=== PATIENT | male | born 1955 | race American Indian/Alaskan Native ===

== ENCOUNTER 2020-08-16 05:25 | Observation (INO) | payer MEDICAID ==
[2020-08-16 07:36] LABS: Hematocrit 35.2 % (35.5-45.6); Hemoglobin 11.6 gm/dl (11.8-15.2); Mean Corpuscular HGB Conc 33 % (32-34); Mean Corpuscular Volume 73 fl (84-94); Platelet Count 165 K/mm3 (140-440); Red Blood Count 4.83 M/mm3 (3.65-5.03); Red Cell Distribution Width 17.5 % (13.2-15.2)
[2020-08-16 07:43] LABS: Albumin 4.3 g/dL (3.9-5); Calcium 9.2 mg/dL (8.4-10.2)
[2020-08-16 08:02] LABS: Bilirubin,Urine NEG (Negative); Blood,Urine SM (Negative); Color,Urine Yellow (Yellow); Urobilinogen,Urine < 2.0 mg/dL (<2.0)
[2020-08-16 08:08] LABS: Protein,Urine >500 mg/dL (Negative)
[2020-08-16 09:59] LABS: Eosinophils # (Auto) 0.2 K/mm3 (0.0-0.4); Eosinophils % (Auto) 5.5 % (0.0-4.3); Monocytes # (Auto) 0.4 K/mm3 (0.0-0.8); Monocytes % (Auto) 8.8 % (0.0-7.3)
[2020-08-16 10:17] LABS: Basophils % (Auto) 0.5 % (0.0-1.8); Lymphocytes % (Auto) 28.7 % (13.4-35.0)
[2020-08-16 10:18] LABS: Lymphocytes # (Auto) 1.2 K/mm3 (1.2-5.4)
[2020-08-16] MEDS ORDERED: MORPHINE 4 MG/1 ML INJ IV ONE (10:51)
[2020-08-16] MEDS ORDERED: hydrALAZINE 20 MG/1 ML INJ IV ONE (10:51)
--- NOTE | 2020-08-16 10:54 | Emergency Department Report ---
HPI - General Chief Complaint: Abdominal Pain Time Seen by Provider: 08/16/20 10:29 - HPI HPI: This is a 65-year-old -L[place] male who presents to the emergency department via EMS from his personal [facility] with a complaint of a 3-day history of left-sided abdominal pain and left leg pain, in the groin and calf. He denies any fever, vomiting, diarrhea, constipation, lower extremity swelling, chest pain or shortness of breath. Patient took a Percocet with some transient relief of his pain. He does have some associated nausea without vomiting. The patient has a history of hypertension and does present with very elevated blood pressure despite alleged compliance with his medications. He also has a history of diabetes and end-stage renal disease on hemodialysis on Saturday//Saturday. The patient missed his dialysis today secondary to his current symptoms, and he missed dialysis on Saturday secondary to transportation issues. 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 He says that he originally was getting dialysis at [facility] in [place] but was just moved to a dialysis center closer to his personal m[facility] in [place]. ED Past Medical Hx - Past Medical History Previous Medical History?: Yes Hx Hypertension: Yes Hx Diabetes: Yes Hx Kidney Stones: Yes (Dialysis ,,Sat) - Surgical History Past Surgical History?: Yes Additional Surgical History: Wrist, right arm, Hip - Social History Smoking Status: Current Every Day Smoker Substance Use Type: None ED Review of Systems ROS: Stated complaint: LEFT SIDE PAIN, ELEVATED BLOOD PRESSURE Other details as noted in HPI Comment: All other systems reviewed and negative Constitutional: denies: chills, fever Eyes: denies: eye pain, vision change ENT: denies: ear pain, throat pain Respiratory: denies: cough, shortness of breath Cardiovascular: denies: chest pain, palpitations Gastrointestinal: abdominal pain, nausea. denies: vomiting Genitourinary: denies: dysuria, discharge Musculoskeletal: arthralgia, myalgia. denies: back pain, joint swelling Skin: denies: rash, lesions Neurological: denies: headache, numbness, paresthesias Physical Exam - Physical Exam Vital Signs: Vital Signs 08/16/20 05:54 Temperature 97.9 F Pulse Rate 86 Respiratory 16 Rate Blood Pressure 199/105 O2 Sat by Pulse 98 Oximetry Physical Exam: GENERAL: The patient is well-developed well-nourished. HENT: Normocephalic. Atraumatic. Patient has moist mucous membranes. EYES: Extraocular motions are intact. NECK: Supple. Trachea is midline. CHEST/LUNGS: Clear to auscultation. There is no respiratory distress noted. HEART/CARDIOVASCULAR: Regular. There is no tachycardia. ABDOMEN: Abdomen is soft. Left lower quadrant abdominal tenderness to palpation. No guarding. Patient has normal bowel sounds. There is no abdominal distention. SKIN: Skin is warm and dry. NEURO: The patient is awake, alert, and oriented. The patient is cooperative. The patient has no focal neurologic deficits. Normal speech. MUSCULOSKELETAL: There is tenderness to palpation to the right thigh and calf but no obvious deformity. There is no limitation range of motion. There is a patent left upper extremity dialysis fistula. ED Course Vital Signs 08/16/20 05:54 Temperature 97.9 F Pulse Rate 86 Respiratory 16 Rate Blood Pressure 199/105 O2 Sat by Pulse 98 Oximetry - Reevaluation(s) Reevaluation #1: 08/16/20 16:06 Lab Results 08/16/20 08/16/20 08/16/20 Range/Units 06:48 06:48 06:58 WBC 4.0 L (4.5-11.0) K/mm3 RBC 4.83 (3.65-5.03) M/mm3 Hgb 11.6 L (11.8-15.2) gm/dl Hct 35.2 L (35.5-45.6) % MCV 73 L (84-94) fl MCH 24 L (28-32) pg MCHC 33 (32-34) % RDW 17.5 H (13.2-15.2) % Plt Count 165 (140-440) K/mm3 Lymph % (Auto) 28.7 (13.4-35.0) % [place] % (Auto) 8.8 H (0.0-7.3) % Eos % (Auto) 5.5 H (0.0-4.3) % Baso % (Auto) 0.5 (0.0-1.8) % Lymph # (Auto) 1.2 (1.2-5.4) K/mm3 [place] # (Auto) 0.4 (0.0-0.8) K/mm3 Eos # (Auto) 0.2 (0.0-0.4) K/mm3 Baso # (Auto) 0.0 (0.0-0.1) K/mm3 Add Manual Diff Complete Seg Neutrophils % 56.5 (40.0-70.0) % Nucleated RBC % Not Reportable Seg Neutrophils # 2.3 (1.8-7.7) K/mm3 WBC Morphology Not Reportable Hypersegmented Neuts Not Reportable Hyposegmented Neuts Not Reportable Hypogranular Neuts Not Reportable Smudge Cells Not Reportable Toxic Granulation Not Reportable Toxic Vacuolation Not Reportable Dohle Bodies Not Reportable Pelger-Huet Anomaly Not Reportable [place] Rods Not Reportable Platelet Estimate Not Reportable Clumped Platelets Not Reportable Plt Clumps, EDTA Not Reportable Large Platelets Not Reportable Giant Platelets Not Reportable Platelet Satelliting Not Reportable Plt Morphology Comment Not Reportable RBC Morphology Not Reportable Dimorphic RBCs Not Reportable Polychromasia Not Reportable Hypochromasia Not Reportable Poikilocytosis Not Reportable Anisocytosis Not Reportable Microcytosis Not Reportable Macrocytosis Not Reportable Spherocytes Not Reportable Pappenheimer Bodies Not Reportable Sickle Cells Not Reportable Target Cells Not Reportable Tear Drop Cells Not Reportable Ovalocytes Not Reportable Helmet Cells Not Reportable Patel-[place] Bodies Not Reportable [place] Rings Not Reportable [place] Cells Not Reportable Bite Cells Not Reportable Crenated Cell Not Reportable Elliptocytes Not Reportable Acanthocytes (Spur) Not Reportable Rouleaux Not Reportable Hemoglobin C Crystals Not Reportable Schistocytes Not Reportable Malaria parasites Not Reportable Hieu Bodies Not Reportable Hem Pathologist Commnt No Sodium 140 (137-145) mmol/L Potassium 5.5 H (3.6-5.0) mmol/L Chloride 106.7 (98-107) mmol/L Carbon Dioxide 19 L (22-30) mmol/L Anion Gap 20 mmol/L BUN 58 H (9-20) mg/dL Creatinine 7.1 H (0.8-1.3) mg/dL Estimated GFR 9 ml/min BUN/Creatinine Ratio 8 % Glucose 94 (75-100) mg/dL Calcium 9.2 (8.4-10.2) mg/dL Total Bilirubin 0.50 (0.1-1.2) mg/dL AST 31 (5-40) units/L ALT 24 (7-56) units/L Alkaline Phosphatase 164 H (35-129) units/L Total Protein 8.1 (6.3-8.2) g/dL Albumin 4.3 (3.9-5) g/dL Albumin/Globulin Ratio 1.1 % Urine Color Yellow (Yellow) Urine Turbidity Clear (Clear) Urine pH 7.0 (5.0-7.0) Ur Specific [place] 1.012 (1.003-1.030) Urine Protein >500 (Negative) mg/dL Urine Glucose (UA) Neg (Negative) mg/dL Urine Ketones Neg (Negative) mg/dL Urine Blood Sm (Negative) Urine Nitrite Neg (Negative) Urine Bilirubin Neg (Negative) Urine Urobilinogen < 2.0 (<2.0) mg/dL Ur Leukocyte Esterase Neg (Negative) Urine WBC (Auto) 1.0 (0.0-6.0) /HPF Urine RBC (Auto) 5.0 (0.0-6.0) /HPF U Epithel Cells (Auto) 1.0 (0-13.0) /HPF - Consultations Consultation #1: 08/16/20 13:08 I spoke with Elizabeth, nurse practitioner for [facility] nephrology. She spoke with Dr. Zarate and they will provide dialysis orders for this patient in consult. ED Medical Decision Making - Lab Data Result diagrams: 08/16/20 06:48 08/16/20 06:48 - Radiology Data Radiology results: report reviewed CT abdomen pelvis wo con INDICATION: left sided abd pain. TECHNIQUE: All CT scans at this location are performed using the following dose modulation technique: Automated exposure control. Helical slices were obtained through the abdomen and pelvis. No contrast is administered. COMPARISON: None available. FINDINGS: Abdomen: There is linear atelectasis in the lung bases. No acute abnormality seen in the liver, spleen, pancreas, adrenal glands, kidneys. There is dilatation of the common bile duct which measures up to 2 cm. There is been prior cholecystectomy. There are small retroperitoneal nodes. These are not path ologically enlarged. There is a moderate to large amount stool noted in the colon raising possibility of constipation. There is no obstruction, inflammation, or free air. Pelvis: There are no ureteral calculi. Atherosclerotic calcifications are noted in the iliac arteries. There is no adenopathy. There is a moderate to large amount stool noted in the colon. The appendix is unremarkable. There is no obstruction or inflammation. On review of bone windows, no acute osseous abnormalities are seen. IMPRESSION: 1. There is no bowel obstruction, inflammation, or free air. There are no abnormal fluid collections. There is dilatation of the common bile duct which measures up to 2 cm in diameter. The patient is undergone prior cholecystectomy. There is atherosclerotic calcification in the aorta and arteries. There is possible constipation. DUPLEX DOPPLER LOWER EXTREMITY VEINS, LEFT INDICATION / CLINICAL INFORMATION: left leg pain, groin and calf. TECHNIQUE: Duplex doppler imaging was performed through the veins of the left lower extremity using venous compression and other maneuvers. COMPARISON: None available. FINDINGS: LEFT COMMON FEMORAL VEIN: Negative. LEFT FEMORAL VEIN: Negative. LEFT POPLITEAL VEIN: Negative. LEFT CALF VEINS: Negative. ADDITIONAL FINDINGS: None. IMPRESSION: 1. No sonographic evidence for DVT in the left lower extremity. - Medical Decision Making This patient presents to the emergency department with a complaint of left-sided abdominal pain, as well as pain to the left groin, left thigh and left calf. The abdomen is tender to palpation to the left lower quadrant, but otherwise it is soft, nondistended and nontoxic in appearance. CT scan of the abdomen and pelvis without contrast does not show any acute process other than some constipation. He had a left lower extremity venous Doppler ultrasound that was negative for DVT. Patient's labs are mostly unremarkable except for some mild hyperkalemia with potassium of 5.5, and the renal insufficiency consistent with his end-stage renal disease. Nephrology was contacted and consulted and the patient will receive dialysis today. The patient did present with extremely elevated blood pressure despite alleged compliance with his antihypertensive medication. He was given a few doses of IV antihypertensive meds here without much relief, but he should get some improvement with dialysis. Patient was accepted for admission by the hospitalist, Dr. Mansfield. Critical Care Time: No Critical care attestation.: If time is entered above; I have spent that time in minutes in the direct care of this critically ill patient, excluding procedure time. ED Disposition Clinical Impression: ESRD needing dialysis, Hyperkalemia, Hypertensive urgency Disposition: OP ADMIT IP TO THIS HOSP Is pt being admited?: Yes Condition: Fair Time of Disposition: 14:15
--- NOTE | 2020-08-16 12:25 | Vascular Lab Report ---
DUPLEX DOPPLER LOWER EXTREMITY VEINS, LEFT INDICATION / CLINICAL INFORMATION: left leg pain, groin and calf. TECHNIQUE: Duplex doppler imaging was performed through the veins of the left lower extremity using venous compr ession and other maneuvers. COMPARISON: None available. FINDINGS: LEFT COMMON FEMORAL VEIN: Negative. LEFT FEMORAL VEIN: Negative. LEFT POPLITEAL VEIN: Negative. LEFT CALF VEINS: Negative. ADDITIONAL FINDINGS: None. IMPRESSION: 1. No sonographic evidence for DVT in the left lower extremity. Signer Name: Ian Macedo MD Signed: 08/16/2020 12:20 PM Workstation Name: [id number]
--- NOTE | 2020-08-16 13:11 | Cat Scan Report ---
CT abdomen pelvis wo con INDICATION: left sided abd pain. TECHNIQUE: All CT scans at this location are performed using the following dose modulation technique: Automated exposure control. Helical slices were obtained through the abdomen and pelvis. No contrast is adminis tered. COMPARISON: None available. FINDINGS: Abdomen: There is linear atelectasis in the lung bases. No acute abnormality seen in the liver, splee n, pancreas, adrenal glands, kidneys. There is dilatation of the common bile duct which measures up t o 2 cm. There is been prior cholecystectomy. There are small retroperitoneal nodes. These are not pathologically enlarged. There is a moderate to large amount stool noted in the colon raising possibility of constipation. The re is no obstruction, inflammation, or free air. Pelvis: There are no ureteral calculi. Atherosclerotic calcifications are noted in the iliac arteries . There is no adenopathy. There is a moderate to large amount stool noted in the colon. The appendix is unremarkable. There is no obstruction or inflammation. On review of bone windows, no acute osseous abnormalities are seen. IMPRESSION: 1. There is no bowel obstruction, inflammation, or free air. There are no abnormal fluid collections. There is dilatation of the common bile duct which measures up to 2 cm in diameter. The patient is und ergone prior cholecystectomy. There is atherosclerotic calcification in the aorta and arteries. There is possible constipation. Signer Name: Jn Rodriguez MD Signed: 08/16/2020 1:06 PM Workstation Name: [id number]
[2020-08-16] MEDS ORDERED: SODIUM CHLORIDE 0.9% 100 ML IV PRN (14:42)
[2020-08-16 17:20] LABS: Hepatitis B Surface Antigen Non-Reactive (Negative); Hepatitis C Virus Antibody Reactive (NonReactive)
[2020-08-16] MEDS ORDERED: HYDROmorphone 1 MG/1 ML INJ IV PRN (22:35)
[2020-08-16] MEDS ORDERED: ONDANSETRON 4 MG/2 ML INJ IV PRN (22:35)
[2020-08-16] MEDS ORDERED: ACETAMINOPHEN 325 MG TAB PO PRN (22:35)
--- NOTE | 2020-08-16 22:40 | History and Physical Report ---
History of Present Illness Date of examination: 08/16/20 Date of admission: 08/16/20 14:15 Chief complaint: L flank pain since am History of present illness: This is a 65-year-old -[place] Islander male who presents to the emergency department via EMS from his personal [facility] with a complaint of a 3-day history of left-sided abdominal pain and left leg pain, in the groin and calf. He denies any fever, vomiting, diarrhea, constipation, lower extremity swelling, chest pain or shortness of breath. Patient took a Percocet with some transient relief of his pain. He does have some associated nausea without vomiting. The patient has a history of hypertension and does present with very elevated blood pressure despite alleged compliance with his medications. He also has a history of diabetes and end-stage renal disease on hemodialysis on Saturday// Saturday. The patient missed his dialysis today secondary to his current symptoms, and he missed dialysis on Saturday secondary to transportation issues. 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 He says that he originally was getting dialysis at [facility] in [place] but was just moved to a dialysis center closer to his personal usp in [place]. - Past Medical History Previous Medical History?: Yes --Hypertension: Yes --Diabetes: Yes -- Kidney Stones: Yes (Dialysis ,,Sat) - Surgical History Past Surgical History?: Yes Additional Surgical History: Wrist, right arm, Hip - Social History Smoking Status: Current Every Day Smoker Substance Use Type: None Review of Systems ROS: Stated complaint: LEFT SIDE PAIN, ELEVATED BLOOD PRESSURE Other details as noted in HPI Comment: All other systems reviewed and negative Constitutional: denies: chills, fever Eyes: denies: eye pain, vision change ENT: denies: ear pain, throat pain Respiratory: denies: cough, shortness of breath Cardiovascular: denies: chest pain, palpitations Gastrointestinal: abdominal pain, nausea. denies: vomiting Genitourinary: denies: dysuria, discharge Musculoskeletal: arthralgia, myalgia. denies: back pain, joint swelling Skin: denies: rash, lesions Neurological: denies: headache, numbness, paresthesias Medications and Allergies Allergies Allergy/AdvReac Type Severity Reaction Status Date / Time No Known Allergies Allergy Unverified 11/17/20 06:02 Active Meds: Active Medications Sodium Chloride (Nacl 0.9%) 100 mls @ 999 mls/hr IV CHRISTEN PRN PRN Reason: Hypotension Exam - Constitutional Vitals: Temp Pulse Resp BP Pulse Ox 98.1 F 77 16 178/97 98 08/16/20 22:18 08/16/20 22:18 08/16/20 22:18 08/16/20 22:18 08/16/20 22:18 General appearance: Present: mild distress, well-nourished - EENT Eyes: Present: PERRL ENT: hearing intact, clear oral mucosa - Neck Neck: Present: supple, normal ROM - Respiratory Respiratory effort: normal Respiratory: bilateral: CTA - Cardiovascular Heart rate: 78 Rhythm: regular Heart Sounds: Present: S1 & S2. Absent: rub, click - Extremities Extremities: no ischemia, pulses intact, pulses symmetrical, No edema Peripheral Pulses: within normal limits - Abdominal General gastrointestinal: Present: soft, non-tender, non-distended, normal bowel sounds Male genitourinary: Present: normal - Rectal Rectal Exam: deferred - Integumentary Integumentary: Present: clear, warm, dry - Musculoskeletal Musculoskeletal: gait normal, strength equal bilaterally - Psychiatric Psychiatric: appropriate mood/affect, intact judgment & insight - Neurologic Neurologic: CNII-XII intact, moves all extremities - Allied Health Allied health notes reviewed: nursing, case management Results - Labs CBC & Chem 7: 08/17/20 04:25 08/17/20 04:25 Labs: Laboratory Last Values WBC 4.0 K/mm3 (4.5-11.0) L 08/16/20 06:48 RBC 4.83 M/mm3 (3.65-5.03) 08/16/20 06:48 Hgb 11.6 gm/dl (11.8-15.2) L 08/16/20 06:48 Hct 35.2 % (35.5-45.6) L 08/16/20 06:48 MCV 73 fl (84-94) L 08/16/20 06:48 MCH 24 pg (28-32) L 08/16/20 06:48 MCHC 33 % (32-34) 08/16/20 06:48 RDW 17.5 % (13.2-15.2) H 08/16/20 06:48 Plt Count 165 K/mm3 (140-440) 08/16/20 06:48 Lymph % (Auto) 28.7 % (13.4-35.0) 08/16/20 06:48 [place] % (Auto) 8.8 % (0.0-7.3) H 08/16/20 06:48 Eos % (Auto) 5.5 % (0.0-4.3) H 08/16/20 06:48 Baso % (Auto) 0.5 % (0.0-1.8) 08/16/20 06:48 Lymph # (Auto) 1.2 K/mm3 (1.2-5.4) 08/16/20 06:48 [place] # (Auto) 0.4 K/mm3 (0.0-0.8) 08/16/20 06:48 Eos # (Auto) 0.2 K/mm3 (0.0-0.4) 08/16/20 06:48 Baso # (Auto) 0.0 K/mm3 (0.0-0.1) 08/16/20 06:48 Add Manual Diff Complete 08/16/20 06:48 Seg Neutrophils % 56.5 % (40.0-70.0) 08/16/20 06:48 Nucleated RBC % Not Reportable 08/16/20 06:48 Seg Neutrophils # 2.3 K/mm3 (1.8-7.7) 08/16/20 06:48 WBC Morphology Not Reportable 08/16/20 06:48 Hypersegmented Neuts Not Reportable 08/16/20 06:48 Hyposegmented Neuts Not Reportable 08/16/20 06:48 Hypogranular Neuts Not Reportable 08/16/20 06:48 Smudge Cells Not Reportable 08/16/20 06:48 Toxic Granulation Not Reportable 08/16/20 06:48 Toxic Vacuolation Not Reportable 08/16/20 06:48 Dohle Bodies Not Reportable 08/16/20 06:48 Pelger-Huet Anomaly Not Reportable 08/16/20 06:48 [place] Rods Not Reportable 08/16/20 06:48 Platelet Estimate Not Reportable 08/16/20 06:48 Clumped Platelets Not Reportable 08/16/20 06:48 Plt Clumps, EDTA Not Reportable 08/16/20 06:48 Large Platelets Not Reportable 08/16/20 06:48 Giant Platelets Not Reportable 08/16/20 06:48 Platelet Satelliting Not Reportable 08/16/20 06:48 Plt Morphology Comment Not Reportable 08/16/20 06:48 RBC Morphology Not Reportable 08/16/20 06:48 Dimorphic RBCs Not Reportable 08/16/20 06:48 Polychromasia Not Reportable 08/16/20 06:48 Hypochromasia Not Reportable 08/16/20 06:48 Poikilocytosis Not Reportable 08/16/20 06:48 Anisocytosis Not Reportable 08/16/20 06:48 Microcytosis Not Reportable 08/16/20 06:48 Macrocytosis Not Reportable 08/16/20 06:48 Spherocytes Not Reportable 08/16/20 06:48 Pappenheimer Bodies Not Reportable 08/16/20 06:48 Sickle Cells Not Reportable 08/16/20 06:48 Target Cells Not Reportable 08/16/20 06:48 Tear Drop Cells Not Reportable 08/16/20 06:48 Ovalocytes Not Reportable 08/16/20 06:48 Helmet Cells Not Reportable 08/16/20 06:48 Patel-[place] Bodies Not Reportable 08/16/20 06:48 [place] Rings Not Reportable 08/16/20 06:48 [place] Cells Not Reportable 08/16/20 06:48 Bite Cells Not Reportable 08/16/20 06:48 Crenated Cell Not Reportable 08/16/20 06:48 Elliptocytes Not Reportable 08/16/20 06:48 Acanthocytes (Spur) Not Reportable 08/16/20 06:48 Rouleaux Not Reportable 08/16/20 06:48 Hemoglobin C Crystals Not Reportable 08/16/20 06:48 Schistocytes Not Reportable 08/16/20 06:48 Malaria parasites Not Reportable 08/16/20 06:48 Hieu Bodies Not Reportable 08/16/20 06:48 Hem Pathologist Commnt No 08/16/20 06:48 Sodium 140 mmol/L (137-145) 08/16/20 06:48 Potassium 5.5 mmol/L (3.6-5.0) H 08/16/20 06:48 Chloride 106.7 mmol/L (98-107) 08/16/20 06:48 Carbon Dioxide 19 mmol/L (22-30) L 08/16/20 06:48 Anion Gap 20 mmol/L 08/16/20 06:48 BUN 58 mg/dL (9-20) H 08/16/20 06:48 Creatinine 7.1 mg/dL (0.8-1.3) H 08/16/20 06:48 Estimated GFR 9 ml/min 08/16/20 06:48 BUN/Creatinine Ratio 8 % 08/16/20 06:48 Glucose 94 mg/dL (75-100) 08/16/20 06:48 POC Glucose 80 mg/dL (70-105) 08/16/20 22:37 Calcium 9.2 mg/dL (8.4-10.2) 08/16/20 06:48 Total Bilirubin 0.50 mg/dL (0.1-1.2) 08/16/20 06:48 AST 31 units/L (5-40) 08/16/20 06:48 ALT 24 units/L (7-56) 08/16/20 06:48 Alkaline Phosphatase 164 units/L (35-129) H 08/16/20 06:48 Total Protein 8.1 g/dL (6.3-8.2) 08/16/20 06:48 Albumin 4.3 g/dL (3.9-5) 08/16/20 06:48 Albumin/Globulin Ratio 1.1 % 08/16/20 06:48 Urine Color Yellow (Yellow) 08/16/20 06:58 Urine Turbidity Clear (Clear) 08/16/20 06:58 Urine pH 7.0 (5.0-7.0) 08/16/20 06:58 Ur Specific [place] 1.012 (1.003-1.030) 08/16/20 06:58 Urine Protein >500 mg/dL (Negative) 08/16/20 06:58 Urine Glucose (UA) Neg mg/dL (Negative) 08/16/20 06:58 Urine Ketones Neg mg/dL (Negative) 08/16/20 06:58 Urine Blood Sm (Negative) 08/16/20 06:58 Urine Nitrite Neg (Negative) 08/16/20 06:58 Urine Bilirubin Neg (Negative) 08/16/20 06:58 Urine Urobilinogen < 2.0 mg/dL (<2.0) 08/16/20 06:58 Ur Leukocyte Esterase Neg (Negative) 08/16/20 06:58 Urine WBC (Auto) 1.0 /HPF (0.0-6.0) 08/16/20 06:58 Urine RBC (Auto) 5.0 /HPF (0.0-6.0) 08/16/20 06:58 U Epithel Cells (Auto) 1.0 /HPF (0-13.0) 08/16/20 06:58 Hepatitis A IgM Ab Non-reactive (NonReactive) 08/16/20 16:10 Hep Bs Antigen Non-reactive (Negative) 08/16/20 16:10 Hep B Core IgM Ab Non-reactive (NonReactive) 08/16/20 16:10 Hepatitis C Antibody Reactive (NonReactive) A 08/16/20 16:10 Short CBC 08/16/20 08/17/20 Range/Units 06:48 04:25 WBC 4.0 L 3.3 L (4.5-11.0) K/mm3 Hgb 11.6 L 10.9 L (11.8-15.2) gm/dl Hct 35.2 L 33.0 L (35.5-45.6) % Plt Count 165 147 (140-440) K/mm3 BMP 08/16/20 08/17/20 06:48 04:25 Sodium 140 141 Potassium 5.5 H 4.8 Chloride 106.7 99.8 Carbon Dioxide 19 L 32 H D BUN 58 H 32 H Creatinine 7.1 H 4.9 H Glucose 94 99 Calcium 9.2 8.6 Liver Function 08/16/20 08/17/20 Range/Units 06:48 04:25 Total Bilirubin 0.50 0.30 (0.1-1.2) mg/dL AST 31 35 (5-40) units/L ALT 24 22 (7-56) units/L Alkaline Phosphatase 164 H 153 H (35-129) units/L Albumin 4.3 3.8 L (3.9-5) g/dL Urine 08/16/20 Range/Units 06:58 Urine Color Yellow (Yellow) Urine pH 7.0 (5.0-7.0) Ur Specific [place] 1.012 (1.003-1.030) Urine Protein >500 (Negative) mg/dL Urine Glucose (UA) Neg (Negative) mg/dL - Imaging and Cardiology EKG: report reviewed Buck/IV: IV Catheter Type [Right Hand] INT / Saline Lock Assessment and Plan Advance Directives: Yes (Full code) VTE prophylaxis?: Chemical Plan of care discussed with patient/family: Yes - Patient Problems (1) Hyperkalemia Current Visit: Yes Status: Acute Plan to address problem: Treated Recheck K level (2) ESRD needing dialysis Current Visit: Yes Status: Chronic Plan to address problem: HD Nephrology consult (3) Hypertensive urgency Current Visit: Yes Status: Acute Plan to address problem: patient started on Valsartan coreg and Amlodipine Labetolol IV prn (4) Abdominal pain Current Visit: Yes Status: Acute Qualifiers: Abdominal location: left upper quadrant Qualified Code(s): R10.12 - Left upper quadrant pain Plan to address problem: Non specific Symptomatic treatment (5) DVT prophylaxis Current Visit: Yes Status: Acute Plan to address problem: On Heparin and GI prophylaxis
[2020-08-16] MEDS: oxyCODONE /ACETAMINOPHEN 5-325MG TAB PO PRN (23:11)
[2020-08-17 05:16] LABS: Hemoglobin 10.9 gm/dl (11.8-15.2); Mean Corpuscular HGB Conc 33 % (32-34); Mean Corpuscular Volume 73 fl (84-94); Platelet Count 147 K/mm3 (140-440); Red Blood Count 4.52 M/mm3 (3.65-5.03); Red Cell Distribution Width 17.8 % (13.2-15.2)
[2020-08-17 05:33] LABS: Albumin 3.8 g/dL (3.9-5); Calcium 8.6 mg/dL (8.4-10.2)
[2020-08-17 06:57] LABS: Anisocytosis 1+; Basophils % (Manual) 0 % (0.0-1.8); Hypochromasia Few; Schistocytes Few; Target Cells 1+; Total Cells Counted 100
[2020-08-17] MEDS: oxyCODONE /ACETAMINOPHEN 5-325MG TAB PO PRN ×2 (06:57→11:45)
[2020-08-17 06:58] LABS: Ovalocytes Few; Platelet Estimate Consistent w Auto; Tear Drop Cells Few
[2020-08-17] MEDS ORDERED: carvediloL 12.5 MG TAB PO SCH (08:00)
[2020-08-17] MEDS ORDERED: VALSARTAN 160MG TAB PO SCH (08:00)
[2020-08-17] MEDS ORDERED: amLODIPine 10 MG TAB PO SCH (08:00)
--- NOTE | 2020-08-17 09:16 | Consultation ---
History of Present Illness - Reason for Consult Consult date: 08/17/20 end stage renal disease Requesting physician: JOHANA BRADFORD - History of Present Illness This is a 65-year-old -[place] male who presents to the emergency department via EMS from his personal correction with a complaint of a 3-day history of left-sided abdominal pain and left leg pain, in the groin and calf. He denies any fever, vomiting, diarrhea, constipation, lower extremity swelling, chest pain or shortness of breath. Patient took a Percocet with some transient relief of his pain. He does have some associated nausea without vomiting. The patient has a history of hypertension and does present with very elevated blood pressure despite alleged compliance with his medications. He also has a history of diabetes and end-stage renal disease on hemodialysis on Saturday/d /Saturday. The patient missed his dialysis today secondary to his current symptoms, and he missed dialysis on Saturday secondary to transportation issues. He does not know the name of his tube carrier. He says that he originally was getting dialysis at [facility] in [place] but was just moved to a dialysis center closer to his personal correction in [place]. - Past Medical History Previous Medical History?: Yes Hx Hypertension: Yes Hx Diabetes: Yes Hx Kidney Stones: Yes (Dialysis ,,Sat) - Surgical History Past Surgical History?: Yes Additional Surgical History: Wrist, right arm, Hip - Social History Smoking Status: Current Every Day Smoker Substance Use Type: None ROS: Stated complaint: LEFT SIDE PAIN, ELEVATED BLOOD PRESSURE Other details as noted in HPI Comment: All other systems reviewed and negative Constitutional: denies: chills, fever Eyes: denies: eye pain, vision change ENT: denies: ear pain, throat pain Respiratory: denies: cough, shortness of breath Cardiovascular: denies: chest pain, palpitations Gastrointestinal: abdominal pain, nausea. denies: vomiting Genitourinary: denies: dysuria, discharge Musculoskeletal: arthralgia, myalgia. denies: back pain, joint swelling Skin: denies: rash, lesions Neurological: denies: headache, numbness, paresthesias Medications and Allergies Allergies Allergy/AdvReac Type Severity Reaction Status Date / Time No Known Allergies Allergy Unverified 08/16/20 06:02 Active Meds: Active Medications Acetaminophen (Tylenol) 650 mg PO Q4H PRN PRN Reason: Pain MILD(1-3)/Fever >100.5/[place] Amlodipine Besylate (Amlodipine) 10 mg PO QDAY [facility] Carvedilol (Coreg) 12.5 mg PO BID [facility] Famotidine (Pepcid) 20 mg PO QAM [facility] Hydromorphone HCl (Dilaudid) 0.5 mg IV Q3H PRN PRN Reason: Pain , Severe (7-10) Sodium Chloride (Nacl 0.9%) 100 mls @ 999 mls/hr IV CHRISTEN PRN PRN Reason: Hypotension Ondansetron HCl (Zofran) 4 mg IV Q8H PRN PRN Reason: Nausea And Vomiting Oxycodone/Acetaminophen (Percocet 5/325) 1 tab PO Q6H PRN PRN Reason: Pain, Moderate (4-6) Last Admin: 08/17/20 06:57 Dose: 1 tab Documented by: Sodium Chloride (Sodium Chloride Flush Syringe 10 Ml) 10 ml IV BID [facility] Sodium Chloride (Sodium Chloride Flush Syringe 10 Ml) 10 ml IV PRN PRN PRN Reason: LINE FLUSH Last Admin: 08/16/20 23:12 Dose: 10 ml Documented by: Valsartan (Diovan) 160 mg PO Q12HR [facility] Exam - Vital Signs Vital signs: Vital Signs Temp Pulse Resp BP Pulse Ox 97.9 F 86 16 199/105 98 08/16/20 05:54 08/16/20 05:54 08/16/20 05:54 08/16/20 05:54 08/16/20 05:54 - Physical Exam Narrative exam: GENERAL: The patient is well-developed well-nourished. HENT: Normocephalic. Atraumatic. Patient has moist mucous membranes. EYES: Extraocular motions are intact. NECK: Supple. Trachea is midline. CHEST/LUNGS: Clear to auscultation. There is no respiratory distress noted. HEART/CARDIOVASCULAR: Regular. There is no tachycardia. ABDOMEN: Abdomen is soft. Left lower quadrant abdominal tenderness to palpation. No guarding. Patient has normal bowel sounds. There is no abdominal distention. SKIN: Skin is warm and dry. NEURO: The patient is awake, alert, and oriented. The patient is cooperative. The patient has no focal neurologic deficits. Normal speech. MUSCULOSKELETAL: There is tenderness to palpation to the right thigh and calf but no obvious deformity. There is no limitation range of motion. There is a patent left upper extremity dialysis fistula. Results - Lab Results 08/17/20 04:25 08/17/20 04:25 Most recent lab results Calcium 8.6 mg/dL (8.4-10.2) 08/17/20 04:25 Assessment and Plan IMpression: * ESRD * HTN * Noncompliance with dialysis * abdominal pain Plan: * s/p hd yesterday, continue q TTHSAT * abd pain workup per primary team * strict i/os and renal diet * fluid restriction * now requesting a personal correction placement, rec case management consult * he is stable for dc from renal standpoint, will follow up for dialysis only
[2020-08-17] MEDS ORDERED: FAMOTIDINE 20 MG TAB PO SCH (10:00)
[2020-08-17] MEDS ORDERED: hydrALAZINE 100 MG TAB PO SCH (10:08)
--- NOTE | 2020-08-17 10:10 | Discharge Summary ---
Providers - Providers Date of Admission: 08/16/20 14:15 Date of discharge: 08/17/20 Attending physician: JOHANA BRADFORD 08/16/20 13:52 Consult to Physician [CONS] Routine Comment: Consulting Provider: GARRICK MATOS Physician Instructions: Reason For Exam: dialysis 08/17/20 09:53 Consult to Physician [CONS] Routine Comment: Consulting Provider: ANA SHEA Physician Instructions: Reason For Exam: CBD dilatation Primary care physician: [employer]ET[employer] MANAGER Hospitalization Condition: Fair Hospital course: This is a 65-year-old -[place] male with h/o HTN, DM, ESRD on HD TTS who presents to the emergency department via EMS from his personal fpc with a complaint of a 3-day history of left-sided abdominal pain and left leg pain, in the groin and calf. he patient missed his dialysis secondary to his current symptoms, and secondary to transportation issues. Patient was further evaluated with abdomen pelvis CT which showed 2 cm dilated common bile duct and no other acute events. His lower extremity Doppler was negative for any acute DVT. Nephrology was consulted and patient was dialyzed. Patient noted to be hyperkalemic on admission which resolved after getting dialysis. Patient was tolerating diet and did not show any nausea vomiting or diarrhea. Patient was then discharged home with outpatient follow-up in stable condition.. Discharge diagnosis: End-stage renal disease Hyperkalemia, resolved Hypertension, uncontrolled Diabetes mellitus type 2 Abdominal pain, resolved Disposition: DC-01 TO HOME OR SELFCARE Time spent for discharge: 34 minutes Core Measure Documentation - Palliative Care Palliative Care/ Comfort Measures: Not Applicable - Core Measures Any of the following diagnoses?: none Exam - Physical Exam Narrative exam: General appearance: Present: mild distress, well-nourished - EENT Eyes: Present: PERRL ENT: hearing intact, clear oral mucosa - Neck Neck: Present: supple, normal ROM - Respiratory Respiratory effort: normal Respiratory: bilateral: CTA - Cardiovascular Heart rate: 78 Rhythm: regular Heart Sounds: Present: S1 & S2. Absent: rub, click - Extremities Extremities: no ischemia, pulses intact, pulses symmetrical, No edema Peripheral Pulses: within normal limits - Abdominal General gastrointestinal: Present: soft, non-tender, non-distended, normal bowel sounds Male genitourinary: Present: normal - Rectal Rectal Exam: deferred - Integumentary Integumentary: Present: clear, warm, dry - Musculoskeletal Musculoskeletal: gait normal, strength equal bilaterally - Psychiatric Psychiatric: appropriate mood/affect, intact judgment & insight - Neurologic Neurologic: CNII-XII intact, moves all extremities - Constitutional Vitals: Temp Pulse Resp BP Pulse Ox 97.5 F L 74 18 175/92 98 08/17/20 05:22 08/17/20 05:22 08/17/20 06:57 08/17/20 05:22 08/17/20 05:22 Plan Activity: advance as tolerated Weight Bearing Status: Non-Weight Bearing Diet: diabetic, renal Special Instructions: restrict fluid intake to (1.5L daily), record daily BP diary, record blood sugar diary Follow up with: PRIMARY CARE, [Primary Care Provider] - 7 Days Prescriptions: amLODIPine 10 mg PO QDAY #30 tablet hydrALAZINE [Apresoline TAB] 100 mg PO TID #90 tab carvediloL [Coreg] 12.5 mg PO BID #60 tablet Valsartan [Diovan] 160 mg PO Q12HR #60 tablet Aspirin EC [Halfprin EC] 81 mg PO QDAY #30 tablet. Famotidine [Pepcid] 20 mg PO QAM #30 tablet
[2020-08-17] MEDS ORDERED: POLYETHYLENE GLYCOL 3350 17 GM POWDER PO SCH (13:00)
--- NOTE | 2020-08-17 15:06 | Gastroenterology Consultation ---
History of Present Illness - Reason for Consult Consult date: 08/17/20 dilated CBD Requesting physician: JOHANA BRADFORD - History of Present Illness This is a 65 yo male with pmh of ESRD on HD and h/o cholecystectomy admitted for left sided abdominal pain, left groin pain, and left calf pain. He missed HD session due to transportation. GI consulted for evaluation of dilated CBD finding on CT a/p. Labs notable for mild elevation of alk phos. No fever/chills, diarrhea, nausea/vomiting or weight loss. Medication list reviewed. Medications and Allergies Allergies Allergy/AdvReac Type Severity Reaction Status Date / Time No Known Allergies Allergy Unverified 08/16/20 06:02 Home Medications Medication Instructions Recorded Confirmed Last Taken Type Aspirin EC [Halfprin EC] 81 mg PO QDAY #30 tablet. 08/17/20 Unknown Rx Famotidine [Pepcid] 20 mg PO QAM #30 tablet 08/17/20 Unknown Rx Valsartan [Diovan] 160 mg PO Q12HR #60 tablet 08/17/20 Unknown Rx amLODIPine 10 mg PO QDAY #30 tablet 08/17/20 Unknown Rx carvediloL [Coreg] 12.5 mg PO BID #60 tablet 08/17/20 Unknown Rx hydrALAZINE [Apresoline TAB] 100 mg PO TID #90 tab 08/17/20 Unknown Rx polyethylene glycoL 3350 [Miralax 17 gm PO QDAY powd.pack 08/17/20 Unknown Rx 3350] Active Meds: Active Medications Acetaminophen (Tylenol) 650 mg PO Q4H PRN PRN Reason: Pain MILD(1-3)/Fever >100.5/[place] Amlodipine Besylate (Amlodipine) 10 mg PO QDAY [facility] Last Admin: 08/17/20 11:47 Dose: 10 mg Documented by: Carvedilol (Coreg) 12.5 mg PO BID [facility] Last Admin: 08/17/20 11:45 Dose: 12.5 mg Documented by: Famotidine (Pepcid) 20 mg PO QAM [facility] Last Admin: 08/17/20 11:45 Dose: 20 mg Documented by: Hydralazine HCl (Apresoline) 100 mg PO TID [facility] Last Admin: 08/17/20 12:50 Dose: Not Given Documented by: Hydromorphone HCl (Dilaudid) 0.5 mg IV Q3H PRN PRN Reason: Pain , Severe (7-10) Sodium Chloride (Nacl 0.9%) 100 mls @ 999 mls/hr IV CHRISTEN PRN PRN Reason: Hypotension Ondansetron HCl (Zofran) 4 mg IV Q8H PRN PRN Reason: Nausea And Vomiting Oxycodone/Acetaminophen (Percocet 5/325) 1 tab PO Q6H PRN PRN Reason: Pain, Moderate (4-6) Last Admin: 08/17/20 11:45 Dose: 1 tab Documented by: Polyethylene Glycol (Miralax 3350) 17 gm PO QDAY [facility] Last Admin: 08/17/20 12:50 Dose: 17 gm Documented by: Sodium Chloride (Sodium Chloride Flush Syringe 10 Ml) 10 ml IV BID [facility] Last Admin: 08/17/20 12:52 Dose: 10 ml Documented by: Sodium Chloride (Sodium Chloride Flush Syringe 10 Ml) 10 ml IV PRN PRN PRN Reason: LINE FLUSH Last Admin: 08/16/20 23:12 Dose: 10 ml Documented by: Valsartan (Diovan) 160 mg PO Q12HR [facility] Last Admin: 08/17/20 11:45 Dose: 160 mg Documented by: Review of Systems - Review of Systems Constitutional: no weight loss, no weight gain, no fever, no chills Cardiovascular: no chest pain, no edema Gastrointestinal: abdominal pain, no nausea, no vomiting, no diarrhea, no constipation, no hematochezia Neurological: weakness Psychiatric: anxiety Endocrine: no cold intolerance Hematologic/Lymphatic: no easy bruising Exam - Constitutional Vital Signs: Temp Pulse Resp BP Pulse Ox 98.5 F 78 18 133/71 97 08/17/20 11:43 08/17/20 11:43 08/17/20 11:43 08/17/20 11:43 08/17/20 11:43 General appearance: no acute distress - EENT Eyes: EOM intact ENT: hearing intact - Neck Neck: supple - Respiratory Respiratory effort: normal - Cardiovascular Rhythm: regular Heart Sounds: Present: S1 & S2 - Gastrointestinal General gastrointestinal: Present: soft, non-tender, non-distended, normal bowel sounds - Integumentary Integumentary: Present: clear, warm - Labs CBC & Chem 7: 08/17/20 04:25 08/17/20 04:25 Lab Results: Laboratory Results - last 24 hr 08/16/20 08/16/20 08/16/20 06:48 16:10 22:37 WBC RBC Hgb Hct MCV MCH MCHC RDW Plt Count Add Manual Diff Total Counted Seg Neuts % (Manual) Band Neutrophils % Lymphocytes % (Manual) Reactive Lymphs % (Man) Monocytes % (Manual) Eosinophils % (Manual) Basophils % (Manual) Metamyelocytes % Myelocytes % Promyelocytes % Blast Cells % Nucleated RBC % Seg Neutrophils # Man Band Neutrophils # Lymphocytes # (Manual) Abs React Lymphs (Man) Monocytes # (Manual) Eosinophils # (Manual) Basophils # (Manual) Metamyelocytes # Myelocytes # Promyelocytes # Blast Cells # WBC Morphology Hypersegmented Neuts Hyposegmented Neuts Hypogranular Neuts Smudge Cells Toxic Granulation Toxic Vacuolation Dohle Bodies Pelger-Huet Anomaly [place] Rods Platelet Estimate Clumped Platelets Plt Clumps, EDTA Large Platelets Giant Platelets Platelet Satelliting Plt Morphology Comment RBC Morphology Dimorphic RBCs Polychromasia Hypochromasia Poikilocytosis Anisocytosis Microcytosis Macrocytosis Spherocytes Pappenheimer Bodies Sickle Cells Target Cells Tear Drop Cells Ovalocytes Helmet Cells Patel-Branford Bodies [place] Cells Bite Cells Crenated Cell Elliptocytes Acanthocytes (Spur) Rouleaux Hemoglobin C Crystals Schistocytes Malaria parasites Hieu Bodies Hem Pathologist Commnt Sodium Potassium Chloride Carbon Dioxide Anion Gap BUN Creatinine Estimated GFR BUN/Creatinine Ratio Glucose POC Glucose 80 Hemoglobin A1c 5.7 Calcium Total Bilirubin AST ALT Alkaline Phosphatase Total Protein Albumin Albumin/Globulin Ratio Hepatitis A IgM Ab Non-reactive Hep Bs Antigen Non-reactive Hep B Core IgM Ab Non-reactive Hepatitis C Antibody Reactive A 08/17/20 08/17/20 08/17/20 04:25 04:25 07:51 WBC 3.3 L RBC 4.52 Hgb 10.9 L Hct 33.0 L MCV 73 L MCH 24 L MCHC 33 RDW 17.8 H Plt Count 147 Add Manual Diff Complete Total Counted 100 Seg Neuts % (Manual) 46.0 Band Neutrophils % 0 Lymphocytes % (Manual) 37.0 H Reactive Lymphs % (Man) 0 Monocytes % (Manual) 11.0 H Eosinophils % (Manual) 6.0 H Basophils % (Manual) 0 Metamyelocytes % 0 Myelocytes % 0 Promyelocytes % 0 Blast Cells % 0 Nucleated RBC % Not Reportable Seg Neutrophils # Man 1.5 L Band Neutrophils # 0.0 Lymphocytes # (Manual) 1.2 Abs React Lymphs (Man) 0.0 Monocytes # (Manual) 0.4 Eosinophils # (Manual) 0.2 Basophils # (Manual) 0.0 Metamyelocytes # 0.0 Myelocytes # 0.0 Promyelocytes # 0.0 Blast Cells # 0.0 WBC Morphology Not Reportable Hypersegmented Neuts Not Reportable Hyposegmented Neuts Not Reportable Hypogranular Neuts Not Reportable Smudge Cells Not Reportable Toxic Granulation Not Reportable Toxic Vacuolation Not Reportable Dohle Bodies Not Reportable Pelger-Huet Anomaly Not Reportable [place] Rods Not Reportable Platelet Estimate Consistent w auto Clumped Platelets Not Reportable Plt Clumps, EDTA Not Reportable Large Platelets Not Reportable Giant Platelets Not Reportable Platelet Satelliting Not Reportable Plt Morphology Comment Not Reportable RBC Morphology Not Reportable Dimorphic RBCs Not Reportable Polychromasia Not Reportable Hypochromasia Few Poikilocytosis Not Reportable Anisocytosis 1+ Microcytosis Not Reportable Macrocytosis Not Reportable Spherocytes Not Reportable Pappenheimer Bodies Not Reportable Sickle Cells Not Reportable Target Cells 1+ Tear Drop Cells Few Ovalocytes Few Helmet Cells Not Reportable Patel-Branford Bodies Not Reportable [place] Rings Not Reportable [place] Cells Not Reportable Bite Cells Not Reportable Crenated Cell Not Reportable Elliptocytes Not Reportable Acanthocytes (Spur) Not Reportable Rouleaux Not Reportable Hemoglobin C Crystals Not Reportable Schistocytes Few Malaria parasites Not Reportable Hieu Bodies Not Reportable Hem Pathologist Commnt No Sodium 141 Potassium 4.8 Chloride 99.8 Carbon Dioxide 32 H D Anion Gap 14 BUN 32 H Creatinine 4.9 H Estimated GFR 15 BUN/Creatinine Ratio 7 Glucose 99 POC Glucose 132 H Hemoglobin A1c Calcium 8.6 Total Bilirubin 0.30 AST 35 ALT 22 Alkaline Phosphatase 153 H Total Protein 7.3 Albumin 3.8 L Albumin/Globulin Ratio 1.1 Hepatitis A IgM Ab Hep Bs Antigen Hep B Core IgM Ab Hepatitis C Antibody 08/17/20 11:57 WBC RBC Hgb Hct MCV MCH MCHC RDW Plt Count Add Manual Diff Total Counted Seg Neuts % (Manual) Band Neutrophils % Lymphocytes % (Manual) Reactive Lymphs % (Man) Monocytes % (Manual) Eosinophils % (Manual) Basophils % (Manual) Metamyelocytes % Myelocytes % Promyelocytes % Blast Cells % Nucleated RBC % Seg Neutrophils # Man Band Neutrophils # Lymphocytes # (Manual) Abs React Lymphs (Man) Monocytes # (Manual) Eosinophils # (Manual) Basophils # (Manual) Metamyelocytes # Myelocytes # Promyelocytes # Blast Cells # WBC Morphology Hypersegmented Neuts Hyposegmented Neuts Hypogranular Neuts Smudge Cells Toxic Granulation Toxic Vacuolation Dohle Bodies Pelger-Huet Anomaly [place] Rods Platelet Estimate Clumped Platelets Plt Clumps, EDTA Large Platelets Giant Platelets Platelet Satelliting Plt Morphology Comment RBC Morphology Dimorphic RBCs Polychromasia Hypochromasia Poikilocytosis Anisocytosis Microcytosis Macrocytosis Spherocytes Pappenheimer Bodies Sickle Cells Target Cells Tear Drop Cells Ovalocytes Helmet Cells Patel-Branford Bodies [place] Rings [place] Cells Bite Cells Crenated Cell Elliptocytes Acanthocytes (Spur) Rouleaux Hemoglobin C Crystals Schistocytes Malaria parasites Hieu Bodies Hem Pathologist Commnt Sodium Potassium Chloride Carbon Dioxide Anion Gap BUN Creatinine Estimated GFR BUN/Creatinine Ratio Glucose POC Glucose 119 H Hemoglobin A1c Calcium Total Bilirubin AST ALT Alkaline Phosphatase Total Protein Albumin Albumin/Globulin Ratio Hepatitis A IgM Ab Hep Bs Antigen Hep B Core IgM Ab Hepatitis C Antibody Assessment and Plan # CBD dilation on imaging - s/p cholecystectomy in the past. - Labs notable for mild elevation of alk phos, unclear if due to renal osteodystrophy and chronic vs acute. - no signs of cholangitis. Rec - recommend outpatient work up with repeat labs and likely MRCP. - will sign off.
[2020-08-17 18:37] VITALS: BP 120/61
== END 2020-08-17 18:58 | disposition home or self-care (01) ==
LOC: ED 05:25 → 3A 14:15
PROVIDERS: ADMIT Internal Medicine; ATTEND Internal Medicine
DX: I16.0 Hypertensive urgency (principal); I12.0 Hypertensive chronic kidney disease with stage 5 chronic kidney disease or end stage renal disease; N18.6 End stage renal disease; E87.5 Hyperkalemia; E11.9 Type 2 diabetes mellitus without complications; F17.210 Nicotine dependence, cigarettes, uncomplicated; Z99.2 Dependence on renal dialysis; Z87.442 Personal history of urinary calculi; Z98.890 Other specified postprocedural states; Z91.14 Patient's other noncompliance with medication regimen
CPT/HCPCS: 36415; 74176; 80053; 80074; 81001; 82962; 83036; 85007; 85025; 93971; 96374; 96375; 99284; 99406; G0378; J2270

== ENCOUNTER 2020-09-07 12:54 | Observation (INO) | payer MEDICAID ==
[2020-09-07] MEDS ORDERED: ONDANSETRON 4 MG/2 ML INJ IV ONE (14:33)
[2020-09-07] MEDS ORDERED: MORPHINE 2 MG/1 ML INJ IV ONE (14:33)
--- NOTE | 2020-09-07 15:27 | XRay Report ---
CHEST 1 VIEW INDICATION / CLINICAL INFORMATION: hypertension. COMPARISON: None available. FINDINGS: SUPPORT DEVICES: None. HEART / MEDIASTINUM: No significant abnormality. LUNGS / PLEURA: No significant pulmonary or pleural abnormality. No pneumothorax. ADDITIONAL FINDINGS: No significant additional findings. IMPRESSION: No acute pulmonary or pleural abnormality Signer Name: Kedar Chaves MD FACR Signed: 09/07/2020 3:22 PM Workstation Name: [id number]
--- NOTE | 2020-09-07 15:27 | XRay Report ---
LEFT FEMUR 4 VIEWS INDICATION / CLINICAL INFORMATION: pain. COMPARISON: None available. FINDINGS: No significant skeletal abnormality Signer Name: Kedar Chaves MD FACR Signed: 09/07/2020 3:22 PM Workstation Name: [id number]
[2020-09-07 15:28] LABS: Hematocrit 35.1 % (35.5-45.6); Hemoglobin 11.3 gm/dl (11.8-15.2); Mean Corpuscular HGB Conc 32 % (32-34); Mean Corpuscular Volume 72 fl (84-94); Red Blood Count 4.89 M/mm3 (3.65-5.03); Red Cell Distribution Width 16.9 % (13.2-15.2)
[2020-09-07 15:37] LABS: INR 1.05 (0.87-1.13)
[2020-09-07 15:39] LABS: Partial Thromboplastin Time 28.8 Sec. (24.2-36.6)
[2020-09-07 15:51] LABS: Creatine Kinase MB 2.2 ng/mL (0.0-4.0)
[2020-09-07 15:52] LABS: Alanine Aminotransferase 13 units/L (7-56); Albumin 3.9 g/dL (3.9-5); Bilirubin,Direct < 0.2 mg/dL (0-0.2)
[2020-09-07 15:53] LABS: Calcium 8.6 mg/dL (8.4-10.2)
[2020-09-07 17:14] LABS: Anisocytosis Few; Basophils % (Manual) 0 % (0.0-1.8); Hypochromasia 1+; Ovalocytes Few; Tear Drop Cells Rare; Total Cells Counted 100
[2020-09-07 17:15] LABS: Target Cells Few
[2020-09-07 17:20] LABS: Platelet Estimate Consistent w Auto
--- NOTE | 2020-09-07 17:28 | Emergency Department Report ---
ED Chest Pain HPI - General Chief Complaint: Chest Pain Stated Complaint: CHEST PAIN Time Seen by Provider: 09/07/20 14:17 Source: patient Mode of arrival: Stretcher Limitations: No Limitations - History of Present Illness Initial Comments: This is a 65-year old hemodialysis patient with a history of hypertension. Patient gives a rather variable history of either subxiphoid all chest pain epigastric pain or no chest pain at all. In the time of my encounter he is just complaining of left leg pain which he states involves his groin all the way down to his knee. He was not complaining of chest pain. His leg has not been swollen. He is not complaining of shortness of breath. His blood pressure was 115/116 at triage. When asked if he was taking his blood pressure medicine he told me that he was not. He states he was dialyzed yesterday. That his blood pressure was lowered at dialysis and that is the reason why he was not sent to the emergency department yesterday. He does not explain why he is not taking his blood pressure medicine today. He does not report a history of coronary artery disease nor venous thromboembolism. The patient indicates to me that he is never had any problems with drugs, i.e. substance abuse. The record states history of cocaine abuse. He states that he is HIV negative. Reviewed patient's hospitalization July, apparently he had very similar complaints. I will place a nonurgent consultation to nephrology. Discharge summary in July: Hospitalization Condition: Fair Hospital course: This is a 65-year-old -[place] male with h/o HTN, DM, ESRD on HD TTS who presents to the emergency department via EMS from his personal long-term with a complaint of a 3-day history of left-sided abdominal pain and left leg pain, in the groin and calf. he patient missed his dialysis secondary to his current symptoms, and secondary to transportation issues. Patient was further evaluated with abdomen pelvis CT which showed 2 cm dilated common bile duct and no other acute events. His lower extremity Doppler was negative for any acute DVT. Nephrology was consulted and patient was dialyzed. Patient noted to be hyperkalemic on admission which resolved after getting dialysis. Patient was tolerating diet and did not show any nausea vomiting or diarrhea. Patient was then discharged home with outpatient follow-up in stable condition.. Discharge diagnosis: End-stage renal disease Hyperkalemia, resolved Hypertension, uncontrolled Diabetes mellitus type 2 Abdominal pain, resolved Disposition: DC- TO HOME OR SELFCARE MD Complaint: chest pain -: Gradual, hour(s) Onset: during rest Pain Location: epigastric Pain Radiation: other (Associated with left groin thigh pain) Severity scale (0 -10): 0 Quality: aching Consistency: constant Improves With: nothing Worsens With: nothing re: denies: nausea, vomting, diaphoresis Other Symptoms: denies: cough, fever, syncope Treatments Prior to Arrival: other (Noncompliance with blood pressure medicine) Aspirin use within the Past 7 Days: (0) No - Related Data Previous Rx's Medication Instructions Recorded Last Taken Type Aspirin EC [Halfprin EC] 81 mg PO QDAY #30 tablet.dr 08/17/20 Unknown Rx Famotidine [Pepcid] 20 mg PO QAM #30 tablet 08/17/20 Unknown Rx Valsartan [Diovan] 160 mg PO Q12HR #60 tablet 08/17/20 Unknown Rx amLODIPine 10 mg PO QDAY #30 tablet 08/17/20 Unknown Rx carvediloL [Coreg] 12.5 mg PO BID #60 tablet 08/17/20 Unknown Rx hydrALAZINE [Apresoline TAB] 100 mg PO TID #90 tab 08/17/20 Unknown Rx polyethylene glycoL 3350 [Miralax 17 gm PO QDAY powd.pack 08/17/20 Unknown Rx 3350] Allergies Allergy/AdvReac Type Severity Reaction Status Date / Time No Known Allergies Allergy Unverified 08/16/20 06:02 Heart Score - HEART Score History: Slightly suspicious EKG: Non-specific Age: 45-65 Risk factors: > 3 risk factors or hx of atherosclerotic disease Troponin: 1-3x normal limit HEART Score: 5 - Critical Actions Critical Actions: 4-6 pts:12-16.6% risk of adverse cardiac event. Should be admitted ED Review of Systems ROS: Stated complaint: CHEST PAIN Other details as noted in HPI Constitutional: other (States he has had a major weight loss) Eyes: denies: eye pain, eye discharge, vision change ENT: denies: ear pain, throat pain Respiratory: denies: cough, shortness of breath, wheezing Cardiovascular: chest pain. denies: palpitations Endocrine: no symptoms reported Gastrointestinal: denies: abdominal pain, nausea, diarrhea Genitourinary: denies: urgency, dysuria Musculoskeletal: as per HPI. denies: back pain, joint swelling, arthralgia Skin: denies: rash, lesions Neurological: denies: headache, weakness, paresthesias Psychiatric: denies: anxiety, depression Hematological/Lymphatic: denies: easy bleeding, easy bruising ED Past Medical Hx - Past Medical History Previous Medical History?: Yes Hx Hypertension: Yes Hx Congestive Heart Failure: No Hx Diabetes: Yes Hx Kidney Stones: Yes (Dialysis Tues,Thurs,Sat) Hx Asthma: No Hx COPD: No - Surgical History Past Surgical History?: No Additional Surgical History: Wrist, right arm, Hip - Social History Smoking Status: Current Every Day Smoker Substance Use Type: Cocaine - Medications Home Medications: Home Medications Medication Instructions Recorded Confirmed Last Taken Type Aspirin EC [Halfprin EC] 81 mg PO QDAY #30 tablet.dr 08/17/20 Unknown Rx Famotidine [Pepcid] 20 mg PO QAM #30 tablet 08/17/20 Unknown Rx Valsartan [Diovan] 160 mg PO Q12HR #60 tablet 08/17/20 Unknown Rx amLODIPine 10 mg PO QDAY #30 tablet 08/17/20 Unknown Rx carvediloL [Coreg] 12.5 mg PO BID #60 tablet 08/17/20 Unknown Rx hydrALAZINE [Apresoline TAB] 100 mg PO TID #90 tab 08/17/20 Unknown Rx polyethylene glycoL 3350 [Miralax 17 gm PO QDAY powd.pack 08/17/20 Unknown Rx 3350] ED Physical Exam - General Limitations: No Limitations General appearance: alert, in no apparent distress - Head Head exam: Present: atraumatic, normocephalic - Eye Eye exam: Present: normal appearance. Absent: scleral icterus - ENT ENT exam: Present: mucous membranes moist - Neck Neck exam: Present: normal inspection - Respiratory Respiratory exam: Present: normal lung sounds bilaterally. Absent: respiratory distress - Cardiovascular Cardiovascular Exam: Present: regular rate, normal rhythm. Absent: systolic murmur, diastolic murmur, rubs, gallop - GI/Abdominal GI/Abdominal exam: Present: soft, normal bowel sounds, other (Left groin without hernia mass primary or apparent adenopathy). Absent: distended, tenderness, guarding, rebound, rigid - Rectal Rectal exam: Present: deferred - Extremities Exam Extremities exam: Present: normal inspection, full ROM, normal capillary refill. Absent: calf tenderness - Back Exam Back exam: Present: normal inspection - Neurological Exam Neurological exam: Present: alert, oriented X3, CN II-XII intact. Absent: motor sensory deficit - Psychiatric Psychiatric exam: Present: agitated, anxious - Skin Skin exam: Present: warm, dry, intact, normal color. Absent: rash ED Course Vital Signs 09/07/20 09/07/20 09/07/20 13:33 13:35 13:45 Temperature 98.6 F Pulse Rate 100 H 97 H 92 H Respiratory 46 H 20 14 Rate Blood Pressure 215/116 Blood Pressure 215/116 [Right] O2 Sat by Pulse 100 100 Oximetry 09/07/20 09/07/20 09/07/20 14:01 14:31 14:45 Temperature Pulse Rate 88 91 H 90 Respiratory 17 12 14 Rate Blood Pressure 213/100 215/98 227/114 Blood Pressure [Right] O2 Sat by Pulse 97 96 98 Oximetry 09/07/20 09/07/20 09/07/20 15:01 15:15 15:31 Temperature Pulse Rate 77 77 76 Respiratory 11 L 14 11 L Rate Blood Pressure 208/94 211/106 215/97 Blood Pressure [Right] O2 Sat by Pulse 98 97 97 Oximetry 09/07/20 09/07/20 09/07/20 15:45 16:01 16:15 Temperature Pulse Rate 74 74 78 Respiratory 12 11 L 11 L Rate Blood Pressure 200/93 214/103 218/102 Blood Pressure [Right] O2 Sat by Pulse 98 98 99 Oximetry 09/07/20 09/07/20 09/07/20 16:31 16:45 17:01 Temperature Pulse Rate 80 79 80 Respiratory 11 L 14 12 Rate Blood Pressure 218/102 192/99 208/104 Blood Pressure [Right] O2 Sat by Pulse 97 95 96 Oximetry - Reevaluation(s) Reevaluation #1: Patient has a strange pattern of noncompliance. Substance abuse may be present. His blood pressure did not respond much to 2 rounds of labetalol. Nitropaste was ordered. He was referred to the hospitalist for further evaluation of his chest pain, accelerated hypertension, etc. he does have a mildly elevated potassium. He will be given Kayexalate. He has a pancytopenia with platelet count lower than prior. Perhaps HIV should be excluded. Further evaluation per hospitalist staff. 09/07/20 17:36 LEN score - Len Score Age > 65: (0) No Aspirin use within the Past 7 Days: (1) Yes 3 or more CAD Risk Factors: (1) Yes 2 or more Angina events in past 24 hrs: (0) No Known CAD with more than 50% Stenosis: (0) No Elevated Cardiac Markers: (0) No ST Deviation Greater than 0.5mm: (0) No LEN Score: 2 ED Medical Decision Making - Lab Data Result diagrams: 09/07/20 15:13 09/07/20 15:13 Laboratory Results - last 24 hr 09/07/20 09/07/20 09/07/20 15:13 15:13 15:13 WBC 3.2 L RBC 4.89 Hgb 11.3 L Hct 35.1 L MCV 72 L MCH 23 L MCHC 32 RDW 16.9 H Plt Count 94 L Add Manual Diff Complete Total Counted 100 Seg Neuts % (Manual) 64.0 Band Neutrophils % 0 Lymphocytes % (Manual) 28.0 Reactive Lymphs % (Man) 0 Monocytes % (Manual) 6.0 Eosinophils % (Manual) 2.0 Basophils % (Manual) 0 Metamyelocytes % 0 Myelocytes % 0 Promyelocytes % 0 Blast Cells % 0 Nucleated RBC % Not Reportable Seg Neutrophils # Man 2.0 Band Neutrophils # 0.0 Lymphocytes # (Manual) 0.9 L Abs React Lymphs (Man) 0.0 Monocytes # (Manual) 0.2 Eosinophils # (Manual) 0.1 Basophils # (Manual) 0.0 Metamyelocytes # 0.0 Myelocytes # 0.0 Promyelocytes # 0.0 Blast Cells # 0.0 WBC Morphology Not Reportable Hypersegmented Neuts Not Reportable Hyposegmented Neuts Not Reportable Hypogranular Neuts Not Reportable Smudge Cells Not Reportable Toxic Granulation Not Reportable Toxic Vacuolation Not Reportable Dohle Bodies Not Reportable Pelger-Huet Anomaly Not Reportable [place] Rods Not Reportable Platelet Estimate Consistent w auto Clumped Platelets Not Reportable Plt Clumps, EDTA Not Reportable Large Platelets Not Reportable Giant Platelets Not Reportable Platelet Satelliting Not Reportable Plt Morphology Comment Not Reportable RBC Morphology Not Reportable Dimorphic RBCs Not Reportable Polychromasia Not Reportable Hypochromasia 1+ Poikilocytosis Not Reportable Anisocytosis Few Microcytosis Not Reportable Macrocytosis Not Reportable Spherocytes Not Reportable Pappenheimer Bodies Not Reportable Sickle Cells Not Reportable Target Cells Few Tear Drop Cells Rare Ovalocytes Few Helmet Cells Not Reportable Pat[place] Bodies Not Reportable Alexis Rings Not Reportable [place] Cells Not Reportable Bite Cells Not Reportable Crenated Cell Not Reportable Elliptocytes Not Reportable Acanthocytes (Spur) Not Reportable Rouleaux Not Reportable Hemoglobin C Crystals Not Reportable Schistocytes Not Reportable Malaria parasites Not Reportable Hieu Bodies Not Reportable Hem Pathologist Commnt No PT 13.6 INR 1.05 APTT 28.8 D-Dimer 598.69 H Sodium 138 Potassium 5.2 H Chloride 100.9 Carbon Dioxide 23 Anion Gap 19 BUN 30 H Creatinine 5.7 H Estimated GFR 12 BUN/Creatinine Ratio 5 Glucose 85 Lactic Acid Calcium 8.6 Magnesium Total Bilirubin Direct Bilirubin Indirect Bilirubin AST ALT Alkaline Phosphatase Total Creatine Kinase 211 H CK-MB (CK-2) 2.2 CK-MB (CK-2) Rel Index 1.0 Troponin T NT-Pro-B Natriuret Pep Total Protein Albumin Albumin/Globulin Ratio 09/07/20 09/07/20 15:13 15:13 WBC RBC Hgb Hct MCV MCH MCHC RDW Plt Count Add Manual Diff Total Counted Seg Neuts % (Manual) Band Neutrophils % Lymphocytes % (Manual) Reactive Lymphs % (Man) Monocytes % (Manual) Eosinophils % (Manual) Basophils % (Manual) Metamyelocytes % Myelocytes % Promyelocytes % Blast Cells % Nucleated RBC % Seg Neutrophils # Man Band Neutrophils # Lymphocytes # (Manual) Abs React Lymphs (Man) Monocytes # (Manual) Eosinophils # (Manual) Basophils # (Manual) Metamyelocytes # Myelocytes # Promyelocytes # Blast Cells # WBC Morphology Hypersegmented Neuts Hyposegmented Neuts Hypogranular Neuts Smudge Cells Toxic Granulation Toxic Vacuolation Dohle Bodies Pelger-Huet Anomaly [place] Rods Platelet Estimate Clumped Platelets Plt Clumps, EDTA Large Platelets Giant Platelets Platelet Satelliting Plt Morphology Comment RBC Morphology Dimorphic RBCs Polychromasia Hypochromasia Poikilocytosis Anisocytosis Microcytosis Macrocytosis Spherocytes Pappenheimer Bodies Sickle Cells Target Cells Tear Drop Cells Ovalocytes Helmet Cells Patel[place] Bodies Alexis Rings [place] Cells Bite Cells Crenated Cell Elliptocytes Acanthocytes (Spur) Rouleaux Hemoglobin C Crystals Schistocytes Malaria parasites Hieu Bodies Hem Pathologist Commnt PT INR APTT D-Dimer Sodium Potassium Chloride Carbon Dioxide Anion Gap BUN Creatinine Estimated GFR BUN/Creatinine Ratio Glucose Lactic Acid 1.30 Calcium Magnesium 2.10 Total Bilirubin 0.50 Direct Bilirubin < 0.2 Indirect Bilirubin 0.3 AST 26 ALT 13 Alkaline Phosphatase 113 Total Creatine Kinase CK-MB (CK-2) CK-MB (CK-2) Rel Index Troponin T 0.122 H* NT-Pro-B Natriuret Pep 7411 H Total Protein 7.4 Albumin 3.9 Albumin/Globulin Ratio 1.1 - EKG Data -: EKG Interpreted by Me EKG shows normal: sinus rhythm, axis, intervals, QRS complexes, ST-T waves - EKG Data Interpretation: no acute changes - Radiology Data Radiology results: report reviewed, image reviewed Chest x-ray and leg films no acute process. Doppler exam is pending. Critical care attestation.: If time is entered above; I have spent that time in minutes in the direct care of this critically ill patient, excluding procedure time. ED Disposition Clinical Impression: Hyperkalemia, Malignant hypertension, End stage renal disease on dialysis, Pancytopenia, Thrombocytopenia Chest pain Qualifiers: Chest pain type: unspecified Qualified Code(s): R07.9 - Chest pain, unspecified Disposition: OP ADMIT IP TO THIS HOSP Is pt being admited?: Yes Does the pt Need Aspirin: Yes Condition: Stable Instructions: Hypertension (ED), Chest Pain (ED) Referrals: PRIMARY CARE, [Primary Care Provider] - 3-5 Days Time of Disposition: 17:37
[2020-09-07 17:31] LABS: Platelet Count 94 K/mm3 (140-440)
[2020-09-07 17:35] LABS: Chol/HDL Ratio 2.68 %; HDL Cholesterol 57 mg/dL (40-59); LDL Cholesterol,Direct 81 mg/dL (50-130)
[2020-09-07] MEDS ORDERED: ASPIRIN 325 MG TAB PO ONE (17:37)
[2020-09-07] MEDS ORDERED: ASPIRIN 81 MG TAB CHEW PO ONE (17:38)
[2020-09-07] MEDS ORDERED: SODIUM POLYSTYRENE 15 GM/60 ML ORAL LIQD PO ONE (17:39)
--- NOTE | 2020-09-07 17:47 | Vascular Lab Report ---
DUPLEX DOPPLER LOWER EXTREMITY VEINS, LEFT INDICATION / CLINICAL INFORMATION: Left leg pain and elevated d-dimer. TECHNIQUE: Duplex doppler imaging was performed through the veins of the left lower extremity using venous compr ession and other maneuvers. COMPARISON: 08/16/2020. FINDINGS: LEFT COMMON FEMORAL VEIN: Negative. LEFT FEMORAL VEIN: Negative. LEFT POPLITEAL VEIN: Negative. LEFT CALF VEINS: Negative. ADDITIONAL FINDINGS: There is no evidence of a popliteal cyst or other significant abnormality. IMPRESSION: No sonographic evidence for DVT in the left lower extremity. Signer Name: Jacinto Irwin MD Signed: 09/07/2020 5:42 PM Workstation Name: [id number]
--- NOTE | 2020-09-07 18:08 | History and Physical Report ---
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 Patient states that he has experienced pain in his chest, arms, groin, leg, knee the and calf over the past 1 day. EMS was notified and the patient was subsequently transported to [facility] for further care and evaluation of the aforementioned symptoms. The patient was seen and evaluated in the emergency department. All lab and imaging studies reviewed. Patient found to have end-stage renal disease, accelerated hypertension, and noncardiac chest wall pain. Patient acknowledges noncompliance with outpatient antihypertensive therapy. Patient placed in observation status and admitted to medical floor. Nephrology team consulted in ED. Patient denies fever, chills, palpitations, productive cough, skin rash, recent ill contacts, or known exposure to COVID-19. Prior admission 08/16/2020 reviewed. All medication listed at time of admission has been reconciled. Cardiac enzymes, and EKG are normal and revealed no evidence of ischemia. Advanced care planning conducted in ED. Past History Past Medical History: diabetes, ESRD, hypertension, other (See HPI) Past Surgical History: Other (Dialysis access, hand, arm, and hip surgery) Social history: single, smoking Family history: diabetes, hypertension Medications and Allergies Allergies Allergy/AdvReac Type Severity Reaction Status Date / Time No Known Allergies Allergy Unverified 08/16/20 06:02 Home Medications Medication Instructions Recorded Confirmed Last Taken Type Aspirin EC [Halfprin EC] 81 mg PO QDAY #30 tablet. 08/17/20 09/07/20 Unknown Rx Famotidine [Pepcid] 20 mg PO QAM #30 tablet 08/17/20 09/07/20 Unknown Rx Valsartan [Diovan] 160 mg PO Q12HR #60 tablet 08/17/20 09/07/20 Unknown Rx amLODIPine 10 mg PO QDAY #30 tablet 08/17/20 09/07/20 Unknown Rx carvediloL [Coreg] 12.5 mg PO BID #60 tablet 08/17/20 09/07/20 Unknown Rx hydrALAZINE [Apresoline TAB] 100 mg PO TID #90 tab 08/17/20 09/07/20 Unknown Rx Review of Systems Constitutional: chronic pain, no weight loss, no weight gain Ears, nose, mouth and throat: no ear pain, no ear discharge, no tinnitis, no decreased hearing, no nasal congestion, no nasal discharge Cardiovascular: no orthopnea, no rapid/irregular heart beat, no syncope, no lightheadedness, no dyspnea on exertion, no claudication, no phlebitis, no high blood pressure Respiratory: no cough, no cough with sputum, no excessive sputum, no hemoptysis Gastrointestinal: no abdominal pain, no nausea, no vomiting, no diarrhea, no constipation Genitourinary Male: no hematuria, no flank pain, no urinary frequency, no urin betsy hesitancy Rectal: no pain, no incontinence, no bleeding Musculoskeletal: no neck stiffness, no neck pain, no shooting arm pain, no arm numbness/tingling Integumentary: no rash, no pruritis, no redness, no sores, no wounds Neurological: no head injury, no transient paralysis, no paralysis, no weakness, no parathesias, no numbness, no tingling Psychiatric: no anxiety, no memory loss, no change in sleep habits, no insomnia, no hypersomnia, no change in libido, no disorientation Endocrine: no cold intolerance, no heat intolerance, no polyphagia, no excessive thirst, no polydipsia Hematologic/Lymphatic: no easy bruising, no easy bleeding Allergic/Immunologic: no urticaria, no allergic rhinitis, no wheezing Exam - Constitutional Vitals: Temp Pulse Resp BP Pulse Ox 98.6 F 80 12 208/104 96 09/07/20 13:35 09/07/20 17:01 09/07/20 17:01 09/07/20 17:01 09/07/20 17:01 General appearance: Present: mild distress - EENT Eyes: Present: PERRL ENT: hearing intact, clear oral mucosa - Neck Neck: Present: supple, normal ROM - Respiratory Respiratory effort: normal Respiratory: bilateral: CTA - Cardiovascular Heart Sounds: Present: S1 & S2. Absent: rub, click - Extremities Extremities: pulses symmetrical, No edema Peripheral Pulses: within normal limits - Abdominal General gastrointestinal: Present: soft, non-tender, non-distended, normal bowel sounds Male genitourinary: Present: normal - Integumentary Integumentary: Present: clear, warm, dry - Musculoskeletal Musculoskeletal: gait normal, strength equal bilaterally - Psychiatric Psychiatric: appropriate mood/affect, intact judgment & insight - Neurologic Neurologic: CNII-XII intact, moves all extremities HEART Score - HEART Score EKG: Non-specific Age: 45-65 Risk factors: > 3 risk factors or hx of atherosclerotic disease Troponin: Troponin T 0.122 ng/mL (0.00-0.029) H* 09/07/20 15:13 Troponin: 1-3x normal limit - Critical Actions Critical Actions: 4-6 pts:12-16.6% risk of adverse cardiac event. Should be admitted Results - Labs CBC & Chem 7: 09/07/20 15:13 09/07/20 15:13 Labs: Abnormal lab results 09/07/20 09/07/20 09/07/20 Range/Units 15:13 15:13 15:13 WBC 3.2 L (4.5-11.0) K/mm3 Hgb 11.3 L (11.8-15.2) gm/dl Hct 35.1 L (35.5-45.6) % MCV 72 L (84-94) fl MCH 23 L (28-32) pg RDW 16.9 H (13.2-15.2) % Plt Count 94 L (140-440) K/mm3 Lymphocytes # (Manual) 0.9 L (1.2-5.4) K/mm3 D-Dimer 598.69 H (0-234) ng/mlDDU Potassium 5.2 H (3.6-5.0) mmol/L BUN 30 H (9-20) mg/dL Creatinine 5.7 H (0.8-1.3) mg/dL Total Creatine Kinase 211 H (55-170) units/L Troponin T (0.00-0.029) ng/mL NT-Pro-B Natriuret Pep (0-900) pg/mL 09/07/20 Range/Units 15:13 WBC (4.5-11.0) K/mm3 Hgb (11.8-15.2) gm/dl Hct (35.5-45.6) % MCV (84-94) fl MCH (28-32) pg RDW (13.2-15.2) % Plt Count (140-440) K/mm3 Lymphocytes # (Manual) (1.2-5.4) K/mm3 D-Dimer (0-234) ng/mlDDU Potassium (3.6-5.0) mmol/L BUN (9-20) mg/dL Creatinine (0.8-1.3) mg/dL Total Creatine Kinase (55-170) units/L Troponin T 0.122 H* (0.00-0.029) ng/mL NT-Pro-B Natriuret Pep 7411 H (0-900) pg/mL Assessment and Plan - Patient Problems (1) End stage renal disease Current Visit: Yes Status: Acute Plan to address problem: Nephrology team consulted in ED, strict I's/O, avoid nephrotoxic agents, dialysis as per renal team. (2) Chronic pain Current Visit: Yes Status: Acute Qualifiers: Chronic pain type: chronic pain syndrome Qualified Code(s): G89.4 - Chronic pain syndrome Plan to address problem: Pain control, supportive care. (3) Malignant hypertension Current Visit: Yes Status: Acute Plan to address problem: Monitor blood pressure every shift, continue medical management, resume prehospital antihypertensive therapy, urine drug screen. (4) Diabetes Current Visit: Yes Status: Acute Plan to address problem: Sliding-scale insulin therapy, Accu-Chek, consistent carbohydrate diet, hypoglycemia protocol (5) Nicotine dependence Current Visit: Yes Status: Acute Qualifiers: Nicotine product type: cigarettes Substance use status: in withdrawal Qualified Code(s): F17.213 - Nicotine dependence, cigarettes, with withdrawal Plan to address problem: Supportive care, nicotine cessation counseling, behavior change counseling, +15 minutes (6) DVT prophylaxis Current Visit: No Status: Acute Plan to address problem: SCD to bilateral lower extremities while in bed, patient is ambulatory (7) Advance care planning Current Visit: Yes Status: Acute Plan to address problem: Disease education conducted, prognosis discussed, care plan discussed, patient is full code, patient knowledges understanding and agreement with care plan.
[2020-09-07] MEDS ORDERED: ALUM-MAG HYDROXIDE-SIMETHICONE 200-200-20MG/5ML ORAL LIQD 30 ML PO PRN (18:11)
[2020-09-07] MEDS ORDERED: ONDANSETRON 4 MG/2 ML INJ IV PRN (18:11)
[2020-09-07] MEDS ORDERED: ALBUTEROL 2.5 MG/3 ML NEBU IH PRN (18:11)
[2020-09-07] MEDS ORDERED: ACETAMINOPHEN 325 MG TAB PO PRN (18:11)
[2020-09-07] MEDS: FAMOTIDINE 20 MG TAB PO SCH (21:33)
[2020-09-07] MEDS: VALSARTAN 160MG TAB PO SCH (21:33)
[2020-09-07] MEDS: hydrALAZINE 100 MG TAB PO SCH (21:34)
[2020-09-07] MEDS: amLODIPine 10 MG TAB PO SCH (21:48)
[2020-09-07] MEDS: carvediloL 12.5 MG TAB PO SCH (23:24)
[2020-09-08] MEDS: hydrALAZINE 100 MG TAB PO SCH ×3 (08:11→16:38)
[2020-09-08] MEDS ORDERED: SODIUM CHLORIDE 0.9% 100 ML IV PRN (09:17)
[2020-09-08] MEDS ORDERED: ASPIRIN EC 81 MG TAB PO SCH (10:00)
[2020-09-08] MEDS ORDERED: oxyCODONE /ACETAMINOPHEN 5-325MG TAB PO PRN (11:09)
[2020-09-08] MEDS: FAMOTIDINE 20 MG TAB PO SCH (13:07)
[2020-09-08] MEDS: carvediloL 12.5 MG TAB PO SCH (13:07)
[2020-09-08] MEDS: amLODIPine 10 MG TAB PO SCH (13:07)
[2020-09-08] MEDS: VALSARTAN 160MG TAB PO SCH (13:07)
[2020-09-08] MEDS ORDERED: GABAPENTIN 300 MG CAP PO SCH (14:00)
--- NOTE | 2020-09-08 16:01 | Consultation ---
History of Present Illness - Reason for Consult Consult date: 09/08/20 end stage renal disease - History of Present Illness This is a 65 year-old man with ESRD who presents for chest pain Patient usually dialyzes // at [facility], does not know his primary forms analyst, states that he just started there. Last HD 09/06. Denies any recent issues with HD, including dizziness, lightheadedness, cramping, chest pain on HD. Has been having this chest pain and weakness for past two days now since his last HD treatment Currently, patient denies any issues including dyspnea, edema, access issues, nausea, vomiting, headaches. Past History Past Medical History: diabetes, ESRD, hypertension, other (See HPI) Past Surgical History: Other (Dialysis access, hand, arm, and hip surgery) Social history: single, smoking Family history: diabetes, hypertension Medications and Allergies Allergies Allergy/AdvReac Type Severity Reaction Status Date / Time No Known Allergies Allergy Unverified 08/16/20 06:02 Home Medications Medication Instructions Recorded Confirmed Last Taken Type Aspirin EC [Halfprin EC] 81 mg PO QDAY #30 tablet. 08/17/20 09/07/20 Unknown Rx Famotidine [Pepcid] 20 mg PO QAM #30 tablet 08/17/20 09/07/20 Unknown Rx Valsartan [Diovan] 160 mg PO Q12HR #60 tablet 08/17/20 09/07/20 Unknown Rx amLODIPine 10 mg PO QDAY #30 tablet 08/17/20 09/07/20 Unknown Rx carvediloL [Coreg] 12.5 mg PO BID #60 tablet 08/17/20 09/07/20 Unknown Rx hydrALAZINE [Apresoline TAB] 100 mg PO TID #90 tab 08/17/20 09/07/20 Unknown Rx oxyCODONE /ACETAMINOPHEN [Percocet 1 tab PO Q6HR PRN 09/08/20 09/08/20 Unknown History /325] Active Meds: Active Medications Acetaminophen (Tylenol) 650 mg PO Q4H PRN PRN Reason: Pain MILD(1-3)/Fever >100.5/[place] Last Admin: 09/08/20 08:11 Dose: 650 mg Documented by: Al Hydrox/Mg Hydrox/Simethicone (Alum-Mag Hydrox-Simeth [phone]/5ml) 30 ml PO Q4H PRN PRN Reason: Indigestion Last Admin: 09/07/20 21:38 Dose: 30 ml Documented by: Albuterol (Proventil) 2.5 mg IH Q4HRT PRN PRN Reason: Shortness Of Breath Amlodipine Besylate (Amlodipine) 10 mg PO QDAY REPLACED BY [facility] Last Admin: 09/08/20 13:07 Dose: Not Given Documented by: Aspirin (Halfprin Ec) 81 mg PO QDAY REPLACED BY [facility] Last Admin: 09/08/20 13:07 Dose: Not Given Documented by: Carvedilol (Coreg) 12.5 mg PO BID REPLACED BY [facility] Last Admin: 09/08/20 13:07 Dose: Not Given Documented by: Famotidine (Pepcid) 20 mg PO QDAY REPLACED BY [facility] Last Admin: 09/08/20 13:07 Dose: Not Given Documented by: Gabapentin (Gabapentin 300 Mg Cap) 900 mg PO TID REPLACED BY [facility] Last Admin: 09/08/20 13:11 Dose: 900 mg Documented by: Hydralazine HCl (Apresoline) 100 mg PO TID REPLACED BY [facility] Last Admin: 09/08/20 13:12 Dose: Not Given Documented by: Sodium Chloride (Nacl 0.9%) 100 mls @ 999 mls/hr IV CHRISTEN PRN PRN Reason: Hypotension Ondansetron HCl (Zofran) 4 mg IV Q8H PRN PRN Reason: Nausea And Vomiting Last Admin: 09/08/20 10:03 Dose: 4 mg Documented by: Oxycodone/Acetaminophen (Oxycodone /Acetaminophen 5-325mg Tab) 1 tab PO Q6H PRN PRN Reason: Pain, Moderate (4-6) Last Admin: 09/08/20 13:10 Dose: 1 tab Documented by: Sodium Chloride (Sodium Chloride Flush Syringe 10 Ml) 10 ml IV BID REPLACED BY [facility] Last Admin: 09/08/20 13:07 Dose: Not Given Documented by: Sodium Chloride (Sodium Chloride Flush Syringe 10 Ml) 10 ml IV PRN PRN PRN Reason: LINE FLUSH Last Admin: 09/07/20 23:26 Dose: 10 ml Documented by: Valsartan (Diovan) 160 mg PO Q12HR REPLACED BY [facility] Last Admin: 09/08/20 13:07 Dose: Not Given Documented by: Review of Systems All systems: negative (as per HPI) Exam - Vital Signs Vital signs: Vital Signs Pulse Resp 100 H 46 H 09/07/20 13:33 09/07/20 13:33 - Physical Exam Narrative exam: Constitutional: no acute distress Head: NC/AT Neck: supple Lungs: clear to auscultation CV: RRR, no M/R/G Abdomen: soft, non-tender, bowel sounds present Back: nontender Extremities: no edema, pulses WNL Skin: intact Neuro: no focal deficits, alert and oriented x4 Results - Lab Results 09/07/20 15:13 09/08/20 04:00 Most recent lab results Calcium 8.0 mg/dL (8.4-10.2) L 09/08/20 04:00 Magnesium 2.10 mg/dL (1.7-2.3) 09/07/20 15:13 Assessment and Plan This is a 65 year old man who presents with chest pain. # ESRD: HD today for lyte, volume control. Continue HD // or prn based on labs, volume - daily labs - renally dose meds - avoid nephrotoxins - renal diet # Anemia: last hemoglobin 11.3, no indication for ESAs acutely # HTN: UF as tolerated. BP initially high with hypertensive urgency likely from medication non-compliance, now improved # Secondary Hyperparathyroidism: continue home binders as needed # DM: care per primary # Chest Pain: management per primary
[2020-09-08 17:13] VITALS: BP 166/81
== END 2020-09-08 17:25 | disposition home or self-care (01) ==
LOC: ED 12:54 → 3A 18:11 → 4A 21:12
PROVIDERS: ADMIT Internal Medicine; ATTEND Internal Medicine
DX: I12.0 Hypertensive chronic kidney disease with stage 5 chronic kidney disease or end stage renal disease (principal); E11.22 Type 2 diabetes mellitus with diabetic chronic kidney disease; N18.6 End stage renal disease; G89.4 Chronic pain syndrome; D64.9 Anemia, unspecified; N25.81 Secondary hyperparathyroidism of renal origin; R07.89 Other chest pain; E87.5 Hyperkalemia; D61.818 Other pancytopenia; D69.6 Thrombocytopenia, unspecified; F17.213 Nicotine dependence, cigarettes, with withdrawal; Z99.2 Dependence on renal dialysis; Z79.82 Long term (current) use of aspirin; Z79.899 Other long term (current) drug therapy
CPT/HCPCS: 36415; 71045; 73552; 80048; 80061; 80076; 82140; 82550; 82553; 83735; 83880; 84484; 85025; 85379; 85610; 85730; 93005; 93971; 96374; 96375; 96376; 99285; G0257; G0378; J2270; J2405; 85007

== ENCOUNTER 2020-10-30 12:28 | Emergency (ER) | payer MEDICAID ==
[2020-10-30] MEDS ORDERED: ASPIRIN 325 MG TAB PO ONE (12:52)
--- NOTE | 2020-10-30 13:08 | Emergency Department Report ---
Blank Doc - Documentation Documentation: 65-year-old male that presents with chest pain and SOB. 1- This initial assessment/diagnostic orders/clinical plan/ treatment(s) is/are subject to change based on pt's health status, clinical progression and re- assessment by fellow clinical providers in the ED. Further treatment and workup at subsequent clinical provers discretion. Patient/guardians urged not to elope from ED as their condition may be serious if not clinically assessed and managed. 2-cardiac work up
[2020-10-30 13:54] LABS: Hematocrit 31.1 % (35.5-45.6); Hemoglobin 9.9 gm/dl (11.8-15.2); Red Blood Count 4.15 M/mm3 (3.65-5.03)
[2020-10-30 13:55] LABS: Basophils % (Auto) 0.7 % (0.0-1.8); Eosinophils # (Auto) 0.1 K/mm3 (0.0-0.4); Lymphocytes # (Auto) 1.1 K/mm3 (1.2-5.4); Mean Corpuscular HGB Conc 32 % (32-34); Mean Corpuscular Volume 75 fl (84-94); Monocytes # (Auto) 0.4 K/mm3 (0.0-0.8); Monocytes % (Auto) 11.4 % (0.0-7.3); Platelet Count 166 K/mm3 (140-440); Red Cell Distribution Width 25.2 % (13.2-15.2)
[2020-10-30 13:59] LABS: INR 1.11 (0.87-1.13)
[2020-10-30 14:00] LABS: Partial Thromboplastin Time 29.8 Sec. (24.2-36.6)
[2020-10-30 14:03] LABS: Albumin 4.3 g/dL (3.9-5); Calcium 9.1 mg/dL (8.4-10.2)
[2020-10-30 14:25] LABS: Chol/HDL Ratio 2.4 %
--- NOTE | 2020-10-30 14:30 | XRay Report ---
CHEST 1 VIEW INDICATION / CLINICAL INFORMATION: Chest Pain. COMPARISON: 09/21/2020 FINDINGS: SUPPORT DEVICES: None. HEART / MEDIASTINUM: No significant abnormality. LUNGS / PLEURA: No significant pulmonary or pleural abnormality. No pneumothorax. ADDITIONAL FINDINGS: No significant additional findings. IMPRESSION: No acute disease or interval change from 09/21/2020 Signer Name: Kedar Chaves MD FACR Signed: 10/30/2020 2:26 PM Workstation Name: [id number]
[2020-10-30 17:09] VITALS: BP 128/65
--- NOTE | 2020-10-30 18:12 | Emergency Department Report ---
ED Chest Pain HPI - General Chief Complaint: Chest Pain Stated Complaint: CHEST PAIN PUI?: No Time Seen by Provider: 10/30/20 13:07 Source: patient, EMS Mode of arrival: Stretcher Limitations: No Limitations - History of Present Illness Initial Comments: Chief complaint: "I have been dealing with this for quite a while. Abdominal and chest pain." HPI: This is a 65-year-old male with history of diabetes mellitus, hepatitis C, gastritis, end-stage renal disease on hemodialysis who presents with double lower abdominal pain radiating to the chest. He has had this pain for several months. He also explains that he has no one to help him at home. His brother has medical problems. He does not have any family to help him with his physical limitations. He has been depressed. Denies suicidal homicidal ideation. According to electronic medical record patient had cardiac stress test September 22, 2020. Negative Lexiscan EKG. Normal rest and stress myocardial perfusion scan. No significant ischemia. No wall motion abnormality. Ejection fraction 55%. CT angiogram of the chest abdomen pelvis obtained on September 21, 2024 sharp tearing chest pain radiating to the abdomen groin: No acute abnormality identified, patient had moderate atherosclerotic disease in the coronary arteries and aorta, patient also had moderate emphysematous changes in the lungs. Patient had extensive GI evaluation including MRCP without specific obstructive lesion. GI recommended ERCP EUS on outpatient nonurgent basis. MD Complaint: chest pain -: Gradual, days(s) (2) Onset: during rest Pain Location: substernal Severity: mild Severity scale (0 -10): 6 Quality: other (Burning sensation) Consistency: constant Improves With: nothing Worsens With: nothing - Related Data Previous Rx's Medication Instructions Recorded Last Taken Type Famotidine [Pepcid] 20 mg PO QAM #30 tablet 08/17/20 Unknown Rx Aspirin EC [Halfprin EC] 81 mg PO QDAY #30 tablet. 09/25/20 Unknown Rx Pantoprazole [Protonix TAB] 40 mg PO QDAY #30 tablet 09/25/20 Unknown Rx Valsartan [Diovan] 160 mg PO DAILY tablet 09/25/20 Unknown Rx Valsartan [Diovan] 160 mg PO Q12HR #60 tablet 09/25/20 Unknown Rx amLODIPine 10 mg PO QDAY #30 tablet 09/25/20 Unknown Rx carvediloL [Coreg] 12.5 mg PO BID #60 tablet 09/25/20 Unknown Rx hydrALAZINE [Apresoline TAB] 100 mg PO TID #90 tab 09/25/20 Unknown Rx oxyCODONE /ACETAMINOPHEN [Percocet 1 tab PO Q6HR PRN #10 09/25/20 Unknown Rx 5/325 mg] Allergies Allergy/AdvReac Type Severity Reaction Status Date / Time No Known Allergies Allergy Verified 09/21/20 17:47 Heart Score - HEART Score History: Slightly suspicious EKG: Non-specific Age: 45-65 Risk factors: 1-2 risk factors Troponin: < normal limit HEART Score: 3 ED Review of Systems ROS: Stated complaint: CHEST PAIN Other details as noted in HPI Comment: All other systems reviewed and negative Constitutional: denies: fever, malaise Respiratory: shortness of breath. denies: cough Cardiovascular: chest pain Gastrointestinal: denies: abdominal pain, nausea, vomiting Psychiatric: depression, suicidal thoughts ED Past Medical Hx - Past Medical History Previous Medical History?: Yes Hx Hypertension: Yes Hx Congestive Heart Failure: No Hx Diabetes: Yes Hx Kidney Stones: Yes (Dialysis Tues,Thurs,Sat) Hx Asthma: No Hx COPD: No - Surgical History Past Surgical History?: Yes Additional Surgical History: Wrist, right arm, Hip - Social History Smoking Status: Never Smoker Substance Use Type: Prescribed - Medications Home Medications: Home Medications Medication Instructions Recorded Confirmed Last Taken Type Famotidine [Pepcid] 20 mg PO QAM #30 tablet 08/17/20 09/22/20 Unknown Rx Aspirin EC [Halfprin EC] 81 mg PO QDAY #30 tablet. 09/25/20 Unknown Rx Pantoprazole [Protonix TAB] 40 mg PO QDAY #30 tablet 09/25/20 Unknown Rx Valsartan [Diovan] 160 mg PO DAILY tablet 09/25/20 Unknown Rx Valsartan [Diovan] 160 mg PO Q12HR #60 tablet 09/25/20 Unknown Rx amLODIPine 10 mg PO QDAY #30 tablet 09/25/20 Unknown Rx carvediloL [Coreg] 12.5 mg PO BID #60 tablet 09/25/20 Unknown Rx hydrALAZINE [Apresoline TAB] 100 mg PO TID #90 tab 09/25/20 Unknown Rx oxyCODONE /ACETAMINOPHEN [Percocet 1 tab PO Q6HR PRN #10 09/25/20 Unknown Rx 5/325 mg] ED Physical Exam - General Limitations: No Limitations General appearance: alert, in no apparent distress - Head Head exam: Present: atraumatic, normocephalic - Eye Eye exam: Present: normal appearance - ENT ENT exam: Present: mucous membranes moist - Neck Neck exam: Present: normal inspection, full ROM - Respiratory Respiratory exam: Present: normal lung sounds bilaterally. Absent: respiratory distress, wheezes, rales, rhonchi - Cardiovascular Cardiovascular Exam: Present: regular rate, normal rhythm, normal heart sounds. Absent: systolic murmur, diastolic murmur, rubs, gallop - GI/Abdominal GI/Abdominal exam: Present: soft, normal bowel sounds. Absent: distended, tenderness, guarding, rebound - Rectal Rectal exam: Present: deferred - Extremities Exam Extremities exam: Present: normal inspection - Neurological Exam Neurological exam: Present: alert, oriented X3 - Psychiatric Psychiatric exam: Present: normal affect, normal mood - Skin Skin exam: Present: warm, dry, intact, normal color. Absent: rash ED Course Vital Signs 10/30/20 10/30/20 12:47 17:09 Temperature 98.7 F Pulse Rate 75 73 Respiratory 18 16 Rate Blood Pressure 119/57 Blood Pressure 128/65 [Right] O2 Sat by Pulse 98 100 Oximetry LEN score - Len Score Age > 65: (0) No Aspirin use within the Past 7 Days: (1) Yes 3 or more CAD Risk Factors: (1) Yes 2 or more Angina events in past 24 hrs: (0) No Known CAD with more than 50% Stenosis: (0) No Elevated Cardiac Markers: (0) No ST Deviation Greater than 0.5mm: (0) No LEN Score: 2 ED Medical Decision Making - Lab Data Result diagrams: 10/30/20 13:12 10/30/20 13:19 Laboratory Results - last 24 hr 10/30/20 10/30/20 10/30/20 13:12 13:12 13:19 WBC 3.6 L RBC 4.15 Hgb 9.9 L Hct 31.1 L MCV 75 L MCH 24 L MCHC 32 RDW 25.2 H Plt Count 166 Lymph % (Auto) 32.0 [place] % (Auto) 11.4 H Eos % (Auto) 3.0 Baso % (Auto) 0.7 Lymph # (Auto) 1.1 L [place] # (Auto) 0.4 Eos # (Auto) 0.1 Baso # (Auto) 0.0 Seg Neutrophils % 52.9 Seg Neutrophils # 1.9 PT 14.1 INR 1.11 APTT 29.8 Sodium Cancelled Potassium Cancelled Chloride Cancelled Carbon Dioxide Cancelled Anion Gap Cancelled BUN Cancelled Creatinine Cancelled Estimated GFR Cancelled BUN/Creatinine Ratio Cancelled Glucose Cancelled Calcium Cancelled Magnesium Total Bilirubin AST ALT Alkaline Phosphatase Troponin T 0.107 H* Total Protein Albumin Albumin/Globulin Ratio Triglycerides 99 Cholesterol 149 LDL Cholesterol Direct 84 HDL Cholesterol 62 H Cholesterol/HDL Ratio 2.40 10/30/20 10/30/20 13:19 15:55 WBC RBC Hgb Hct MCV MCH MCHC RDW Plt Count Lymph % (Auto) [place] % (Auto) Eos % (Auto) Baso % (Auto) Lymph # (Auto) [place] # (Auto) Eos # (Auto) Baso # (Auto) Seg Neutrophils % Seg Neutrophils # PT INR APTT Sodium 138 Potassium 4.2 Chloride 95.0 L Carbon Dioxide 30 Anion Gap 17 BUN 39 H Creatinine 6.0 H Estimated GFR 12 BUN/Creatinine Ratio 7 Glucose 108 H Calcium 9.1 Magnesium 2.40 H Total Bilirubin 0.40 AST 34 ALT 39 Alkaline Phosphatase 121 Troponin T 0.099 H Total Protein 7.1 Albumin 4.3 Albumin/Globulin Ratio 1.5 Triglycerides Cholesterol LDL Cholesterol Direct HDL Cholesterol Cholesterol/HDL Ratio - EKG Data -: EKG Interpreted by Nv EKG shows normal: sinus rhythm, axis, intervals, QRS complexes, ST-T waves Rate: normal - EKG Data 10/30/20 18:12 EKG obtained 1704 Normal sinus rhythm rate 70 bpm normal axis normal intervals no ST-T signs of ischemia - Radiology Data Radiology results: report reviewed, image reviewed Chest radiograph: No acute disease or interval change from 09/21/2020 - Medical Decision Making 1. Chest pain/abdominal pain: Atypical for ACS, heart score 3. Patient had extensive evaluation last month for chest pain including normal myocardial perf usion scan, CT angiogram of the chest abdomen pelvis without acute abnormality. Patient also has had extensive evaluation for abdominal pain. Outpatient EUS, ERCP recommended. Patient was prescribed twice daily PPI on most recent discharge. Downtrending troponin values x2. 2. End-stage renal disease on hemodialysis: Patient does not require emergent hemodialysis. Patient has been compliant with hemodialysis. Last hemodialysis session occurred on yesterday. 3. Patient requires outpatient resources for medical terminologist. I recommended that he speak with our senior case manager per phone during weekday and normal business hours. Patient stated that he was recently placed in a personal alf 1 month ago. He also has a new primary care physician. His new caregiver will help arrange outpatient medical care. After extensive evaluation, no indication of life limb or organ threatening condition which needs emergent treatment or evaluation. Critical care attestation.: If time is entered above; I have spent that time in minutes in the direct care of this critically ill patient, excluding procedure time. ED Disposition Clinical Impression: Chest pain, Abdominal pain, End stage renal disease on dialysis Disposition: DC- TO HOME OR SELFCARE Is pt being admited?: No Does the pt Need Aspirin: No Condition: Stable Instructions: Chest Pain (ED) Referrals: PRIMARY CARE, [Primary Care Provider] - 3-5 Days
[2020-10-30] MEDS ORDERED: oxyCODONE /ACETAMINOPHEN 5-325MG TAB PO ONE (18:43)
== END 2020-10-31 08:00 | disposition home or self-care (01) ==
LOC: ED 12:28
DX: R07.89 Other chest pain (principal); E11.22 Type 2 diabetes mellitus with diabetic chronic kidney disease; I12.0 Hypertensive chronic kidney disease with stage 5 chronic kidney disease or end stage renal disease; N18.6 End stage renal disease; Z99.2 Dependence on renal dialysis; Z79.82 Long term (current) use of aspirin; Z79.899 Other long term (current) drug therapy
CPT/HCPCS: 36415; 71045; 80053; 80061; 83735; 84484; 85025; 85610; 85730; 93005

== ENCOUNTER 2020-12-02 10:41 | Outpatient (CLI) | payer MEDICAID ==
--- NOTE | 2020-12-02 12:46 | XRay Report ---
LUMBOSACRAL SPINE 5 VIEWS INDICATION: BACK PAIN. COMPARISON: None. IMPRESSION: Normal alignment. No significant discogenic DJD or facet arthropathy. The oblique image s demonstrate wide patency of the neural foramen bilaterally. No acute osseous or soft tissue abnorma lity. Signer Name: Ge Bianchi Jr, MD Signed: 12/02/2020 12:42 PM Workstation Name: [id number]
== END 2020-12-02 10:42 | disposition home or self-care (01) ==
LOC: XRAY 10:41
PROVIDERS: ATTEND Physical Medicine & Rehabilitation
DX: M54.5 Low back pain (principal); M79.605 Pain in left leg
CPT/HCPCS: 72110

== ENCOUNTER 2020-12-19 17:56 | Emergency (ER) | payer MEDICAID ==
--- NOTE | 2020-12-19 20:42 | XRay Report ---
CHEST 2 VIEWS INDICATION / CLINICAL INFORMATION: Chest Pain. COMPARISON: 10/30/2020 FINDINGS: SUPPORT DEVICES: None. HEART / MEDIASTINUM: No significant abnormality. LUNGS / PLEURA: No significant pulmonary or pleural abnormality. No pneumothorax. ADDITIONAL FINDINGS: No significant additional findings. IMPRESSION: No significant abnormality or interval change from 10/30/2020 Signer Name: Kedar Chaves MD FACR Signed: 12/19/2020 8:38 PM Workstation Name: [id number]
--- NOTE | 2020-12-19 20:43 | XRay Report ---
ABDOMEN 2 VIEWS INDICATION / CLINICAL INFORMATION: Abdominal and Chest pain. COMPARISON: None available. FINDINGS: Moderate amount of fecal material throughout the colon. Surgical clips are seen in the right upper qu adrant. No evidence of obstruction or pneumoperitoneum. Signer Name: Kedar Chaves MD FACR Signed: 12/19/2020 8:38 PM Workstation Name: [id number]
--- NOTE | 2020-12-19 20:56 | Emergency Department Report ---
ED Chest Pain HPI - General Chief Complaint: Chest Pain Stated Complaint: CHEST PAIN/ABD PAIN Time Seen by Provider: 12/19/20 19:36 Source: patient, EMS Mode of arrival: Wheelchair Limitations: No Limitations - History of Present Illness Initial Comments: This is a 65-year-old -[place] male presents to the emergency department with complaint of some midsternal chest pain that radiates down to the left side of his abdomen and then down to the left leg. Overall the patient says that this has been going on for "a while." He says that it "went away and then recently came back again." The patient also says that he had some type of test done while at his personal residential and the results told him that he is "bleeding on the inside." The patient also says that he was told that he needs to follow-up with gastroenterology for a colonoscopy. This patient has a past medical history of hypertension, diabetes and is end-stage renal disease on hemodialysis on Saturday//Saturday. He is unable to given the name of his primary care physician or family law paralegal. The patient has been seen at this hospital multiple times for both chest and abdominal pains. Most notably the patient was admitted in August and had a full cardiac work-up including a stress test that was negative for any ischemia. The patient also was seen by gastroenterology at that time and was being evaluated for dilated bile and pancreatic ducts and is supposed to follow-up outpatient with gastroenterology for this as well. Patient denies any fever, shortness of breath, cough, lower extremity swelling, nausea, vomiting, diarrhea, constipation or diaphoresis. No recent travel or sick contacts at home. - Related Data Previous Rx's Medication Instructions Recorded Last Taken Type Famotidine [Pepcid] 20 mg PO QAM #30 tablet 08/17/20 Unknown Rx Aspirin EC [Halfprin EC] 81 mg PO QDAY #30 tablet. 09/25/20 Unknown Rx Valsartan [Diovan] 160 mg PO DAILY tablet 09/25/20 Unknown Rx Valsartan [Diovan] 160 mg PO Q12HR #60 tablet 09/25/20 Unknown Rx amLODIPine 10 mg PO QDAY #30 tablet 09/25/20 Unknown Rx carvediloL [Coreg] 12.5 mg PO BID #60 tablet 12/27/20 Unknown Rx hydrALAZINE [Apresoline TAB] 100 mg PO TID #90 tab 09/25/20 Unknown Rx oxyCODONE /ACETAMINOPHEN [Percocet 1 tab PO Q6HR PRN #10 09/25/20 Unknown Rx 5/325 mg] oxyCODONE /ACETAMINOPHEN [Percocet 1 tab PO Q6HR PRN #15 tablet 10/30/20 Unknown Rx 5/325] Docusate Sodium [Colace] 100 mg PO BID PRN #20 capsule 12/20/20 Unknown Rx Pantoprazole [Protonix TAB] 40 mg PO QDAY #30 tablet 12/20/20 Unknown Rx Allergies Allergy/AdvReac Type Severity Reaction Status Date / Time No Known Allergies Allergy Verified 12/19/20 17:58 Heart Score - HEART Score History: Slightly suspicious EKG: Non-specific Age: 45-65 Risk factors: 1-2 risk factors Troponin: 1-3x normal limit HEART Score: 4 - Critical Actions Critical Actions: 4-6 pts:12-16.6% risk of adverse cardiac event. Should be admitted ED Review of Systems ROS: Stated complaint: CHEST PAIN/ABD PAIN Other details as noted in HPI Comment: All other systems reviewed and negative Constitutional: denies: chills, fever Eyes: denies: eye pain, vision change ENT: denies: ear pain, throat pain Respiratory: denies: cough, shortness of breath Cardiovascular: chest pain. denies: palpitations Gastrointestinal: abdominal pain. denies: vomiting Genitourinary: denies: dysuria, discharge Musculoskeletal: denies: back pain, arthralgia Skin: denies: rash, lesions Neurological: denies: headache, weakness ED Past Medical Hx - Past Medical History Hx Hypertension: Yes Hx Congestive Heart Failure: No Hx Diabetes: Yes Hx Kidney Stones: Yes (Dialysis Tues,Th,Sat) Hx Asthma: No Hx COPD: No - Surgical History Additional Surgical History: Wrist, right arm, Hip - Social History Smoking Status: Never Smoker Substance Use Type: None - Medications Home Medications: Home Medications Medication Instructions Recorded Confirmed Last Taken Type Famotidine [Pepcid] 20 mg PO QAM #30 tablet 08/17/20 09/22/20 Unknown Rx Aspirin EC [Halfprin EC] 81 mg PO QDAY #30 09/25/20 Unknown Rx Valsartan [Diovan] 160 mg PO DAILY tablet 09/25/20 Unknown Rx Valsartan [Diovan] 160 mg PO Q12HR #60 tablet 09/25/20 Unknown Rx amLODIPine 10 mg PO QDAY #30 tablet 09/25/20 Unknown Rx carvediloL [Coreg] 12.5 mg PO BID #60 tablet 09/25/20 Unknown Rx hydrALAZINE [Apresoline TAB] 100 mg PO TID #90 tab 09/25/20 Unknown Rx oxyCODONE /ACETAMINOPHEN [Percocet 1 tab PO Q6HR PRN #10 09/25/20 Unknown Rx 5/325 mg] oxyCODONE /ACETAMINOPHEN [Percocet 1 tab PO Q6HR PRN #15 tablet 10/30/20 Unknown Rx 5/325] Docusate Sodium [Colace] 100 mg PO BID PRN #20 capsule 12/20/20 Unknown Rx Pantoprazole [Protonix TAB] 40 mg PO QDAY #30 tablet 12/20/20 Unknown Rx ED Physical Exam - General Limitations: No Limitations - Other Other exam information: GENERAL: The patient is well-developed well-nourished. HENT: Normocephalic. Atraumatic. Patient has moist mucous membranes. EYES: Extraocular motions are intact. NECK: Supple. Trachea is midline. CHEST/LUNGS: Clear to auscultation. There is no respiratory distress noted. HEART/CARDIOVASCULAR: Regular. There is no tachycardia. There is no murmur. ABDOMEN: Abdomen is soft. There is some mild epigastric and left upper quadrant abdominal tenderness to palpation. No guarding. Patient has normal bowel sounds. SKIN: Skin is warm and dry. NEURO: The patient is awake, alert, and oriented. The patient is cooperative. The patient has no focal neurologic deficits. Normal speech. MUSCULOSKELETAL: There is no tenderness or deformity. There is no limitation range of motion. ED Course Vital Signs 12/19/20 12/19/20 12/19/20 17:58 19:46 20:22 Temperature 98.4 F Pulse Rate 68 67 Respiratory 20 15 12 Rate Blood Pressure 132/64 149/69 O2 Sat by Pulse 97 97 Oximetry 12/19/20 12/19/20 12/19/20 20:30 20:46 21:00 Temperature Pulse Rate 66 64 67 Respiratory 11 L 10 L 15 Rate Blood Pressure 149/69 149/69 149/69 O2 Sat by Pulse 98 98 97 Oximetry 12/19/20 12/19/20 12/19/20 21:16 21:30 21:46 Temperature Pulse Rate 67 67 70 Respiratory 12 10 L 15 Rate Blood Pressure 159/71 159/71 159/71 O2 Sat by Pulse 98 98 98 Oximetry 12/19/20 12/19/20 12/19/20 22:00 22:16 22:30 Temperature Pulse Rate 65 65 64 Respiratory 10 L 11 L 11 L Rate Blood Pressure 159/71 157/72 157/72 O2 Sat by Pulse 97 98 97 Oximetry 12/19/20 12/19/20 12/19/20 22:57 23:01 23:15 Temperature Pulse Rate 64 62 Respiratory 12 11 L Rate Blood Pressure 159/71 157/72 161/78 O2 Sat by Pulse 99 99 97 Oximetry 12/19/20 12/19/20 12/20/20 23:31 23:45 00:01 Temperature Pulse Rate 62 63 61 Respiratory 10 L 10 L 12 Rate Blood Pressure 161/78 161/78 161/78 O2 Sat by Pulse 98 97 98 Oximetry 12/20/20 12/20/20 12/20/20 00:15 00:31 00:45 Temperature Pulse Rate 61 62 62 Respiratory 9 L 10 L 10 L Rate Blood Pressure 168/79 168/79 168/79 O2 Sat by Pulse 98 98 99 Oximetry - Consultations Consultation #1: 12/19/20 22:16 I spoke to the pig caster on-call, Dr. Garcia. I explained that the patient presents with what appears to be chronic chest and abdominal pains. I explained that his EKG is unchanged from previous and does not show any morphology consistent with ST elevation myocardial infarction. The patient does not appear to be in volume overload. I did explain that the patient has an elevated tropo clyde level of 0.110 and that this is consistent with previous visits. I also made Dr. Garcia aware that the patient had a negative stress test in August of last year. Given all this information, Dr. Garcia agrees that the patient is safe from a cardiology standpoint for discharge home with outpatient follow-up. CALVIN score - Calvin Score Age > 65: (0) No Aspirin use within the Past 7 Days: (0) No 3 or more CAD Risk Factors: (0) No 2 or more Angina events in past 24 hrs: (1) Yes Known CAD with more than 50% Stenosis: (0) No Elevated Cardiac Markers: (1) Yes ST Deviation Greater than 0.5mm: (0) No CALVIN Score: 2 ED Medical Decision Making - Lab Data Result diagrams: 12/19/20 20:28 12/19/20 20:28 Lab Results 12/19/20 12/19/20 12/19/20 Range/Units 20:28 20:28 20:28 WBC 3.4 L (4.5-11.0) K/mm3 RBC 4.82 (3.65-5.03) M/mm3 Hgb 11.4 L (11.8-15.2) gm/dl Hct 36.6 (35.5-45.6) % MCV 76 L (84-94) fl MCH 24 L (28-32) pg MCHC 31 L (32-34) % RDW 17.7 H (13.2-15.2) % Plt Count 114 L (140-440) K/mm3 Lymph % (Auto) 39.2 H (13.4-35.0) % Isabella % (Auto) 14.8 H (0.0-7.3) % Eos % (Auto) 5.7 H (0.0-4.3) % Baso % (Auto) 1.1 (0.0-1.8) % Lymph # (Auto) 1.3 (1.2-5.4) K/mm3 Isabella # (Auto) 0.5 (0.0-0.8) K/mm3 Eos # (Auto) 0.2 (0.0-0.4) K/mm3 Baso # (Auto) 0.0 (0.0-0.1) K/mm3 Seg Neutrophils % 39.2 L (40.0-70.0) % Seg Neutrophils # 1.3 L (1.8-7.7) K/mm3 PT 11.1 L (12.2-14.9) Sec. INR 0.82 L (0.87-1.13) APTT 24.5 (24.2-36.6) Sec. Sodium 134 L (137-145) mmol/L Potassium 5.2 H (3.6-5.0) mmol/L Chloride 94.3 L (98-107) mmol/L Carbon Dioxide 27 (22-30) mmol/L Anion Gap 18 mmol/L BUN 70 H (9-20) mg/dL Creatinine 8.9 H (0.8-1.3) mg/dL Estimated GFR 7 ml/min BUN/Creatinine Ratio 8 % Glucose 87 (75-100) mg/dL Calcium 8.9 (8.4-10.2) mg/dL Total Bilirubin 0.30 (0.1-1.2) mg/dL AST 31 (5-40) units/L ALT 24 (7-56) units/L Alkaline Phosphatase 116 (35-129) units/L Troponin T 0.110 H* (0.00-0.029) ng/mL Total Protein 7.0 (6.3-8.2) g/dL Albumin 4.1 (3.9-5) g/dL Albumin/Globulin Ratio 1.4 % Triglycerides 98 (2-149) mg/dL Cholesterol 138 (50-199) mg/dL LDL Cholesterol Direct 68 (50-130) mg/dL HDL Cholesterol 59 (40-59) mg/dL Cholesterol/HDL Ratio 2.33 % Lipase 63 H (13-60) units/L Urine Color (Yellow) Urine Turbidity (Clear) Urine pH (5.0-7.0) Ur Specific [place] (1.003-1.030) Urine Protein (Negative) mg/dL Urine Glucose (UA) (Negative) mg/dL Urine Ketones (Negative) mg/dL Urine Blood (Negative) Urine Nitrite (Negative) Urine Bilirubin (Negative) Urine Urobilinogen (<2.0) mg/dL Ur Leukocyte Esterase (Negative) Urine WBC (Auto) (0.0-6.0) /HPF Urine RBC (Auto) (0.0-6.0) /HPF U Epithel Cells (Auto) (0-13.0) /HPF 12/20/20 Range/Units 00:01 WBC (4.5-11.0) K/mm3 RBC (3.65-5.03) M/mm3 Hgb (11.8-15.2) gm/dl Hct (35.5-45.6) % MCV (84-94) fl MCH (28-32) pg MCHC (32-34) % RDW (13.2-15.2) % Plt Count (140-440) K/mm3 Lymph % (Auto) (13.4-35.0) % Isabella % (Auto) (0.0-7.3) % Eos % (Auto) (0.0-4.3) % Baso % (Auto) (0.0-1.8) % Lymph # (Auto) (1.2-5.4) K/mm3 Isabella # (Auto) (0.0-0.8) K/mm3 Eos # (Auto) (0.0-0.4) K/mm3 Baso # (Auto) (0.0-0.1) K/mm3 Seg Neutrophils % (40.0-70.0) % Seg Neutrophils # (1.8-7.7) K/mm3 PT (12.2-14.9) Sec. INR (0.87-1.13) APTT (24.2-36.6) Sec. Sodium (137-145) mmol/L Potassium (3.6-5.0) mmol/L Chloride (98-107) mmol/L Carbon Dioxide (22-30) mmol/L Anion Gap mmol/L BUN (9-20) mg/dL Creatinine (0.8-1.3) mg/dL Estimated GFR ml/min BUN/Creatinine Ratio % Glucose (75-100) mg/dL Calcium (8.4-10.2) mg/dL Total Bilirubin (0.1-1.2) mg/dL AST (5-40) units/L ALT (7-56) units/L Alkaline Phosphatase (35-129) units/L Troponin T (0.00-0.029) ng/mL Total Protein (6.3-8.2) g/dL Albumin (3.9-5) g/dL Albumin/Globulin Ratio % Triglycerides (2-149) mg/dL Cholesterol (50-199) mg/dL LDL Cholesterol Direct (50-130) mg/dL HDL Cholesterol (40-59) mg/dL Cholesterol/HDL Ratio % Lipase (13-60) units/L Urine Color Straw (Yellow) Urine Turbidity Clear (Clear) Urine pH 8.0 H (5.0-7.0) Ur Specific [place] 1.009 (1.003-1.030) Urine Protein 100 mg/dl (Negative) mg/dL Urine Glucose (UA) Neg (Negative) mg/dL Urine Ketones Neg (Negative) mg/dL Urine Blood Neg (Negative) Urine Nitrite Neg (Negative) Urine Bilirubin Neg (Negative) Urine Urobilinogen < 2.0 (<2.0) mg/dL Ur Leukocyte Esterase Neg (Negative) Urine WBC (Auto) 1.0 (0.0-6.0) /HPF Urine RBC (Auto) 2.0 (0.0-6.0) /HPF U Epithel Cells (Auto) < 1.0 (0-13.0) /HPF - EKG Data -: EKG Interpreted by Me EKG shows normal: sinus rhythm (PVCs), axis, intervals, QRS complexes, ST-T waves (There is some early repolarization) Rate: normal - EKG Data When compared to previous EKG there are: no significant change Interpretation: unchanged when compared t (10/30/20) - Radiology Data Radiology results: report reviewed, image reviewed interpreted by me: Chest x-ray does not show any acute process. There are no pleural effusions, obvious pneumonia and there is no pneumothorax. No significant cardiomegaly. Abdominal x-ray shows increased stool volume but otherwise nonspecific nonobstructive bowel gas. No free air. CT ABDOMEN AND PELVIS WITHOUT CONTRAST INDICATION: Mid-Sternal Chest pain that radiates down to LEFT side of abdomen. TECHNIQUE: Axial CT images were obtained through the abdomen and pelvis without IV contrast. All CT scans at this location are performed using CT dose reduction for ALARA by means of automated exposure control. COMPARISON: CT abdomen and pelvis 08/16/2020 FINDINGS: LOWER CHEST: Linear bibasilar scarring, unchanged LIVER: No significant abnormality. GALLBLADDER: Remains surgically absent. BILE DUCTS: Chronic biliary ductal dilatation with common bile duct measuring 2.3 cm proximally but tapering distally without CT evidence for choledocholithiasis, unchanged PANCREAS: No significant abnormality. SPLEEN: No significant abnormality. ADRENALS: No significant abnormality. RIGHT KIDNEY and URETER: No significant abnormality. LEFT KIDNEY and URETER: No significant abnormality. STOMACH and SMALL BOWEL: No significant abnormality. COLON: Moderate amount of diffuse colonic stool characteristic for constipation APPENDIX: Normal PERITONEUM: No free fluid. No free air. No fluid collection. LYMPH NODES: No significant adenopathy. AORTA and ARTERIES: Moderate to severe vascular calcifications nonaneurysmal aorta IVC and VEINS: No significant abnormality. URINARY BLADDER: No significant abnormality. REPRODUCTIVE ORGANS: No significant abnormality. ADDITIONAL FINDINGS: None. SKELETAL SYSTEM: No significant abnormality. IMPRESSION: 1. Moderate constipation. No bowel obstruction. 2. No urinary tract calculi or hydronephrosis 3. Chronic biliary ductal dilatation status post cholecystectomy, unchanged. Please correlate with LFTs - Medical Decision Making This patient presents to the emergency department with a complaint of some chest pain that radiates down to the abdomen and then sometimes to the left leg. Overall the patient says that this has been going on for the past few months. The patient was admitted here in August of last year and had an extensive cardiology and gastroenterology evaluation at that time. The patient had a stress test that did not show any ischemic changes. Patient had CT angiography of the abdomen as well as an MRCP due to some chronic and/or consistent bile and pancreatic duct dilatation. The patient was supposed to follow-up outpatient with both GI and cardiology but has not yet done so. The patient also tells me that there was some type of test done at the personal residential that says that he is having some "bleeding on the inside." Patient denies any melanotic stools. His hemoglobin is currently 11, which is about 1.5 g higher than his previous visit. Patient's metabolic panel shows renal insufficiency consistent with his end-stage renal disease. No significant hyperkalemia as the potassium is currently 5.2. Patient's troponin came back slightly elevated at 0.99 which is consistent with, if not lower than, most of his previous visits. Chest x-ray does not show any pneumonia, pleural effusions, pneumothorax, or any other acute process. Abdominal x-ray shows nonspecific nonobstructive bowel gas with some increased stool volume. No free air seen. A CT of the abdomen pelvis without contrast was done that once again shows the chronic ductal dilatation, but otherwise no acute process found. His vital signs have been reassuring throughout his ED course including being afebrile. I discussed the patient's presentation and the elevated troponin level with the pig caster on-call who agrees that the patient does not appear to have a typical presentation or evaluation for coronary artery disease and that the patient appears safe for discharge home for outpatient follow-up with cardiology. The patient was already supposed to see gastroenterology but has been recently told that he may need an outpatient colonoscopy. He will once again be given the referral for [facility]. The patient says that he has been having some hard bowel movements and the x-ray and CT do show increased stool volume, so the patient will be placed on Colace. The patient does not appear to have any life or limb threatening conditions, emergencies that require admission or emergent intervention at this time. He has been instructed to return to the emergency department with any worsening of his symptoms or with any acute distress. Critical Care Time: No Critical care attestation.: If time is entered above; I have spent that time in minutes in the direct care of this critically ill patient, excluding procedure time. ED Disposition Clinical Impression: End stage renal disease, Thrombocytopenia Chest pain Qualifiers: Chest pain type: unspecified Qualified Code(s): R07.9 - Chest pain, unspecified Abdominal pain Qualifiers: Abdominal location: unspecified location Qualified Code(s): R10.9 - Unspecified abdominal pain Hypertension Qualifiers: Hypertension type: renovascular hypertension Qualified Code(s): I15.0 - Renovascular hypertension Disposition: TO HOME OR SELFCARE Is pt being admited?: No Condition: Stable Instructions: Abdominal Pain, Adult, Nonspecific Chest Pain, Adult, Hypertension, Adult, Hypertension (ED) Additional Instructions: Please follow-up for your dialysis session tomorrow as previously scheduled. Please follow-up with your primary care physician in the next few days. I have once again given you a referral for [facility]. I have also given you a referral for [facility] to follow-up regarding your chronic chest pains. Please take all of your medications as prescribed. Return to the emergency department with any worsening of your symptoms, new or concerning symptoms not addressed during this current emergency department vis it, or with any acute distress. Prescriptions: Docusate Sodium [Colace] 100 mg PO BID PRN #20 capsule PRN Reason: Constipation Pantoprazole [Protonix TAB] 40 mg PO QDAY #30 tablet Referrals: PRIMARY CAREMD [Primary Care Provider] - 2-3 Days SERGIO BANEGAS MD [Staff Physician] - 2-3 Days [facility] [Provider Group] - 2-3 Days Time of Disposition: 00:41
[2020-12-19] MEDS ORDERED: MORPHINE 4 MG/1 ML INJ IV ONE (20:58)
[2020-12-19 21:26] LABS: Albumin 4.1 g/dL (3.9-5); Calcium 8.9 mg/dL (8.4-10.2)
[2020-12-19 21:38] LABS: Basophils % (Auto) 1.1 % (0.0-1.8); Eosinophils # (Auto) 0.2 K/mm3 (0.0-0.4); Eosinophils % (Auto) 5.7 % (0.0-4.3); Hematocrit 36.6 % (35.5-45.6); Hemoglobin 11.4 gm/dl (11.8-15.2); Lymphocytes # (Auto) 1.3 K/mm3 (1.2-5.4); Lymphocytes % (Auto) 39.2 % (13.4-35.0); Mean Corpuscular HGB Conc 31 % (32-34); Mean Corpuscular Volume 76 fl (84-94); Monocytes # (Auto) 0.5 K/mm3 (0.0-0.8); Monocytes % (Auto) 14.8 % (0.0-7.3); Red Blood Count 4.82 M/mm3 (3.65-5.03); Red Cell Distribution Width 17.7 % (13.2-15.2)
[2020-12-19 21:42] LABS: Platelet Count 114 K/mm3 (140-440)
[2020-12-19 21:49] LABS: INR 0.82 (0.87-1.13)
[2020-12-19 21:50] LABS: Partial Thromboplastin Time 24.5 Sec. (24.2-36.6)
[2020-12-19 22:11] LABS: Chol/HDL Ratio 2.33 %
--- NOTE | 2020-12-19 23:16 | Cat Scan Report ---
CT ABDOMEN AND PELVIS WITHOUT CONTRAST INDICATION: Mid-Sternal Chest pain that radiates down to LEFT side of abdomen. TECHNIQUE: Axial CT images were obtained through the abdomen and pelvis without IV contrast. All CT scans at [facility] location are performed using CT dose reduction for ALARA by means of automated exposure control. COMPARISON: CT abdomen and pelvis 08/16/2020 FINDINGS: LOWER CHEST: Linear bibasilar scarring, unchanged LIVER: No significant abnormality. GALLBLADDER: Remains surgically absent. BILE DUCTS: Chronic biliary ductal dilatation with common bile duct measuring 2.3 cm proximally but t apering distally without CT evidence for choledocholithiasis, unchanged PANCREAS: No significant abnormality. SPLEEN: No significant abnormality. ADRENALS: No significant abnormality. RIGHT KIDNEY and URETER: No significant abnormality. LEFT KIDNEY and URETER: No significant abnormality. STOMACH and SMALL BOWEL: No significant abnormality. COLON: Moderate amount of diffuse colonic stool characteristic for constipation APPENDIX: Normal PERITONEUM: No free fluid. No free air. No fluid collection. LYMPH NODES: No significant adenopathy. AORTA and ARTERIES: Moderate to severe vascular calcifications nonaneurysmal aorta IVC and VEINS: No significant abnormality. URINARY BLADDER: No significant abnormality. REPRODUCTIVE ORGANS: No significant abnormality. ADDITIONAL FINDINGS: None. SKELETAL SYSTEM: No significant abnormality. IMPRESSION: 1. Moderate constipation. No bowel obstruction. 2. No urinary tract calculi or hydronephrosis 3. Chronic biliary ductal dilatation status post cholecystectomy, unchanged. Please correlate with LF Ts Signer Name: Vikram Vargas MD Signed: 12/19/2020 11:11 PM Workstation Name: [id number]
[2020-12-20] MEDS ORDERED: ACETAMINOPHEN 325 MG TAB PO ONE (00:11)
[2020-12-20] MEDS ORDERED: MORPHINE 4 MG/1 ML INJ IV ONE (00:11)
[2020-12-20 00:34] LABS: Bilirubin,Urine NEG (Negative); Blood,Urine NEG (Negative); Color,Urine Straw (Yellow); Urobilinogen,Urine < 2.0 mg/dL (<2.0)
[2020-12-20 00:50] VITALS: BP 168/79
--- NOTE | 2020-12-22 10:57 | Electrocardiograph Report ---
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
--- NOTE | 2020-12-22 10:58 | Electrocardiograph Report ---
[facility] Test Date: 2020-12-19 Test Time: 20:44:38 Pat Name: GRACY VAZQUEZ Department: Room: Gender: M [place] Operator: NISA : [id number] Requested By: CARMEN ARCHULETA Order Number: [id number] Reading MD: Juan M Pablo Measurements Intervals [place] Rate: 68 P: -6 CO: 194 QRS: -1 QRSD: 72 T: 0 QT: 412 QTc: 439 Interpretive Statements Sinus rhythm Left atrial enlargement ST elevation suggests acute pericarditis Compared to ECG 12/19/2020 18:14:17 Ventricular premature complex(es) no longer present ST (T wave) deviation still present Electronically Signed On 12-22-2020 7:57:57 PDT by Jaun M Pablo
== END 2020-12-20 00:50 | disposition home or self-care (01) ==
LOC: ED 17:56
DX: E11.22 Type 2 diabetes mellitus with diabetic chronic kidney disease (principal); I12.0 Hypertensive chronic kidney disease with stage 5 chronic kidney disease or end stage renal disease; N18.6 End stage renal disease; D69.6 Thrombocytopenia, unspecified; Z79.82 Long term (current) use of aspirin; Z79.899 Other long term (current) drug therapy
CPT/HCPCS: 36415; 71046; 74019; 74176; 80053; 80061; 81001; 83690; 84484; 85025; 85610; 85730; 93005; 99284; J2270

== ENCOUNTER 2020-12-26 19:17 | Emergency (ER) | payer MEDICAID ==
[2020-12-26] MEDS ORDERED: LACTULOSE 20 GM/30 ML ORAL LIQD PO ONE (22:04)
[2020-12-26] MEDS ORDERED: oxyCODONE /ACETAMINOPHEN 5-325MG TAB PO ONE (22:04)
--- NOTE | 2020-12-26 22:04 | Emergency Department Report ---
ED Male HPI - General Chief complaint: Urogenital-Male Stated complaint: DIFFICULTY URINATING Time Seen by Provider: 12/26/20 21:40 Source: patient, EMS Mode of arrival: Wheelchair Limitations: Physical Limitation - History of Present Illness Initial comments: Chief complaint: "It scared me. I want to . I am not making any urine." HPI: This is a 65-year-old male with history of end-stage renal disease on hemodialysis for the past 2 years, hypertension, chronic back pain, diabetes mellitus, nicotine dependence, hepatitis C who presents with decreased urine output over last 3 days. He has known mild urge to urinate. However he is not uncomfortable. He does not have any knee pain. Over the past several months he has had a small trickle of urine. He stated that he was just "scared". He admitted that he did not want to . He takes Percocet for chronic back pain. He has had constipation. He was prescribed stool softeners. He has not taken his medication. 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 09/25/20 Unknown Rx Valsartan [Diovan] 160 mg PO DAILY tablet 09/25/20 Unknown Rx Valsartan [Diovan] 160 mg PO Q12HR #60 tablet 09/25/20 Unknown Rx amLODIPine 10 mg PO QDAY #30 tablet 09/25/20 Unknown Rx carvediloL [Coreg] 12.5 mg PO BID #60 tablet 09/25/20 Unknown Rx hydrALAZINE [Apresoline TAB] 100 mg PO TID #90 tab 09/25/20 Unknown Rx oxyCODONE /ACETAMINOPHEN [Percocet 1 tab PO Q6HR PRN #10 09/25/20 Unknown Rx 5/325 mg] oxyCODONE /ACETAMINOPHEN [Percocet 1 tab PO Q6HR PRN #15 tablet 10/30/20 Unknown Rx 5/325] Docusate Sodium [Colace] 100 mg PO BID PRN #20 capsule 12/20/20 Unknown Rx Pantoprazole [Protonix TAB] 40 mg PO QDAY #30 tablet 12/20/20 Unknown Rx Allergies Allergy/AdvReac Type Severity Reaction Status Date / Time No Known Allergies Allergy Verified 12/19/20 17:58 ED Review of Systems ROS: Stated complaint: DIFFICULTY URINATING Other details as noted in HPI Comment: All other systems reviewed and negative Constitutional: denies: fever, malaise Respiratory: denies: cough, shortness of breath Gastrointestinal: denies: abdominal pain, nausea, vomiting Genitourinary: denies: dysuria, hematuria, testicular pain, testicular mass Musculoskeletal: back pain (Chronic back pain) ED Past Medical Hx - Past Medical History Previous Medical History?: Yes Hx Hypertension: Yes Hx Congestive Heart Failure: No Hx Diabetes: Yes Hx Kidney Stones: Yes (Dialysis Tues,Thurs,Sat) Hx Asthma: No Hx COPD: No - Surgical History Past Surgical History?: Yes Additional Surgical History: Wrist, right arm, Hip - Social History Smoking Status: Never Smoker Substance Use Type: None - Medications Home Medications: Home Medications Medication Instructions Recorded Confirmed Last Taken Type Famotidine [Pepcid] 20 mg PO QAM #30 tablet 08/17/20 09/22/20 Unknown Rx Aspirin EC [Halfprin EC] 81 mg PO QDAY #30 tablet. 09/25/20 Unknown Rx Valsartan [Diovan] 160 mg PO DAILY tablet 09/25/20 Unknown Rx Valsartan [Diovan] 160 mg PO Q12HR #60 tablet 09/25/20 Unknown Rx amLODIPine 10 mg PO QDAY #30 tablet 09/25/20 Unknown Rx carvediloL [Coreg] 12.5 mg PO BID #60 tablet 09/25/20 Unknown Rx hydrALAZINE [Apresoline TAB] 100 mg PO TID #90 tab 09/25/20 Unknown Rx oxyCODONE /ACETAMINOPHEN [Percocet 1 tab PO Q6HR PRN #10 09/25/20 Unknown Rx 5/325 mg] oxyCODONE /ACETAMINOPHEN [Percocet 1 tab PO Q6HR PRN #15 tablet 10/30/20 Unknown Rx 5/325] Docusate Sodium [Colace] 100 mg PO BID PRN #20 capsule 12/20/20 Unknown Rx Pantoprazole [Protonix TAB] 40 mg PO QDAY #30 tablet 12/20/20 Unknown Rx ED Physical Exam - General Limitations: No Limitations General appearance: alert, in no apparent distress, other (Comfortable in no acute distress) - Head Head exam: Present: atraumatic, normocephalic - Eye Eye exam: Present: normal appearance - ENT ENT exam: Present: mucous membranes moist - Neck Neck exam: Present: normal inspection, full ROM - Respiratory Respiratory exam: Present: normal lung sounds bilaterally. Absent: respiratory distress - Cardiovascular Cardiovascular Exam: Present: regular rate, normal rhythm, normal heart sounds. Absent: systolic murmur, diastolic murmur, rubs, gallop - GI/Abdominal GI/Abdominal exam: Present: soft, normal bowel sounds. Absent: distended, tenderness, guarding, rebound - Rectal Rectal exam: Present: deferred - Extremities Exam Extremities exam: Present: normal inspection - Neurological Exam Neurological exam: Present: alert, oriented X3 - Psychiatric Psychiatric exam: Present: normal affect, normal mood - Skin Skin exam: Present: warm, dry, intact, normal color. Absent: rash ED Course Vital Signs 12/26/20 12/26/20 12/26/20 20:20 21:50 22:00 Temperature 97.9 F 98.1 F Pulse Rate 65 70 69 Respiratory 16 14 Rate Blood Pressure 140/60 131/66 Blood Pressure 131/66 [Right] O2 Sat by Pulse 98 99 98 Oximetry 12/26/20 12/26/20 22:16 22:20 Temperature Pulse Rate 66 Respiratory 18 Rate Blood Pressure 140/65 Blood Pressure [Right] O2 Sat by Pulse 98 Oximetry ED Medical Decision Making - Medical Decision Making 1. Decreased urine output due to progressive end-stage renal disease, patient required education. He understands that he will likely not make urine on a daily basis. He does not have any discomfort to suggest urinary retention. Bladder scan did not reveal large volume of retained urine. Bladder volume scan 53 ml 2. Chronic back pain with constipation: I strongly encouraged daily use of stool softeners. Patient received Percocet and lactulose in the emergency department for comfort. Critical care attestation.: If time is entered above; I have spent that time in minutes in the direct care of this critically ill patient, excluding procedure time. ED Disposition Clinical Impression: End-stage renal disease on hemodialysis, Chronic back pain, Constipation due to opioid therapy Disposition: DC-01 TO HOME OR SELFCARE Is pt being admited?: No Does the pt Need Aspirin: No Condition: Stable Instructions: Constipation, Adult, [id number]
[2020-12-26 23:34] VITALS: BP 129/62
== END 2020-12-26 22:50 | disposition home or self-care (01) ==
LOC: ED 19:17
DX: E11.22 Type 2 diabetes mellitus with diabetic chronic kidney disease (principal); I12.0 Hypertensive chronic kidney disease with stage 5 chronic kidney disease or end stage renal disease; N18.6 End stage renal disease; Z99.2 Dependence on renal dialysis; K59.09 Other constipation; Z79.82 Long term (current) use of aspirin; Z79.899 Other long term (current) drug therapy
CPT/HCPCS: 99283

== ENCOUNTER 2021-02-27 21:37 | Emergency (ER) | payer MEDICAID ==
[2021-02-27] MEDS ORDERED: ASPIRIN 325 MG TAB PO ONE (23:53)
[2021-02-28 00:34] LABS: Basophils % (Auto) 0.9 % (0.0-1.8); Eosinophils # (Auto) 0.2 K/mm3 (0.0-0.4); Eosinophils % (Auto) 3.6 % (0.0-4.3); Hemoglobin 9.3 gm/dl (11.8-15.2); Lymphocytes # (Auto) 1.6 K/mm3 (1.2-5.4); Lymphocytes % (Auto) 36.3 % (13.4-35.0); Mean Corpuscular HGB Conc 33 % (32-34); Mean Corpuscular Volume 72 fl (84-94); Monocytes # (Auto) 0.5 K/mm3 (0.0-0.8); Monocytes % (Auto) 11.3 % (0.0-7.3); Platelet Count 133 K/mm3 (140-440); Red Blood Count 3.88 M/mm3 (3.65-5.03); Red Cell Distribution Width 18.9 % (13.2-15.2)
--- NOTE | 2021-02-28 00:55 | XRay Report ---
CHEST 1 VIEW INDICATION: chest pain COMPARISON: 12/19/2020 FINDINGS: SUPPORT DEVICES: None. HEART / MEDIASTINUM: No significant abnormality. LUNGS / PLEURA: No significant pulmonary or pleural abnormality. No pneumothorax. ADDITIONAL FINDINGS: IMPRESSION: 1. No acute cardiopulmonary disease Signer Name: Flaco German MD Signed: 02/28/2021 12:51 AM Workstation Name: [id number]
[2021-02-28 00:57] LABS: Albumin 4.1 g/dL (3.9-5); Calcium 8.5 mg/dL (8.4-10.2)
--- NOTE | 2021-02-28 02:13 | Emergency Department Report ---
ED General Adult HPI - General Chief complaint: Chest Pain Stated complaint: Chest wall pain PUI?: No Time Seen by Provider: 02/28/21 02:11 Source: patient, RN notes reviewed, old records reviewed Mode of arrival: Ambulatory Limitations: No Limitations - History of Present Illness Initial comments: The patient was evaluated in the emergency department for symptoms described in the history of present illness. He/she was evaluated in the context of the global COVID-19 pandemic, which necessitated consideration that the patient might be at risk for infection with the virus that causes COVID-19. Institutional protocols and algorithms that pertain to the evaluation of patients at risk for COVID-19 are in a state of rapid change based on information released by regulatory bodies including the CDC and federal and state organizations. These policies and algorithms were followed during the patient's care in the emergency department. Please note that these policies, procedures and recommendations changed on a rapid basis. This is a 65-year-old gentleman. I have evaluated this patient in the past. His past medical history includes end-stage renal disease on hemodialysis, Saturday, , Saturday. He also has a history of hypertension, chronic pain, diabetes, and is currently seeing an outpatient pain specialist. His primary care doctor is Dr. Allen Recent objective diagnostic testing at this hospital Cardiac nuclear stress test, August 2020: Negative for ischemic findings. CT angiogram chest, August 2020, negative for acute findings. CT angiogram abdomen pelvis, August 2020, negative for acute findings. Noncontrast CT scan of the abdomen pelvis, November 2020, negative for acute findings. The patient presents to the ER today with a complaint of nontraumatic right sided posterior thoracic pain, right lateral rib pain, and right anterior chest wall pain, which has been present for a few hours. He denies headache, neck pain, vomiting, diaphoresis. He has chronic shortness of breath. He takes aspirin on a daily basis. He is right-hand dominant. He is due for hemodialysis this morning, in a few hours. He denies posterior leg pain, swelling, travel or immobilization. His chest wall, thoracic wall and rib pain increased with palpation and decreased with rest. He was told that he has "degenerating bones." -: Gradual, hour(s) Location: chest (Right posterior thorax, right lateral thorax, right anterior thorax) Radiation: other (Posterior to anterior) Consistency: constant Improves with: medication, rest Worsens with: movement - Related Data Previous Rx's Medication Instructions Recorded Last Taken Type Famotidine [Pepcid] 20 mg PO QAM #30 tablet 08/17/20 Unknown Rx Aspirin EC [Halfprin EC] 81 mg PO QDAY #30 tablet. 09/25/20 Unknown Rx Valsartan [Diovan] 160 mg PO DAILY tablet 09/25/20 Unknown Rx Valsartan [Diovan] 160 mg PO Q12HR #60 tablet 09/25/20 Unknown Rx amLODIPine 10 mg PO QDAY #30 tablet 09/25/20 Unknown Rx carvediloL [Coreg] 12.5 mg PO BID #60 tablet 09/25/20 Unknown Rx hydrALAZINE [Apresoline TAB] 100 mg PO TID #90 tab 09/25/20 Unknown Rx oxyCODONE /ACETAMINOPHEN [Percocet 1 tab PO Q6HR PRN #10 09/25/20 Unknown Rx 5/325 mg] oxyCODONE /ACETAMINOPHEN [Percocet 1 tab PO Q6HR PRN #15 tablet 10/30/20 Unknown Rx 5/325] Docusate Sodium [Colace] 100 mg PO BID PRN #20 capsule 12/20/20 Unknown Rx Pantoprazole [Protonix TAB] 40 mg PO QDAY #30 tablet 12/20/20 Unknown Rx Allergies Allergy/AdvReac Type Severity Reaction Status Date / Time No Known Allergies Allergy Verified 12/19/20 17:58 ED Review of Systems ROS: Stated complaint: CHEST PAIN Other details as noted in HPI Constitutional: denies: fever, malaise ENT: denies: epistaxis Respiratory: shortness of breath (Chronic shortness of) Cardiovascular: other (Chest wall pain) Gastrointestinal: constipation Musculoskeletal: myalgia Neurological: weakness ED Past Medical Hx - Past Medical History Previous Medical History?: Yes Hx Hypertension: Yes Hx Congestive Heart Failure: No Hx Diabetes: Yes Hx Kidney Stones: Yes (Dialysis Tues,Th,Sat) Hx Asthma: No Hx COPD: No - Surgical History Past Surgical History?: Yes Additional Surgical History: Wrist, right arm, Hip - Social History Smoking Status: Current Some Day Smoker Substance Use Type: None - Medications Home Medications: Home Medications Medication Instructions Recorded Confirmed Last Taken Type Famotidine [Pepcid] 20 mg PO QAM #30 tablet 08/17/20 09/22/20 Unknown Rx Aspirin EC [Halfprin EC] 81 mg PO QDAY #30 tablet. 09/25/20 Unknown Rx Valsartan [Diovan] 160 mg PO DAILY tablet 09/25/20 Unknown Rx Valsartan [Diovan] 160 mg PO Q12HR #60 tablet 09/25/20 Unknown Rx amLODIPine 10 mg PO QDAY #30 tablet 09/25/20 Unknown Rx carvediloL [Coreg] 12.5 mg PO BID #60 tablet 09/25/20 Unknown Rx hydrALAZINE [Apresoline TAB] 100 mg PO TID #90 tab 09/25/20 Unknown Rx oxyCODONE /ACETAMINOPHEN [Percocet 1 tab PO Q6HR PRN #10 09/25/20 Unknown Rx 5/325 mg] oxyCODONE /ACETAMINOPHEN [Percocet 1 tab PO Q6HR PRN #15 tablet 10/30/20 Unk nown Rx 5/325] Docusate Sodium [Colace] 100 mg PO BID PRN #20 capsule 12/20/20 Unknown Rx Pantoprazole [Protonix TAB] 40 mg PO QDAY #30 tablet 12/20/20 Unknown Rx ED Physical Exam - General Limitations: No Limitations General appearance: alert, in no apparent distress - Head Head exam: Present: atraumatic, normocephalic - Eye Eye exam: Present: normal appearance, EOMI. Absent: nystagmus - ENT ENT exam: Present: normal exam, normal orophraynx, mucous membranes moist, lul l external ear exam - Neck Neck exam: Present: normal inspection, full ROM. Absent: tenderness, meningismus - Respiratory Respiratory exam: Present: normal lung sounds bilaterally, chest wall tenderness. Absent: respiratory distress, wheezes, rales, rhonchi, stridor - Cardiovascular Cardiovascular Exam: Present: regular rate, normal rhythm, normal heart sounds. Absent: bradycardia, tachycardia, irregular rhythm, systolic murmur, diastolic murmur, rubs, gallop - GI/Abdominal GI/Abdominal exam: Present: soft. Absent: distended, tenderness, guarding, rebound, rigid, pulsatile mass - Rectal Rectal exam: Present: deferred - Extremities Exam Extremities exam: Present: normal inspection (Left upper extremity fistula, without redness, pus or streaking), full ROM, pedal edema (1+ edema bilateral lower extremities), other (2+ pulses noted in the bilateral upper and lower extremities. There is no palpable cord. negative Homans sign. Muscular compartments are soft. The pelvis is stable.). Absent: calf tenderness - Back Exam Back exam: Present: normal inspection. Absent: tenderness, CVA tenderness (R), vertebral tenderness - Neurological Exam Neurological exam: Present: alert, other (No facial droop. Tongue midline. Extraocular movements intact bilaterally. Facial sensation intact to light touch in V1, V2, V3 distribution bilaterally. 5 and a 5 strength in 4 extre mities. Sensation intact to light touch in 4 extremities.). Absent: motor sensory deficit - Psychiatric Psychiatric exam: Present: normal affect, normal mood - Skin Skin exam: Present: warm, dry, intact, normal color. Absent: rash ED Course Vital Signs 02/27/21 22:18 Temperature 97.8 F Pulse Rate 77 Respiratory 18 Rate Blood Pressure 118/56 O2 Sat by Pulse 97 Oximetry - Reevaluation(s) Reevaluation #1: 02/28/21 02:28 Differential diagnosis, including but not limited to: Radiculopathy, costochondritis, pneumonia, pneumothorax, chronic coronary artery disease Assessment and plan: 65-year-old gentleman, who is not currently tachycardic, tachypneic or hypoxic, who currently denies DVT and pulmonary embolism risk factors, who is low risk by Wells criteria for pulmonary embolism, with reproducible chest wall, thoracic wall, and posterior back pain/tenderness, without evidence of vesicular lesions, cellulitis, myositis, or fracture, likely experiencing natural history of costochondritis. There may be a radicular component to this as well. His EKG is unchanged from prior. His troponin is chronically elevated, and this is likely a type II troponin leak. Cardiovascular risk factor profile reviewed and appreciated, however, given history, physical, no recent objective diagnostic studies at this facility, I favor costochondritis or radiculopathy is the most likely etiology of patient's pain. He will need to follow-up with his primary care doctor, pain specialist, or lumber salvager as an outpatient. Repeat troponin, repeat EKG pending, to ascertain/make certain that there is no significant interval change. Assuming these are unchanged and unremarkable, he can follow-up as an outpatient. He will be given hydromorphone for his pain. Patient is counseled to consider de-escalating narcotic therapy, as an outpatient, as it may be contributing to hyperalgesia, as well as constipation. Reevaluation #2: 02/28/21 02:32 EKG #2 is unchanged from prior EKG. It is also not consistent with a STEMI. Reevaluation #3: 02/28/21 04:12 Final reassessment. Patient resting comfortably on stretcher and in no acute distress. Troponin at baseline. EKG unchanged x2. He is in no acute distress. Suitable for discharge with outpatient follow-up ED Medical Decision Making - Lab Data Result diagrams: 02/27/21 23:57 02/27/21 23:57 Vital Signs 02/27/21 22:18 Temperature 97.8 F Pulse Rate 77 Respiratory 18 Rate Blood Pressure 118/56 O2 Sat by Pulse 97 Oximetry Lab Results 02/27/21 02/27/21 Range/Units 23:57 23:57 WBC 4.3 L (4.5-11.0) K/mm3 RBC 3.88 (3.65-5.03) M/mm3 Hgb 9.3 L (11.8-15.2) gm/dl Hct 28.0 L (35.5-45.6) % MCV 72 L (84-94) fl MCH 24 L (28-32) pg MCHC 33 (32-34) % RDW 18.9 H (13.2-15.2) % Plt Count 133 L (140-440) K/mm3 Lymph % (Auto) 36.3 H (13.4-35.0) % [place] % (Auto) 11.3 H (0.0-7.3) % Eos % (Auto) 3.6 (0.0-4.3) % Baso % (Auto) 0.9 (0.0-1.8) % Lymph # (Auto) 1.6 (1.2-5.4) K/mm3 [place] # (Auto) 0.5 (0.0-0.8) K/mm3 Eos # (Auto) 0.2 (0.0-0.4) K/mm3 Baso # (Auto) 0.0 (0.0-0.1) K/mm3 Seg Neutrophils % 47.9 (40.0-70.0) % Seg Neutrophils # 2.1 (1.8-7.7) K/mm3 Sodium 137 (137-145) mmol/L Potassium 5.3 H (3.6-5.0) mmol/L Chloride 94.3 L (98-107) mmol/L Carbon Dioxide 29 (22-30) mmol/L Anion Gap 19 mmol/L BUN 54 H (9-20) mg/dL Creatinine 9.1 H (0.8-1.3) mg/dL Estimated GFR 7 ml/min BUN/Creatinine Ratio 6 % Glucose 134 H (75-100) mg/dL Calcium 8.5 (8.4-10.2) mg/dL Total Bilirubin 0.20 (0.1-1.2) mg/dL AST 17 (5-40) units/L ALT 16 (7-56) units/L Alkaline Phosphatase 155 H (35-129) units/L Troponin T 0.120 H* (0.00-0.029) ng/mL Total Protein 6.5 (6.3-8.2) g/dL Albumin 4.1 (3.9-5) g/dL Albumin/Globulin Ratio 1.7 % - EKG Data -: EKG Interpreted by Pa EKG shows normal: sinus rhythm Rate: normal - EKG Data When compared to previous EKG there are: no significant change 02/28/21 02:27 EKG #1, unchanged from prior EKG from 12/19/2020 EKG today interpreted at 22: 36 Sinus rhythm, 74 bpm, normal axis, QTC prolonged, left ventricular hypertrophy, and poor R wave progression. This is an abnormal EKG. This is not a STEMI - Radiology Data Radiology results: report reviewed, image reviewed CHEST 1 VIEW INDICATION: chest pain COMPARISON: 12/19/2020 FINDINGS: SUPPORT DEVICES: None. HEART / MEDIASTINUM: No significant abnormality. LUNGS / PLEURA: No significant pulmonary or pleural abnormality. No pneumothorax. ADDITIONAL FINDINGS: IMPRESSION: 1. No acute cardiopulmonary disease Signer Name: Flaco German MD Signed: 02/27/2021 11:51 PM Workstation Name: [id number] CT ABDOMEN AND PELVIS WITHOUT CONTRAST INDICATION: Mid-Sternal Chest pain that radiates down to LEFT side of abdomen. TECHNIQUE: Axial CT images were obtained through the abdomen and pelvis without IV contrast. All CT scans at this location are performed using CT dose reduction for ALARA by means of automated exposure control. COMPARISON: CT abdomen and pelvis 08/16/2020 FINDINGS: LOWER CHEST: Linear bibasilar scarring, unchanged LIVER: No significant abnormality. GALLBLADDER: Remains surgically absent. BILE DUCTS: Chronic biliary ductal dilatation with common bile duct measuring 2.3 cm proximally but tapering distally without CT evidence for choledocholithiasis, unchanged PANCREAS: No significant abnormality. SPLEEN: No significant abnormality. ADRENALS: No significant abnormality. RIGHT KIDNEY and URETER: No significant abnormality. LEFT KIDNEY and URETER: No significant abnormality. STOMACH and SMALL BOWEL: No significant abnormality. COLON: Moderate amount of diffuse colonic stool characteristic for constipation APPENDIX: Normal PERITONEUM: No free fluid. No free air. No fluid collection. LYMPH NODES: No significant adenopathy. AORTA and ARTERIES: Moderate to severe vascular calcifications nonaneurysmal aorta IVC and VEINS: No significant abnormality. URINARY BLADDER: No significant abnormality. REPRODUCTIVE ORGANS: No significant abnormality. ADDITIONAL FINDINGS: None. SKELETAL SYSTEM: No significant abnormality. IMPRESSION: 1. Moderate constipation. No bowel obstruction. 2. No urinary tract calculi or hydronephrosis 3. Chronic biliary ductal dilatation status post cholecystectomy, unchanged. Please correlate with LFTs Signer Name: Vikram Vargas MD Signed: 12/19/2020 10:11 PM Workstation Name: [employer] [id number] CTA chest, abdomen, and pelvis with contrast INDICATION : SHARP TEARING CP THAT RAD TO ABD/GROIN, LEG. TECHNIQUE: Axial imaging performed through the chest, abdomen, and pelvis with contrast bolus timing set to maximize opacification of the aorta. 3-plane MIP reformatted images were obtained. All CT scans at this location are performed using CT dose reduction for ALARA by means of automated exposure control. 100 mL of intravenous contrast administered. COMPARISON: CT abdomen/pelvis from 08/16/2020 FINDINGS: ANGIOGRAPHIC FINDINGS: Contrast bolus timing is adequate, with opacification of the entire aorta and branch vessels. There is no aneurysm, dissection, or other acute vascular abnormality. Moderate multifocal atherosclerotic disease is seen throughout the entire thoracic and abdominal aorta, also involving the branch vessels arteries of the pelvis. No critical stenosis identified. Moderate atherosclerotic disease is also present in the coronary arteries. Heart size is normal. CHEST: No pathologic mediastinal adenopathy. There are moderate emphysematous changes in the lungs with bibasilar atelectasis. No consolidation or effusion. Degenerative changes are present in the spine with nothing acute. ABDOMEN/PELVIS: The gallbladder is surgically absent. There is intrahepatic and less prominently extrahepatic bi liary ductal dilatation measuring up to 2.3 cm in maximal transverse dimension on image #250 of series #2. There is distal CBD tapering. There is also mild dilatation of the pancreatic duct. No gross mass identified. No evidence of pancreatitis. The spleen, adrenals, kidneys, and proximal GI tract appear unremarkable. Prostate is normal. No pelvic free fluid. The urinary bladder is unremarkable. No acute colonic abnormality identified. There are degenerative changes in the spine and pelvis with nothing acute. IMPRESSION: 1. No acute vascular abnormality identified. Multifocal atherosclerotic disease with no critical stenosis. 2. Although the gallbladder is surgically absent and postcholecystectomy congestion can be seen, there is gross dilatation of the CBD and to a lesser extent the intrahepatic biliary tree. There is also mild dilatation of the pancreatic duct. No obvious stone or mass identified; however, recommend follow-up nonemergent MRCP for further evaluation. Signer Name: Rashel Ellsion MD Signed: 09/21/2020 11:15 PM Workstation Name: [id number] Critical care attestation.: If time is entered above; I have spent that time in minutes in the direct care of this critically ill patient, excluding procedure time. ED Disposition Clinical Impression: End stage renal disease on dialysis, Chest wall pain Disposition: DC-01 TO HOME OR SELFCARE Is pt being admited?: No Does the pt Need Aspirin: No Condition: Stable Instructions: Dialysis, Costochondritis Additional Instructions: Rest, avoid heavy lifting, and strenuous physical activities. Please continue current outpatient medications. Please follow-up with a primary care doctor or lumber salvager within the next [address] Grullon is a local lumber salvager. Dr. Aponte is a local primary care doctor. Please follow-up with the kidney doctor/roller bearing inspector, such as Dr. Romero, within the next 3 to 4 weeks. Patient is most likely experiencing costochondritis, which is inflammation of the muscles/connective tissue of the chest wall, with a possible superimposed component of nerve pain. Patient may follow-up with his primary care doctor or pain specialist within the recommended timeframe. Patient may benefit from ice packs, heat packs, physical therapy. Patient should be aware that long-term narcotic use may cause constipation, as well as paradoxically increased pain. Therefore, the patient may want to discuss with his pain specialist nonnarcotic/nonpharmacologic methods of pain control, such as acupuncture, massage, physical therapy, or alternative complementary therapy. Please make certain to follow-up with outpatient hemodialysis later on today. Please return to the emergency room right away with new pain, worsened pain, migration of pain, projectile vomiting, change in mental status, confusion, inability to tolerate liquid feeds, new, worsened or different symptoms not present on the initial emergency room evaluation. Referrals: SHEBA GRULLON MD [Staff Physician] - 3-5 Days BALBINA ROMERO MD [Staff Physician] - 3-5 Days SUNSHINE APONTE MD [Staff Physician] - 3-5 Days
[2021-02-28] MEDS ORDERED: HYDROmorphone 1 MG/1 ML INJ IM ONE (02:23)
[2021-02-28] MEDS ORDERED: oxyCODONE /ACETAMINOPHEN 5-325MG TAB PO ONE (02:35)
[2021-02-28 02:43] LABS: Chol/HDL Ratio 2.16 %
[2021-02-28 05:00] VITALS: BP 144/80
--- NOTE | 2021-03-01 10:12 | Electrocardiograph Report ---
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
--- NOTE | 2021-03-01 10:13 | Electrocardiograph Report ---
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
== END 2021-02-28 05:00 | disposition home or self-care (01) ==
LOC: ED 21:37
DX: E11.22 Type 2 diabetes mellitus with diabetic chronic kidney disease (principal); I12.0 Hypertensive chronic kidney disease with stage 5 chronic kidney disease or end stage renal disease; N18.6 End stage renal disease; R07.89 Other chest pain; Z99.2 Dependence on renal dialysis; F17.200 Nicotine dependence, unspecified, uncomplicated; Z98.890 Other specified postprocedural states; Z79.899 Other long term (current) drug therapy
CPT/HCPCS: 36415; 71045; 80053; 80061; 84484; 85025; 93005

== ENCOUNTER 2021-03-18 10:26 | Emergency (ER) | payer MEDICAID ==
[2021-03-18] MEDS ORDERED: ASPIRIN 325 MG TAB PO ONE (11:30)
--- NOTE | 2021-03-18 12:11 | XRay Report ---
XR chest routine 2V INDICATION / CLINICAL INFORMATION: chest pain. COMPARISON: 02/28/2021 FINDINGS: SUPPORT DEVICES: None. HEART /PULMONARY VASCULATURE: No significant abnormality. LUNGS / PLEURA: No significant pulmonary or pleural abnormality. No pneumothorax. ADDITIONAL FINDINGS: No significant additional findings. IMPRESSION: 1. No acute findings. Signer Name: Sean Marin MD Signed: 03/18/2021 12:06 PM Workstation Name: [id number]
[2021-03-18 12:12] LABS: Hematocrit 30.6 % (35.5-45.6); Hemoglobin 10.2 gm/dl (11.8-15.2); Mean Corpuscular HGB Conc 33 % (32-34); Mean Corpuscular Volume 75 fl (84-94); Platelet Count 171 K/mm3 (140-440)
[2021-03-18 12:15] LABS: Albumin 4.6 g/dL (3.9-5); Calcium 9.2 mg/dL (8.4-10.2)
[2021-03-18 12:28] LABS: Red Cell Distribution Width 23.4 % (13.2-15.2)
[2021-03-18 12:38] LABS: Chol/HDL Ratio 2.4 %
--- NOTE | 2021-03-18 12:57 | Emergency Department Report ---
ED Chest Pain HPI - General Chief Complaint: Chest Pain Stated Complaint: CHEST PAIN Time Seen by Provider: 03/18/21 12:42 Source: patient, EMS Mode of arrival: Ambulatory Limitations: No Limitations - History of Present Illness Initial Comments: Patient is 65 years old male with history of end-stage renal disease on hemodialysis, hypertension and diabetes. Patient presented to the ER complaining of chest pain that started on the right side and moved across the chest. Patient stated that pain is similar to what he had before. Patient was seen here and evaluated several times for the same complaint. Recent objective diagnostic testing at this hospital Cardiac nuclear stress test, August 2020: Negative for ischemic findings. CT angiogram chest, August 2020, negative for acute findings. CT angiogram abdomen pelvis, August 2020, negative for acute findings. Noncontrast CT scan of the abdomen pelvis, November 2020, negative for acute fi ndings. Patient stated that he went for dialysis today and because of the pain he was sent to the emergency room. Patient denied any fever or chills. No shortness of breath. MD Complaint: chest pain -: month(s), This morning Onset: during rest Pain Location: right chest Severity: moderate Severity scale (0 -10): 5 Quality: sharp Consistency: intermittent Improves With: remaining still Worsens With: movement - Related Data Previous Rx's Medication Instructions Recorded Last Taken Type Famotidine [Pepcid] 20 mg PO QAM #30 tablet 08/17/20 Unknown Rx Aspirin EC [Halfprin EC] 81 mg PO QDAY #30 tablet. 09/25/20 Unknown Rx Valsartan [Diovan] 160 mg PO DAILY tablet 09/25/20 Unknown Rx amLODIPine 10 mg PO QDAY #30 tablet 09/25/20 Unknown Rx carvediloL [Coreg] 12.5 mg PO BID #60 tablet 09/25/20 Unknown Rx hydrALAZINE [Apresoline TAB] 100 mg PO TID #90 tab 09/25/20 Unknown Rx oxyCODONE /ACETAMINOPHEN [Percocet 1 tab PO Q6HR PRN #10 09/25/20 Unknown Rx 5/325 mg] Docusate Sodium [Colace] 100 mg PO BID PRN #20 capsule 12/20/20 Unknown Rx Pantoprazole [Protonix TAB] 40 mg PO QDAY #30 tablet 12/20/20 Unknown Rx HYDROcodone/APAP 5-325 [[place] 1 each PO Q6HR PRN #14 tablet 03/18/21 Unknown Rx 5/325] Ondansetron [Zofran Odt] 4 mg PO Q8HR PRN #14 tab.rapdis 03/18/21 Unknown Rx Allergies Allergy/AdvReac Type Severity Reaction Status Date / Time No Known Allergies Allergy Verified 12/19/20 17:58 Heart Score - HEART Score History: Slightly suspicious EKG: Non-specific Age: 45-65 Risk factors: > 3 risk factors or hx of atherosclerotic disease Troponin: > 3x normal limit HEART Score: 6 - EKG Read Time Time EKG Completed: 11:02 EKG Read Time: 11:06 ED Review of Systems ROS: Stated complaint: CHEST PAIN Other details as noted in HPI Comment: All other systems reviewed and negative Constitutional: denies: chills, fever Respiratory: denies: cough, shortness of breath, SOB with exertion Cardiovascular: chest pain. denies: palpitations, dyspnea on exertion Gastrointestinal: denies: abdominal pain, nausea, vomiting Musculoskeletal: denies: back pain Neurological: denies: headache, weakness, numbness ED Past Medical Hx - Past Medical History Previous Medical History?: Yes Hx Hypertension: Yes Hx Congestive Heart Failure: No Hx Diabetes: Yes Hx Kidney Stones: Yes (Dialysis Tu,,Sat) Hx Asthma: No Hx COPD: No - Surgical History Past Surgical History?: Yes Additional Surgical History: Wrist, right arm, Hip, Left arm fistula - Social History Smoking Status: Current Every Day Smoker Substance Use Type: Prescribed - Medications Home Medications: Home Medications Medication Instructions Recorded Confirmed Last Taken Type Famotidine [Pepcid] 20 mg PO QAM #30 tablet 08/17/20 03/18/21 Unknown Rx Aspirin EC [Halfprin EC] 81 mg PO QDAY #30 tablet. 09/25/20 03/18/21 Unknown Rx Valsartan [Diovan] 160 mg PO DAILY tablet 09/25/20 03/18/21 Unknown Rx amLODIPine 10 mg PO QDAY #30 tablet 09/25/20 03/18/21 Unknown Rx carvediloL [Coreg] 12.5 mg PO BID #60 tablet 09/25/20 03/18/21 Unknown Rx hydrALAZINE [Apresoline TAB] 100 mg PO TID #90 tab 09/25/20 03/18/21 Unknown Rx oxyCODONE /ACETAMINOPHEN [Percocet 1 tab PO Q6HR PRN #10 09/25/20 03/18/21 Unknown Rx 5/325 mg] Docusate Sodium [Colace] 100 mg PO BID PRN #20 capsule 12/20/20 03/18/21 Unknown Rx Pantoprazole [Protonix TAB] 40 mg PO QDAY #30 tablet 12/20/20 03/18/21 Unknown Rx HYDROcodone/APAP 5-325 [[place] 1 each PO Q6HR PRN #14 tablet 03/18/21 Unknown Rx 5/325] Ondansetron [Zofran Odt] 4 mg PO Q8HR PRN #14 tab.rapdis 03/18/21 Unknown Rx ED Physical Exam - General Limitations: No Limitations General appearance: alert, in no apparent distress - Head Head exam: Present: atraumatic, normocephalic, normal inspection - Eye Eye exam: Present: normal appearance, PERRL - ENT ENT exam: Present: normal exam, normal orophraynx, mucous membranes moist - Neck Neck exam: Present: normal inspection, full ROM. Absent: tenderness, meningismus - Respiratory Respiratory exam: Present: normal lung sounds bilaterally, chest wall tenderness. Absent: respiratory distress, wheezes, rales, rhonchi, stridor, accessory muscle use, decreased breath sounds, prolonged expiratory - Cardiovascular Cardiovascular Exam: Present: regular rate, normal rhythm, normal heart sounds - GI/Abdominal GI/Abdominal exam: Present: soft, normal bowel sounds. Absent: distended, tenderness, guarding, rebound, rigid, organomegaly, mass, bruit, pulsatile mass, hernia - Extremities Exam Extremities exam: Present: normal inspection - Back Exam Back exam: Present: normal inspection, full ROM. Absent: CVA tenderness (R), CVA tenderness (L) - Neurological Exam Neurological exam: Present: alert, oriented X3, CN II-XII intact - Psychiatric Psychiatric exam: Present: normal mood - Skin Skin exam: Present: warm LEN score - Len Score Age > 65: (0) No Aspirin use within the Past 7 Days: (0) No 3 or more CAD Risk Factors: (0) No 2 or more Angina events in past 24 hrs: (1) Yes Known CAD with more than 50% Stenosis: (0) No Elevated Cardiac Markers: (1) Yes ST Deviation Greater than 0.5mm: (0) No LEN Score: 2 ED Medical Decision Making - Lab Data Result diagrams: 03/18/21 11:40 03/18/21 11:40 - EKG Data -: EKG Interpreted by Me EKG shows normal: sinus rhythm Rate: normal - EKG Data Interpretation: no acute changes - Radiology Data Radiology results: report reviewed - Medical Decision Making Patient is 65 years old male with history of end-stage renal disease on hemodialysis, hypertension and diabetes. Patient presented to the ER complaining of chest pain that started on the right side and moved across the chest. Patient stated that pain is similar to what he had before. Patient was seen here and evaluated several times for the same complaint. Recent objective diagnostic testing at this hospital Cardiac nuclear stress test, August 2020: Negative for ischemic findings. CT angiogram chest, August 2020, negative for acute findings. CT angiogram abdomen pelvis, August 2020, negative for acute findings. Noncontrast CT scan of the abdomen pelvis, November 2020, negative for acute findings. Patient stated that he went for dialysis today and because of the pain he was sent to the emergency room. Patient denied any fever or chills. No shortness of breath. EKG is unremarkable and showed no acute changes from last EKG. Chest x-ray is unremarkable. Labs reviewed and showed chronic elevation of his troponin, creatinine and BUN. Chest pain is reproducible indicating possibility of costoc hondritis. Patient given [place] in the ER and stated that his chest pain is completely resolved. Potassium is 5.6. I discussed the patient with Dr. Johnson from [facility], he advised to give the patient 30 g of Kayexalate and asked the patient to follow-up with him in the office and follow- up with dialysis. Critical care attestation.: If time is entered above; I have spent that time in minutes in the direct care of this critically ill patient, excluding procedure time. ED Disposition Clinical Impression: Hyperkalemia, End stage renal disease, Elevated troponin, Costochondritis, acute Disposition: DC-01 TO HOME OR SELFCARE Is pt being admited?: No Condition: Stable Instructions: Costochondritis, [id number], Hyperkalemia, [id number] Prescriptions: HYDROcodone/APAP 5-325 [[place] 5/325] 1 each PO Q6HR PRN #14 tablet PRN Reason: Pain Ondansetron [Zofran Odt] 4 mg PO Q8HR PRN #14 tab.rapdis PRN Reason: Nausea And Vomiting Referrals: PRIMARY CARE,MD [Primary Care Provider] - 3-5 Days
[2021-03-18] MEDS ORDERED: ONDANSETRON 4 MG ODT TAB PO ONE (13:12)
[2021-03-18] MEDS ORDERED: HYDROcodone/ACETAMINOPHEN 5-325 MG TAB PO ONE (13:12)
[2021-03-18 13:19] LABS: Total Cells Counted 100
[2021-03-18 13:20] LABS: Platelet Estimate Consistent w Auto; Target Cells 2+
[2021-03-18] MEDS ORDERED: SODIUM POLYSTYRENE 15 GM/60 ML ORAL LIQD PO ONE (16:28)
[2021-03-18 19:54] VITALS: BP 168/88
--- NOTE | 2021-03-23 09:38 | Electrocardiograph Report ---
[facility] Test Date: 2021-03-18 Test Time: 11:02:21 Pat Name: GRACY VAZQUEZ Department: Room: Gender: M Facility Planner: LIBIA LOPEZ : 1955 Requested By: KAYLA SOTO Order Number: [id number] Reading MD: Anirudh Randall Measurements Intervals [place] Rate: 66 P: 80 GA: 200 QRS: 66 QRSD: 70 T: 59 QT: 421 QTc: 440 Interpretive Statements Sinus rhythm Probable left atrial enlargement Compared to ECG 02/28/2021 02:27:59 Myocardial infarct finding no longer present Electronically Signed On 03-23-2021 9:38:19 EDT by Anirudh Randall
== END 2021-03-18 19:55 | disposition home or self-care (01) ==
LOC: ED 10:26
DX: I12.0 Hypertensive chronic kidney disease with stage 5 chronic kidney disease or end stage renal disease (principal); N18.6 End stage renal disease; E11.22 Type 2 diabetes mellitus with diabetic chronic kidney disease; M94.0 Chondrocostal junction syndrome [Tietze]; E87.5 Hyperkalemia; R77.8 Other specified abnormalities of plasma proteins; F17.200 Nicotine dependence, unspecified, uncomplicated; Z98.890 Other specified postprocedural states; Z79.899 Other long term (current) drug therapy
CPT/HCPCS: 36415; 71046; 80053; 80061; 84484; 85007; 85025; 93005; Q0162

== ENCOUNTER 2021-06-28 09:44 | Inpatient (IN) | payer MEDICARE ==
[2021-06-28] MEDS ORDERED: ASPIRIN 81 MG TAB CHEW PO ONE (10:09)
--- NOTE | 2021-06-28 10:13 | Emergency Department Report ---
ED Chest Pain HPI - General Chief Complaint: Chest Pain Stated Complaint: CHEST PAIN Time Seen by Provider: 06/28/21 10:03 Source: patient Mode of arrival: Stretcher Limitations: No Limitations - History of Present Illness Initial Comments: 66-year-old -Turkish male presents to the emergency department via EMS from dialysis after he developed substernal chest pain with about 40 minutes left in his dialysis session. It is associated with some shortness of breath, but the patient denies any fever, nausea, vomiting, back pain or diaphoresis. He did not take anything, nor receive anything, for his symptoms prior to presentation today. 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 The patient is a tobacco smoker but says that he only smokes about 1 to 2 cigarettes/day. He denies any illicit drug use or alcohol abuse/dependence. 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 No recent travel or sick contacts at home. Severity scale (0 -10): 7 - Related Data Previous Rx's Medication Instructions Recorded Last Taken Type Famotidine [Pepcid] 20 mg PO QAM #30 tablet 08/17/20 Unknown Rx Aspirin EC [Halfprin EC] 81 mg PO QDAY #30 tablet. 09/25/20 Unknown Rx Valsartan [Diovan] 160 mg PO DAILY tablet 09/25/20 Unknown Rx amLODIPine 10 mg PO QDAY #30 tablet 09/25/20 Unknown Rx carvediloL [Coreg] 12.5 mg PO BID #60 tablet 09/25/20 Unknown Rx hydrALAZINE [Apresoline TAB] 100 mg PO TID #90 tab 09/25/20 Unknown Rx oxyCODONE /ACETAMINOPHEN [Percocet 1 tab PO Q6HR PRN #10 09/25/20 Unknown Rx 5/325 mg] Docusate Sodium [Colace] 100 mg PO BID PRN #20 capsule 12/20/20 Unknown Rx Pantoprazole [Protonix TAB] 40 mg PO QDAY #30 tablet 12/20/20 Unknown Rx HYDROcodone/APAP 5-325 [[place] 1 each PO Q6HR PRN #14 tablet 03/18/21 Unknown Rx 5/325] Ondansetron [Zofran Odt] 4 mg PO Q8HR PRN #14 tab.rapdis 03/18/21 Unknown Rx Allergies Allergy/AdvReac Type Severity Reaction Status Date / Time No Known Allergies Allergy Verified 06/28/21 10:02 Heart Score - HEART Score History: Slightly suspicious EKG: Normal Age: 45-65 Risk factors: > 3 risk factors or hx of atherosclerotic disease Troponin: > 3x normal limit HEART Score: 5 - EKG Read Time Time EKG Completed: 10:00 EKG Read Time: 10:00 - Critical Actions Critical Actions: 4-6 pts:12-16.6% risk of adverse cardiac event. Should be admitted ED Review of Systems ROS: Stated complaint: CHEST PAIN Other details as noted in HPI ED Past Medical Hx - Past Medical History Hx Hypertension: Yes Hx Congestive Heart Failure: No Hx Diabetes: Yes Hx Kidney Stones: Yes (Dialysis Tues,Th,Sat) Hx Asthma: No Hx COPD: No - Surgical History Additional Surgical History: Wrist, right arm, Hip, Left arm fistula - Social History Smoking Status: Current Every Day Smoker Substance Use Type: Prescribed - Medications Home Medications: Home Medications Medication Instructions Recorded Confirmed Last Taken Type Famotidine [Pepcid] 20 mg PO QAM #30 tablet 08/17/20 03/18/21 Unknown Rx Aspirin EC [Halfprin EC] 81 mg PO QDAY #30 tablet. 09/25/20 03/18/21 Unknown Rx Valsartan [Diovan] 160 mg PO DAILY tablet 09/25/20 03/18/21 Unknown Rx amLODIPine 10 mg PO QDAY #30 tablet 09/25/20 03/18/21 Unknown Rx carvediloL [Coreg] 12.5 mg PO BID #60 tablet 09/25/20 03/18/21 Unknown Rx hydrALAZINE [Apresoline TAB] 100 mg PO TID #90 tab 09/25/20 03/18/21 Unknown Rx oxyCODONE /ACETAMINOPHEN [Percocet 1 tab PO Q6HR PRN #10 09/25/20 03/18/21 Unknown Rx 5/325 mg] Docusate Sodium [Colace] 100 mg PO BID PRN #20 capsule 12/20/20 03/18/21 Unknown Rx Pantoprazole [Protonix TAB] 40 mg PO QDAY #30 tablet 12/20/20 03/18/21 Unknown Rx HYDROcodone/APAP 5-325 [[place] 1 each PO Q6HR PRN #14 tablet 03/18/21 Unknown Rx 5/325] Ondansetron [Zofran Odt] 4 mg PO Q8HR PRN #14 tab.rapdis 03/18/21 Unknown Rx ED Physical Exam - General Limitations: No Limitations - Other Other exam information: GENERAL: The patient is well-developed well-nourished. HENT: Normocephalic. Atraumatic. Patient has moist mucous membranes. EYES: Extraocular motions are intact. NECK: Supple. Trachea is midline. CHEST/LUNGS: Clear to auscultation. There is no respiratory distress noted. HEART/CARDIOVASCULAR: Regular. There is no tachycardia. There is no murmur. ABDOMEN: Abdomen is soft, nontender. Patient has normal bowel sounds. There is no abdominal distention. SKIN: Skin is warm and dry. NEURO: The patient is awake, alert, and oriented. The patient is cooperative. The patient has no focal neurologic deficits. Normal speech. MUSCULOSKELETAL: There is no tenderness or deformity. There is no limitation range of motion. ED Course Vital Signs 06/28/21 06/28/21 06/28/21 09:58 10:09 10:18 Temperature 98.3 F Pulse Rate 63 67 Respiratory 18 15 14 Rate Blood Pressure Blood Pressure 162/76 [Right] O2 Sat by Pulse 99 98 Oximetry 06/28/21 06/28/21 06/28/21 10:30 11:00 11:30 Temperature Pulse Rate 66 63 62 Respiratory 11 L 10 L 10 L Rate Blood Pressure 151/80 169/76 180/78 Blood Pressure [Right] O2 Sat by Pulse 97 98 99 Oximetry 06/28/21 06/28/21 06/28/21 12:00 12:30 13:02 Temperature Pulse Rate 62 61 64 Respiratory 10 L 12 Rate Blood Pressure 185/81 189/83 194/86 Blood Pressure [Right] O2 Sat by Pulse 99 97 Oximetry 06/28/21 06/28/21 14:05 15:25 Temperature Pulse Rate 62 Respiratory 17 16 Rate Blood Pressure Blood Pressure 180/79 [Right] O2 Sat by Pulse 98 Oximetry - Consultations Consultation #1: 06/28/21 13:09 Patient was seen in the emergency department by [facility] cardiology. I spoke with RUBEN Short, under Dr. Pablo, and they plan to do a stress test tomorrow and will consult on the patient. LEN score - Eln Score Age > 65: (0) No Aspirin use within the Past 7 Days: (0) No 3 or more CAD Risk Factors: (1) Yes 2 or more Angina events in past 24 hrs: (1) Yes Known CAD with more than 50% Stenosis: (0) No Elevated Cardiac Markers: (1) Yes ST Deviation Greater than 0.5mm: (0) No LEN Score: 3 ED Medical Decision Making - Lab Data Result diagrams: 06/28/21 10:14 06/28/21 10:14 Lab Results 06/28/21 06/28/21 Range/Units 10:14 10:14 WBC 2.7 L (4.5-11.0) K/mm3 RBC 4.98 (3.65-5.03) M/mm3 Hgb 12.2 (11.8-15.2) gm/dl Hct 37.4 (35.5-45.6) % MCV 75 L (84-94) fl MCH 25 L (28-32) pg MCHC 33 (32-34) % RDW 21.5 H (13.2-15.2) % Plt Count 122 L (140-440) K/mm3 Lymph % (Auto) 28.1 (13.4-35.0) % [place] % (Auto) 15.2 H (0.0-7.3) % Eos % (Auto) 4.5 H (0.0-4.3) % Baso % (Auto) 1.1 (0.0-1.8) % Lymph # (Auto) 0.8 L (1.2-5.4) K/mm3 [place] # (Auto) 0.4 (0.0-0.8) K/mm3 Eos # (Auto) 0.1 (0.0-0.4) K/mm3 Baso # (Auto) 0.0 (0.0-0.1) K/mm3 Seg Neutrophils % 51.1 (40.0-70.0) % Seg Neutrophils # 1.4 L (1.8-7.7) K/mm3 Sodium 139 (137-145) mmol/L Potassium 4.2 (3.6-5.0) mmol/L Chloride 95.7 L (98-107) mmol/L Carbon Dioxide 34 H (22-30) mmol/L Anion Gap 14 mmol/L BUN 13 (9-20) mg/dL Creatinine 3.7 H (0.8-1.3) mg/dL Estimated GFR 20 ml/min BUN/Creatinine Ratio 4 % Glucose 94 (75-100) mg/dL Calcium 9.2 (8.4-10.2) mg/dL Total Bilirubin 0.90 (0.1-1.2) mg/dL AST 18 (5-40) units/L ALT 9 (7-56) units/L Alkaline Phosphatase 105 (35-129) units/L Troponin T 0.116 H* (0.00-0.029) ng/mL Total Protein 7.6 (6.3-8.2) g/dL Albumin 4.4 (3.9-5) g/dL Albumin/Globulin Ratio 1.4 % Triglycerides 124 (2-149) mg/dL Cholesterol 160 (50-199) mg/dL LDL Cholesterol Direct 90 (50-130) mg/dL HDL Cholesterol 50 (40-59) mg/dL Cholesterol/HDL Ratio 3.20 % - EKG Data -: EKG Interpreted by [place] EKG shows normal: sinus rhythm, axis, intervals, QRS complexes, ST-T waves (Borderline lateral mild ST elevation) Rate: normal - EKG Data When compared to previous EKG there are: previous EKG unavailable Interpretation: other (Sinus rhythm at 69 bpm, normal axis, normal intervals, borderline mild ST elevation to the lateral leads. No ST elevation SC.) - Radiology Data Radiology results: image reviewed interpreted by me: Chest x-ray does not show any acute process. There are no pleural effusions, obvious pneumonia and there is no pneumothorax. No widened mediastinum. - Medical Decision Making This patient presents to the emergency department with acute chest pain that started towards the end of his dialysis session. Initially it was substernal, then moved to the right side of his chest, then to the left side. EKG did not have any morphology consistent with ST elevation myocardial infarction. Chest x-ray did not show any pneumonia, pleural effusions, pneumothorax, widened mediastinum, or any other acute process. Patient's labs shows renal insufficiency consistent with his end-stage renal disease on hemodialysis. The patient has multiple elevated troponins of about 0.11 up to 0.13. This is consistent with previous visits. However the patient continues to have chest discomfort despite aspirin and IV analgesia. He has a moderate heart score. He was seen in the emergency department by the cardiology team who plan to do a stress test tomorrow. The patient has been accepted for admission by the hospitalist, Dr. Marino. Critical care attestation.: If time is entered above; I have spent that time in minutes in the direct care of this critically ill patient, excluding procedure time. ED Disposition Clinical Impression: Hypertensive urgency, NSTEMI (non-ST elevated myocardial infarction), End stage renal disease Disposition: ADMITTED INPATIENT Is pt being admited?: Yes Condition: Serious Time of Disposition: 17:49
--- NOTE | 2021-06-28 10:44 | XRay Report ---
CHEST 1 VIEW INDICATION: Chest pain. COMPARISON: 03/18/2021 FINDINGS: Support devices: None. Heart: Normal. Lungs/Pleura: No acute pulmonary or pleural findings. IMPRESSION: 1. No acute findings. Signer Name: Silvio Mcginnis MD Signed: 06/28/2021 10:39 AM Workstation Name: [email or web address]
[2021-06-28] MEDS ORDERED: MORPHINE 4 MG/1 ML INJ IV ONE (11:41)
[2021-06-28 11:46] LABS: Albumin 4.4 g/dL (3.9-5); Calcium 9.2 mg/dL (8.4-10.2)
[2021-06-28 11:58] LABS: Chol/HDL Ratio 3.2 %
[2021-06-28 12:11] LABS: Basophils % (Auto) 1.1 % (0.0-1.8); Eosinophils # (Auto) 0.1 K/mm3 (0.0-0.4); Eosinophils % (Auto) 4.5 % (0.0-4.3); Hematocrit 37.4 % (35.5-45.6); Hemoglobin 12.2 gm/dl (11.8-15.2); Lymphocytes # (Auto) 0.8 K/mm3 (1.2-5.4); Lymphocytes % (Auto) 28.1 % (13.4-35.0); Mean Corpuscular HGB Conc 33 % (32-34); Mean Corpuscular Volume 75 fl (84-94); Monocytes # (Auto) 0.4 K/mm3 (0.0-0.8); Monocytes % (Auto) 15.2 % (0.0-7.3); Platelet Count 122 K/mm3 (140-440); Red Blood Count 4.98 M/mm3 (3.65-5.03)
[2021-06-28 12:18] LABS: Red Cell Distribution Width 21.5 % (13.2-15.2)
[2021-06-28] MEDS ORDERED: hydrALAZINE 20 MG/1 ML INJ IV ONE (12:57)
[2021-06-28] MEDS ORDERED: ALBUTEROL 2.5 MG/3 ML NEBU IH PRN (13:00)
--- NOTE | 2021-06-28 13:09 | History and Physical Report ---
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 Patient reports "I am having chest pain". Patient states that he experienced pain in his chest while undergoing dialysis today. Patient states that pain is 7/10, constant, associated with shortness of breath, nonradiating, substernal. EMS was notified and the patient was subsequently transported to [facility] for further care and evaluation of the aforementioned sym ptoms. The patient was seen and evaluated in the emergency department. All lab and imaging studies reviewed. Patient found to have clinical symptoms as well as lab findings consistent with non-ST elevation [place] type II, diastolic congestive heart failure, angina at rest, and accelerated hypertension as well as end-stage renal disease. Cardiology team consulted in ED. Patient admitted to telemetry due to increased risk of worsening symptoms. Patient initiated on acute coronary syndrome protocol. Patient denies fever, chills, palpitations, productive cough, skin rash, recent ill contacts, or known exposure to COVID-19. Prior admission 09/24/2020 reviewed. All medication listed at time of admission has been reconciled. Advanced care planning conducted in ED. Past History Past Medical History: arthritis, ESRD, heart failure, hypertension, stroke Past Surgical History: Other (Dialysis access) Social history: single, smoking. denies: alcohol abuse, prescription drug abuse Family history: diabetes, hypertension Medications and Allergies Allergies Allergy/AdvReac Type Severity Reaction Status Date / Time No Known Allergies Allergy Verified 06/28/21 10:02 Home Medications Medication Instructions Recorded Confirmed Last Taken Type Famotidine [Pepcid] 20 mg PO QAM #30 tablet 08/17/20 03/18/21 Unknown Rx Aspirin EC [Halfprin EC] 81 mg PO QDAY #30 tablet. 09/25/20 03/18/21 Unknown Rx Valsartan [Diovan] 160 mg PO DAILY tablet 09/25/20 03/18/21 Unknown Rx amLODIPine 10 mg PO QDAY #30 tablet 09/25/20 03/18/21 Unknown Rx carvediloL [Coreg] 12.5 mg PO BID #60 tablet 09/25/20 03/18/21 Unknown Rx hydrALAZINE [Apresoline TAB] 100 mg PO TID #90 tab 09/25/20 03/18/21 Unknown Rx oxyCODONE /ACETAMINOPHEN [Percocet 1 tab PO Q6HR PRN #10 09/25/20 03/18/21 Unknown Rx 5/325 mg] Docusate Sodium [Colace] 100 mg PO BID PRN #20 capsule 12/20/20 03/18/21 Unknown Rx Pantoprazole [Protonix TAB] 40 mg PO QDAY #30 tablet 12/20/20 03/18/21 Unknown Rx HYDROcodone/APAP 5-325 [[place] 1 each PO Q6HR PRN #14 tablet 03/18/21 Unknown Rx 5/325] Ondansetron [Zofran Odt] 4 mg PO Q8HR PRN #14 tab.rapdis 03/18/21 Unknown Rx Review of Systems Constitutional: no weight loss, no weight gain, no fever, no chills Ears, nose, mouth and throat: no ear pain, no ear discharge, no tinnitis, no decreased hearing, no nose pain Cardiovascular: chest pain, shortness of breath, decreased exercise tolerance, no palpitations Gastrointestinal: no abdominal pain, no nausea, no vomiting, no diarrhea Genitourinary Male: no hematuria, no flank pain, no discharge, no urinary frequency, no urinary hesitancy Rectal: no pain, no incontinence, no bleeding Musculoskeletal: no neck stiffness, no neck pain, no shooting arm pain Integumentary: no rash, no pruritis, no redness, no sores, no wounds Neurological: no head injury, no transient paralysis, no weakness, no parathesias, no numbness Psychiatric: no anxiety, no memory loss, no sleep disturbances, no insomnia, no change in appetite Endocrine: no cold intolerance, no heat intolerance, no polydipsia, no polyuria, no nocturia Hematologic/Lymphatic: no easy bruising, no easy bleeding Allergic/Immunologic: no allergic rhinitis, no wheezing Exam - Constitutional Vitals: Temp Pulse Resp BP Pulse Ox 98.3 F 64 10 L 194/86 99 06/28/21 10:18 06/28/21 13:02 06/28/21 12:00 06/28/21 13:02 06/28/21 12:00 General appearance: Present: mild distress - EENT Eyes: Present: PERRL ENT: hearing intact, clear oral mucosa - Neck Neck: Present: supple, normal ROM - Respiratory Respiratory effort: normal, labored Respiratory: bilateral: diminished - Cardiovascular Heart Sounds: Present: S1 & S2. Absent: rub, click - Extremities Extremities: pulses symmetrical, No edema Peripheral Pulses: within normal limits - Abdominal General gastrointestinal: Present: soft, non-tender, non-distended, normal bowel sounds Male genitourinary: Present: normal - Integumentary Integumentary: Present: clear, warm, dry - Musculoskeletal Musculoskeletal: generalized weakness - Psychiatric Psychiatric: appropriate mood/affect, intact judgment & insight - Neurologic Neurologic: CNII-XII intact, moves all extremities HEART Score - HEART Score EKG: Normal Age: 45-65 Risk factors: > 3 risk factors or hx of atherosclerotic disease Troponin: Troponin T 0.116 ng/mL (0.00-0.029) H* 06/28/21 10:14 Results - Labs CBC & Chem 7: 06/28/21 10:14 06/28/21 10:14 Labs: Abnormal lab results 06/28/21 06/28/21 Range/Units 10:14 10:14 WBC 2.7 L (4.5-11.0) K/mm3 MCV 75 L (84-94) fl MCH 25 L (28-32) pg RDW 21.5 H (13.2-15.2) % Plt Count 122 L (140-440) K/mm3 [place] % (Auto) 15.2 H (0.0-7.3) % Eos % (Auto) 4.5 H (0.0-4.3) % Lymph # (Auto) 0.8 L (1.2-5.4) K/mm3 Seg Neutrophils # 1.4 L (1.8-7.7) K/mm3 Chloride 95.7 L (98-107) mmol/L Carbon Dioxide 34 H (22-30) mmol/L Creatinine 3.7 H (0.8-1.3) mg/dL Troponin T 0.116 H* (0.00-0.029) ng/mL Assessment and Plan - Patient Problems (1) NSTEMI (non-ST elevated myocardial infarction) Current Visit: Yes Status: Acute Plan to address problem: ACS protocol: Cardiology team consulted in ED, serial cardiac enzymes, EKG, remote telemetry, aspirin, morphine, supplemental oxygen, nitro, stress test in a.m. as per cardiology team. (2) Diastolic CHF Current Visit: Yes Status: Acute Qualifiers: Heart failure chronicity: acute on chronic Qualified Code(s): I50.33 - Acute on chronic diastolic (congestive) heart failure Plan to address problem: Strict I/O, monitor urine output every shift, daily weight, afterload reduction, blood pressure control, supplemental oxygen, echocardiogram 09/18 reviewed. (3) Angina at rest Current Visit: Yes Status: Acute Plan to address problem: Serial cardiac enzymes, EKG, remote telemetry, (4) Accelerated hypertension Current Visit: Yes Status: Acute Plan to address problem: Monitor blood pressure every shift, continue medical management, resume prehospital antihypertensive therapy. (5) End stage renal disease Current Visit: Yes Status: Acute Plan to address problem: Nephrology team consulted in ED, dialysis as per renal team. (6) DVT prophylaxis Current Visit: Yes Status: Acute Plan to address problem: SCD to bilateral lower extremities while in bed, patient is ambulatory (7) Advance care planning Current Visit: Yes Status: Acute Plan to address problem: Disease education conducted, care plan discussed, diagnoses discussed, prognosis discussed, patient is full code, patient knowledges understanding agreement with care plan, +30 minutes.
[2021-06-28] MEDS ORDERED: ACETAMINOPHEN 325 MG TAB PO PRN ×2 (13:10→14:00)
[2021-06-28] MEDS ORDERED: ONDANSETRON 4 MG ODT TAB PO PRN (14:00)
[2021-06-28] MEDS ORDERED: DOCUSATE SODIUM 100 MG CAP PO PRN (14:00)
[2021-06-28] MEDS ORDERED: NITROGLYCERIN 0.4 MG TAB SUBL SL PRN (14:00)
[2021-06-28] MEDS ORDERED: ONDANSETRON 4 MG/2 ML INJ IV PRN (14:00)
[2021-06-28] MEDS ORDERED: traMADol 50 MG TAB PO PRN (14:00)
[2021-06-28] MEDS ORDERED: oxyCODONE /ACETAMINOPHEN 5-325MG TAB PO PRN (14:00)
[2021-06-28] MEDS: HYDROmorphone 1 MG/1 ML INJ IV PRN ×2 (15:25→22:48)
[2021-06-28] MEDS: hydrALAZINE 100 MG TAB PO SCH ×2 (15:26→20:49)
--- NOTE | 2021-06-28 16:36 | Consultation ---
History of Present Illness Consult date: 06/28/21 Requesting physician: CARMEN ARCHULETA History of present illness: 66 y/o male with a pmhx of HTN, ESRD on HD, DM h/o CVA presents to ED with complaint of chest pain that started today during his dialysis session. He describes the pain as pressure that occurs substernally and rates the pain as 6/10. He says the pain is also associated with SOB. He denies any other associated symptoms or anything to relieve the pain. Pain is reproducible with palpation of his chest. ED work up shows troponins 0.11->0.12 however this tends to be around patients baseline. Patient KC=892/79 and CXR shows no acute findings. The patient is followed by Dr. Pablo of our practice. Cardiology is consulted for chest pain/ NSTEMI. Past History Past Medical History: arthritis, ESRD, heart failure, hypertension, stroke Past Surgical History: Other (Dialysis access) Social history: single, smoking. denies: alcohol abuse, prescription drug abuse Family history: diabetes, hypertension Medications and Allergies Allergies Allergy/AdvReac Type Severity Reaction Status Date / Time No Known Allergies Allergy Verified 06/28/21 10:02 Home Medications Medication Instructions Recorded Confirmed Last Taken Type Famotidine [Pepcid] 20 mg PO QAM #30 tablet 08/17/20 03/18/21 Unknown Rx Aspirin EC [Halfprin EC] 81 mg PO QDAY #30 tablet. 09/25/20 03/18/21 Unknown Rx Valsartan [Diovan] 160 mg PO DAILY tablet 09/25/20 03/18/21 Unknown Rx amLODIPine 10 mg PO QDAY #30 tablet 09/25/20 03/18/21 Unknown Rx carvediloL [Coreg] 12.5 mg PO BID #60 tablet 09/25/20 03/18/21 Unknown Rx hydrALAZINE [Apresoline TAB] 100 mg PO TID #90 tab 09/25/20 03/18/21 Unknown Rx oxyCODONE /ACETAMINOPHEN [Percocet 1 tab PO Q6HR PRN #10 09/25/20 03/18/21 Unknown Rx 5/325 mg] Docusate Sodium [Colace] 100 mg PO BID PRN #20 capsule 12/20/20 03/18/21 Unknown Rx Pantoprazole [Protonix TAB] 40 mg PO QDAY #30 tablet 12/20/20 03/18/21 Unknown Rx HYDROcodone/APAP 5-325 [[place] 1 each PO Q6HR PRN #14 tablet 03/18/21 Unknown Rx 5/325] Ondansetron [Zofran Odt] 4 mg PO Q8HR PRN #14 tab.rapdis 03/18/21 Unknown Rx Active Meds: Active Medications Acetaminophen (Acetaminophen 325 Mg Tab) 650 mg PO Q4H PRN PRN Reason: Pain MILD(1-3)/Fever >100.5/[place] Albuterol (Albuterol 2.5 Mg/3 Ml Nebu) 2.5 mg IH Q4HRT PRN PRN Reason: Shortness Of Breath Amlodipine Besylate (Amlodipine 10 Mg Tab) 10 mg PO QDAY [facility] Aspirin (Aspirin Ec 81 Mg Tab) 81 mg PO QDAY [facility] Carvedilol (Carvedilol 12.5 Mg Tab) 12.5 mg PO BID [facility] Docusate Sodium (Docusate Sodium 100 Mg Cap) 100 mg PO BID PRN PRN Reason: Constipation Hydralazine HCl (Hydralazine 100 Mg Tab) 100 mg PO TID [facility] Last Admin: 06/28/21 15:26 Dose: 100 mg Documented by: Hydromorphone HCl (Hydromorphone 1 Mg/1 Ml Inj) 0.5 mg IV Q23H PRN PRN Reason: Pain , Severe (7-10) Last Admin: 06/28/21 15:25 Dose: 0.5 mg Documented by: Nitroglycerin (Nitroglycerin 0.4 Mg Tab Subl) 0.4 mg SL Q5M PRN PRN Reason: Chest Pain Ondansetron HCl (Ondansetron 4 Mg/2 Ml Inj) 4 mg IV Q8H PRN PRN Reason: Nausea And Vomiting Ondansetron HCl (Ondansetron 4 Mg Odt Tab) 4 mg PO Q8HR PRN PRN Reason: Nausea And Vomiting Oxycodone/Acetaminophen (Oxycodone /Acetaminophen 5-325mg Tab) 1 tab PO Q16H PRN PRN Reason: Pain, Moderate (4-6) Pantoprazole Sodium (Pantoprazole 40 Mg Tab) 40 mg PO QDAY [facility] Sodium Chloride (Sodium Chloride 0.9% 10 Ml Flush Syringe) 10 ml IV BID [facility] Sodium Chloride (Sodium Chloride 0.9% 10 Ml Flush Syringe) 10 ml IV PRN PRN PRN Reason: LINE FLUSH Sodium Chloride (Sodium Chloride 0.9% 10 Ml Flush Syringe) 10 ml IV PRN PRN PRN Reason: LINE FLUSH Tramadol HCl (Tramadol 50 Mg Tab) 50 mg PO Q6H PRN PRN Reason: Pain, Moderate (4-6) Valsartan (Valsartan 160mg Tab) 160 mg PO DAILY [facility] Review of Systems All systems: negative Constitutional: no weight loss, no weight gain, no fever, no chills Ears, nose, mouth and throat: no nose pain, no nasal congestion, no nasal discharge, no sinus pressure Cardiovascular: chest pain, shortness of breath, no orthopnea, no palpitations, no rapid/irregular heart beat, no edema, no lightheadedness Respiratory: shortness of breath, no cough, no cough with sputum, no excessive sputum Gastrointestinal: no abdominal pain, no nausea, no vomiting, no diarrhea Musculoskeletal: no neck pain, no shooting arm pain, no arm numbness/tingling, no low back pain Integumentary: no rash, no pruritis, no redness, no sores Neurological: no head injury, no transient paralysis, no paralysis Psychiatric: no anxiety, no memory loss Endocrine: no cold intolerance, no heat intolerance Hematologic/Lymphatic: no easy bruising, no easy bleeding Physical Examination Last Vital Signs Temp 98.3 F 06/28/21 10:18 Pulse 62 06/28/21 14:05 Resp 16 06/28/21 15:25 BP 180/79 06/28/21 14:05 Pulse Ox 98 06/28/21 14:05 General appearance: no acute distress HEENT: Positive: PERRL Neck: Positive: trachea midline Cardiac: Positive: Reg Rate and Rhythm Lungs: Positive: clear to auscultation, Normal Breath Sounds Neuro: Positive: Grossly Intact Abdomen: Positive: Soft, Active Bowel Sounds Skin: Negative: Rash, Suspicious Lesions, Ulceration Extremities: Present: upper extr. pulses, lower extr. pulses. Absent: edema Results 06/28/21 10:14 06/28/21 10:14 Cardiac Enzymes 06/28/21 06/28/21 06/28/21 Range/Units 10:14 10:14 13:28 WBC 2.7 L (4.5-11.0) K/mm3 RBC 4.98 (3.65-5.03) M/mm3 Hgb 12.2 (11.8-15.2) gm/dl Hct 37.4 (35.5-45.6) % MCV 75 L (84-94) fl MCH 25 L (28-32) pg MCHC 33 (32-34) % RDW 21.5 H (13.2-15.2) % Plt Count 122 L (140-440) K/mm3 Lymph % (Auto) 28.1 (13.4-35.0) % [place] % (Auto) 15.2 H (0.0-7.3) % Eos % (Auto) 4.5 H (0.0-4.3) % Baso % (Auto) 1.1 (0.0-1.8) % Lymph # (Auto) 0.8 L (1.2-5.4) K/mm3 [place] # (Auto) 0.4 (0.0-0.8) K/mm3 Eos # (Auto) 0.1 (0.0-0.4) K/mm3 Baso # (Auto) 0.0 (0.0-0.1) K/mm3 Seg Neutrophils % 51.1 (40.0-70.0) % Seg Neutrophils # 1.4 L (1.8-7.7) K/mm3 Sodium 139 (137-145) mmol/L Potassium 4.2 (3.6-5.0) mmol/L Chloride 95.7 L (98-107) mmol/L Carbon Dioxide 34 H (22-30) mmol/L Anion Gap 14 mmol/L BUN 13 (9-20) mg/dL Creatinine 3.7 H (0.8-1.3) mg/dL Estimated GFR 20 ml/min BUN/Creatinine Ratio 4 % Glucose 94 (75-100) mg/dL Calcium 9.2 (8.4-10.2) mg/dL Total Bilirubin 0.90 (0.1-1.2) mg/dL AST 18 (5-40) units/L ALT 9 (7-56) units/L Alkaline Phosphatase 105 (35-129) units/L Troponin T 0.116 H* 0.127 H* (0.00-0.029) ng/mL Total Protein 7.6 (6.3-8.2) g/dL Albumin 4.4 (3.9-5) g/dL Albumin/Globulin Ratio 1.4 % Triglycerides 124 (2-149) mg/dL Cholesterol 160 (50-199) mg/dL LDL Cholesterol Direct 90 (50-130) mg/dL HDL Cholesterol 50 (40-59) mg/dL Cholesterol/HDL Ratio 3.20 % Lipids 06/28/21 Range/Units 10:14 Triglycerides 124 (2-149) mg/dL Cholesterol 160 (50-199) mg/dL HDL Cholesterol 50 (40-59) mg/dL Cholesterol/HDL Ratio 3.20 % CBC 06/28/21 Range/Units 10:14 WBC 2.7 L (4.5-11.0) K/mm3 RBC 4.98 (3.65-5.03) M/mm3 Hgb 12.2 (11.8-15.2) gm/dl Hct 37.4 (35.5-45.6) % Plt Count 122 L (140-440) K/mm3 Lymph # (Auto) 0.8 L (1.2-5.4) K/mm3 [place] # (Auto) 0.4 (0.0-0.8) K/mm3 Eos # (Auto) 0.1 (0.0-0.4) K/mm3 Baso # (Auto) 0.0 (0.0-0.1) K/mm3 Comprehensive Metabolic Panel 06/28/21 Range/Units 10:14 Sodium 139 (137-145) mmol/L Potassium 4.2 (3.6-5.0) mmol/L Chloride 95.7 L (98-107) mmol/L Carbon Dioxide 34 H (22-30) mmol/L BUN 13 (9-20) mg/dL Creatinine 3.7 H (0.8-1.3) mg/dL Glucose 94 (75-100) mg/dL Calcium 9.2 (8.4-10.2) mg/dL AST 18 (5-40) units/L ALT 9 (7-56) units/L Alkaline Phosphatase 105 (35-129) units/L Total Protein 7.6 (6.3-8.2) g/dL Albumin 4.4 (3.9-5) g/dL - Imaging and Cardiology Echo: report reviewed Cardiac cath: report reviewed EKG: report reviewed, image reviewed EKG interpretations - Telemetry EKG Rhythm: Sinus Rhythm - EKG Sinus rhythms and dysrhythmias: sinus rhythm Assessment and Plan 66 y/o male with a pmhx of HTN, ESRD on HD, DM h/o CVA Chest pain HTN * EKG shows sinus 69 with no acute ischemic changes. Troponins 0.11->0.12 but this appears to be patients baseline. Chest pain is reproducible with palpation. Patient appears euvolemic on exam with clear lung sounds and no BLE edema * Echo 09/22/2020-EF 55 to 60%, mild to moderate left ventricular hypertrophy, abnormal left ventriculardiastolic filling consistent with impaired relaxation, right ventricular systolic function is normal left and right atrium normal in size. * Lexiscan MPI Stress test 09/22/2020- negative for signs of ischemia ESRD on HD * Management per primary team Plan: Patient for stress test in AM. NPO after midnight. Agree with resuming home medications Patient seen in conjunction with Dr. Marcus who agrees with this plan of care. Will continue to follow. - Patient Problems (1) Hypertensive urgency Current Visit: No Status: Acute (2) Chest pain Current Visit: No Status: Acute Qualifiers: Chest pain type: unspecified Qualified Code(s): R07.9 - Chest pain, unspecified (3) End stage renal disease on dialysis Current Visit: No Status: Chronic (4) Chronic pain Current Visit: No Status: Chronic Qualifiers: Chronic pain type: chronic pain syndrome Qualified Code(s): G89.4 - Chronic pain syndrome (5) Nicotine dependence Current Visit: No Status: Acute Qualifiers: Nicotine product type: cigarettes Substance use status: in withdrawal Qualified Code(s): F17.213 - Nicotine dependence, cigarettes, with withdrawal (6) Elevated troponin Current Visit: No Status: Acute
[2021-06-28] MEDS ORDERED: diphenhydrAMINE 50 MG/ML VIAL IV ONE (22:00)
[2021-06-28] MEDS: carvediloL 12.5 MG TAB PO SCH (22:45)
[2021-06-29] MEDS ORDERED: diphenhydrAMINE 50 MG/ML VIAL IV ONE (00:25)
[2021-06-29] MEDS ORDERED: REGADENOSON 0.4 MG/5 ML INJ IV ONE ×2 (06:38→06:40)
[2021-06-29] MEDS ORDERED: FAMOTIDINE 20 MG TAB PO SCH (10:00)
[2021-06-29] MEDS ORDERED: VALSARTAN 160MG TAB PO SCH (10:00)
[2021-06-29] MEDS ORDERED: ASPIRIN EC 81 MG TAB PO SCH (10:00)
[2021-06-29] MEDS ORDERED: PANTOPRAZOLE 40 MG TAB PO SCH (10:00)
[2021-06-29] MEDS ORDERED: amLODIPine 10 MG TAB PO SCH (10:00)
[2021-06-29] MEDS: carvediloL 12.5 MG TAB PO SCH (10:21)
[2021-06-29] MEDS: hydrALAZINE 100 MG TAB PO SCH ×2 (10:22→15:44)
--- NOTE | 2021-06-29 11:30 | Nuclear Medicine Report ---
APPROVED REPORT Exam: Nuclear Stress Test Indication: Chest pain BMI: 0 Stress Test Details HR Max Heart Rate (APMHR): 155 bpm Target HR (85% APMHR): 131 bpm BP ECG Resting ECG: Sinus Rhythm Stress ECG: Sinus Rhythm ST Change: None Arrhythmia: None Recovery ECG: Sinus Rhythm Recovery ST Change: None Recovery Arrhythmia: None Stress ECG Conclusion Resting EKG showed S.Rwith minor repolarization abnormalities.No EKG changes or arrhythmia with vasodilation. NM EXAM: Myocardial Perfusion REST/STRESS Imaging Protocol: Rest Tc-99m/Stress Tc-99m 1 day Resting Data Rest SPECT myocardial perfusion imaging was performed in supine position 45 minutes following the intravenous injection of 10 mCi of Tc-99m Myoview. Time of rest injection: 0700 Pharmacologic Stress Pharmacologic stress test was performed by injecting Regadenoson 0.4 mg IV push followed by the intravenous injection of 28 mCi of Tc-99m Myoview. Time of stress injection: 0927 Gated Stress SPECT was performed 30 minutes after stress injection. The images were gated to evaluate regional wall motion and calculate left ventricular ejection fraction. Study Quality Study: excellent Lung Uptake: Normal Study Data TID = 1.02. Perfusion Wall Motion The rest and stress images show normal left ventricular wall motion.LVEF was calculated to be 67%. Nuclear Conclusion ECG Findings: negative for ischemia Clinical Findings: negative for ischemia Nuclear Findings: negative for ischemia Exercise Capacity: not assessed Left Ventricular Function: normal Risk Study: low Normal study. No scintigraphic evidence for myocardial ischemia or scar. Conclusion Resting EKG showed S.Rwith minor repolarization abnormalities.No EKG changes or arrhythmia with vasodilation.
[2021-06-29] MEDS ORDERED: PNEUMOCOCCAL 23 Valent 0.5 ML VIAL IM ONE (12:00)
--- NOTE | 2021-06-29 12:38 | Progress Note ---
Assessment and Plan Lexiscan stress MPI this AM revealed no evidence of significant ischemia. Continue present antihypertensive regimen. Otherwise stable cardiac status. No objection to discharge from a Cardiology standpoint. Follow-up with Dr. Pablo in 1-2 weeks ([phone]). Pt seen in conjunction with Dr. Pablo, who agrees with the assessment and plan of care. - Patient Problems (1) Chest pain Current Visit: Yes Status: Acute Qualifiers: Qualified Code(s): R07.9 - Chest pain, unspecified (2) NSTEMI (non-ST elevated myocardial infarction) Current Visit: Yes Status: Acute Plan to address problem: Type 2 (3) Accelerated hypertension Current Visit: Yes Status: Acute (4) ESRD on hemodialysis Current Visit: Yes Status: Chronic (5) DM2 (diabetes mellitus, type 2) Current Visit: Yes Status: Chronic (6) H/O: CVA (cerebrovascular accident) Current Visit: Yes Status: Chronic (7) Tobacco abuse Current Visit: Yes Status: Chronic Subjective Date of service: 06/29/21 Principal diagnosis: NSTEMI Type 2 Interval history: Seen in stress lab this AM. No new complaints. Still with some mild chest disc omfort intermittently. Tele reviewed - SR 70s, no events since admission. Objective Last Vital Signs Temp 98.3 F 06/29/21 12:00 Pulse 69 06/29/21 12:00 Resp 16 06/29/21 12:00 BP 153/79 06/29/21 12:00 Pulse Ox 97 06/29/21 12:00 - Physical Examination General: No Apparent Distress HEENT: Positive: EOMI, Normocephaly Neck: Positive: neck supple, trachea midline. Negative: JVD/HJR Cardiac: Positive: Reg Rate and Rhythm, S1/S2. Negative: Audible Murmur Lungs: Positive: Decreased Breath Sounds Neuro: Positive: Grossly Intact Abdomen: Positive: Soft. Negative: Tender Skin: Negative: Rash Musculoskeletal: No Pain Extremities: Present: lower extr. pulses. Absent: edema - Imaging and Cardiology EKG: report reviewed, image reviewed Pharmacologic stress test: report reviewed (08/2020 - negative for ischemia) Echo: report reviewed (08/2020 - EF 55-60%, mild-mod LVH, impaired LV relaxation, mild TR, RVSP 40mmHg) - Telemetry EKG Rhythm: Sinus Rhythm - EKG Sinus rhythms and dysrhythmias: sinus rhythm
[2021-06-29 13:22] VITALS: BP 153/79
--- NOTE | 2021-06-29 15:09 | Discharge Summary ---
Providers - Providers Date of Admission: 06/28/21 13:10 Date of discharge: 06/29/21 Attending physician: JOHANA BRADFORD 06/28/21 Consult to Cardiac Rehabilitation [CONS] Routine Reason For Exam: Phase I 06/28/21 13:08 Consult to Cardiology [CONS] Routine Consulting Provider: MARCIANO LOPEZ Reason For Exam: Chest pain, NSTEMI Primary care physician: DIE INSPECTOR Hospitalization Condition: Serious Pertinent studies: CXR, MPI stress test Hospital course: 66 y/o male with a pmhx of HTN, ESRD on HD, DM h/o CVA presents to ED with complaint of chest pain that started during his dialysis session. Pain is reproducible with palpation of his chest. ED work up shows troponins 0.11->0.12 however this tends to be around patients baseline. Patient YB=426/79 and CXR shows no acute findings. The patient is followed by Dr. Lopez of our practice. Cardiology is consulted for chest pain/ NSTEMI. EKG showed sinus 69 with no acute ischemic changes. Troponins 0.11->0.12 but this appears to be patients baseline. Echo obtained last year 09/22/2020 showed EF 55 to 60%, Lexiscan MPI Stress test negative for signs of ischemia. BP medications were adjusted, cardiology cleared for discharge. Patient was then discharged home with outpt followup Disposition: 01 HOME / SELF CARE / HOMELESS Final Discharge Diagnosis (Prints w/discharge instructions): (1) Hypertensive urgency. Current Visit: No Status: Acute. (2) Chest pain, likely GERD. Current Visit: No Status: Acute. Qualifiers: Chest pain type: unspecified Qualified Code(s): R07.9 - Chest pain, unspecified. (3) End stage renal disease on dialysis. Current Visit: No Status: Chronic. (4) Chronic pain. Current Visit: No Status: Chronic. Qualifiers: Chronic pain type: chronic pain syndrome Qualified Code(s): G89.4 - Chronic pain syndrome. (5) Nicotine dependence. Current Visit: No Status: Acute. Qualifiers: Nicotine product type: cigarettes Substance use status: in withdrawal Qualified Code(s): F17.213 - Nicotine dependence, cigarettes, with withdrawal. (6) Elevated troponin. Current Visit: No Status: Acute Time spent for discharge: 34 minutes Core Measure Documentation - Palliative Care Palliative Care/ Comfort Measures: Not Applicable - Core Measures Any of the following diagnoses?: none Exam - Physical Exam Narrative exam: GENERAL: well-developed and well-nourished elderly -Cub[place] male lying on bed appeared to be in no discomfort. HEENT: Normocephalic. Atraumatic. No conjunctival congestion or icterus. Patient has moist mucous membranes. NECK: Supple. Trachea midline. CHEST/LUNGS: Clear to auscultated bilaterally, breathing nonlabored. No wheezes crackles or rhonchi. HEART/CARDIOVASCULAR: Regular in rate and rhythm. S1 and S2 positive. ABDOMEN: Abdomen is soft, nontender. Patient has normal bowel sounds. SKIN: There is no rash. Warm and dry. NEURO: No focal motor deficit. Follows command. MUSCULOSKELETAL: No joint effusion or tenderness. EXTRIMITY: No edema, no cyanosis or clubbing. PSYCH: Cooperative. - Constitutional Vitals: Temp Pulse Resp BP Pulse Ox 98.3 F 69 16 153/79 97 06/29/21 12:00 06/29/21 12:00 06/29/21 12:00 06/29/21 12:00 06/29/21 12:00 Plan Activity: advance as tolerated Weight Bearing Status: Weight Bear as Tolerated Diet: renal Additional Instructions: Resume hemodialysis per outpatient schedule. Follow-up with PCP in 1 week Follow up with: TAHIRA ALVES MD [Primary Care Provider] - 7 Days
--- NOTE | 2021-07-03 14:18 | Electrocardiograph Report ---
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
--- NOTE | 2021-07-03 14:34 | Electrocardiograph Report ---
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
== END 2021-06-29 17:40 | disposition home or self-care (01) | DRG 280 ==
LOC: ED 09:44 → 4A 13:10
PROVIDERS: ADMIT Internal Medicine; ATTEND Internal Medicine
DX: I13.2 Hypertensive heart and chronic kidney disease with heart failure and with stage 5 chronic kidney disease, or end stage renal disease (principal); N18.6 End stage renal disease; I21.A1 Myocardial infarction type 2; I50.33 Acute on chronic diastolic (congestive) heart failure; K21.9 Gastro-esophageal reflux disease without esophagitis; I16.0 Hypertensive urgency; E11.22 Type 2 diabetes mellitus with diabetic chronic kidney disease; F17.200 Nicotine dependence, unspecified, uncomplicated; Z79.82 Long term (current) use of aspirin; Z83.3 Family history of diabetes mellitus; Z82.49 Family history of ischemic heart disease and other diseases of the circulatory system; Z86.73 Personal history of transient ischemic attack (TIA), and cerebral infarction without residual deficits
CPT/HCPCS: 36415; 71045; 78452; 80053; 80061; 82962; 84484; 85025; 93005; 93017; G0378; A9502; J0360; J1170; J1200; J2270; J2785

== ENCOUNTER 2021-08-10 16:04 | Emergency (ER) | payer MEDICARE ==
[2021-08-10] MEDS ORDERED: KETOROLAC 30 MG/1 ML INJ IV ONE (17:43)
[2021-08-10] MEDS ORDERED: FAMOTIDINE 20 MG/2 ML INJ IV ONE (17:43)
[2021-08-10 18:17] LABS: Hemoglobin 10.4 gm/dl (11.8-15.2); Mean Corpuscular HGB Conc 32 % (32-34); Mean Corpuscular Volume 75 fl (84-94); Platelet Count 113 K/mm3 (140-440); Red Cell Distribution Width 19.3 % (13.2-15.2)
[2021-08-10 18:32] LABS: Albumin 4.3 g/dL (3.9-5); Calcium 8.8 mg/dL (8.4-10.2)
[2021-08-10] MEDS ORDERED: ACETAMINOPHEN 325 MG TAB PO ONE (18:44)
[2021-08-10 18:49] LABS: Chol/HDL Ratio 5.24 %
--- NOTE | 2021-08-10 19:32 | Emergency Department Report ---
ED General Adult HPI - General Chief complaint: Headache Stated complaint: HEADACHE X 3DAYS Time Seen by Provider: 08/10/21 17:36 Source: patient Mode of arrival: Stretcher Limitations: No Limitations - History of Present Illness Initial comments: Patient is a 66-year-old F Afghan male with past medical history of hypertension diabetes end-stage renal disease who is presenting with multiple complaints. Patient states that for the past several months he has had daily right-sided chest pain which then radiates to the left side down through his abdomen and his left leg. This is not a new finding the patient states this is been present daily over the last several months. Patient has had several visits to the emergency department over the last several months for chest pain. Last of which was in May 2021 and the patient did have a Lexiscan stress test which was negative. Patient chronically has elevated troponin secondary to his end-stage renal disease. Patient also complaining of a mild headache. Pain is estimated 6 out of 10 in severity. Denies nausea vomiting diarrhea. Is no exertional component or pleuritic component to the patient's pain. Patient states that the pain is the same daily. Severity scale (0 -10): 5 - Related Data Previous Rx's Medication Instructions Recorded Last Taken Type Aspirin EC [Halfprin EC] 81 mg PO QDAY #30 tablet. 09/25/20 06/28/21 Rx Valsartan [Diovan] 160 mg PO DAILY tablet 09/25/20 06/28/21 Rx amLODIPine 10 mg PO QDAY #30 tablet 09/25/20 06/28/21 Rx carvediloL [Coreg] 12.5 mg PO BID #60 tablet 09/25/20 06/28/21 Rx hydrALAZINE [Apresoline TAB] 100 mg PO TID #90 tab 09/25/20 06/28/21 Rx Docusate Sodium [Colace CAP] 100 mg PO BID PRN #20 capsule 12/20/20 06/28/21 Rx Pantoprazole [Protonix TAB] 40 mg PO QDAY #30 tablet 12/20/20 06/28/21 Rx Ondansetron [Zofran ODT TAB] 4 mg PO Q8HR PRN #14 tab.rapdis 03/18/21 Unknown Rx Dicyclomine [Bentyl] 20 mg PO QID #20 tablet 08/10/21 Unknown Rx Allergies Allergy/AdvReac Type Severity Reaction Status Date / Time No Known Allergies Allergy Verified 08/10/21 16:53 ED Review of Systems ROS: Stated complaint: HEADACHE X 3DAYS Other details as noted in HPI Comment: All other systems reviewed and negative ED Past Medical Hx - Past Medical History Hx Hypertension: Yes Hx Congestive Heart Failure: Yes Hx Diabetes: Yes Hx Renal Disease: Yes Hx Kidney Stones: Yes (Dialysis MWF) Hx Asthma: No Hx COPD: No Additional medical history: hemodialysis m/w/f - Surgical History Additional Surgical History: Wrist, right arm, Hip, Left arm fistula - Social History Smoking Status: Current Every Day Smoker - Medications Home Medications: Home Medications Medication Instructions Recorded Confirmed Last Taken Type Aspirin EC [Halfprin EC] 81 mg PO QDAY #30 tablet. 09/25/20 06/28/21 06/28/21 Rx Valsartan [Diovan] 160 mg PO DAILY tablet 09/25/20 06/28/21 06/28/21 Rx amLODIPine 10 mg PO QDAY #30 tablet 09/25/20 06/28/21 06/28/21 Rx carvediloL [Coreg] 12.5 mg PO BID #60 tablet 09/25/20 06/28/21 06/28/21 Rx hydrALAZINE [Apresoline TAB] 100 mg PO TID #90 tab 09/25/20 06/28/21 06/28/21 Rx Docusate Sodium [Colace CAP] 100 mg PO BID PRN #20 capsule 12/20/20 06/28/21 06/28/21 Rx Pantoprazole [Protonix TAB] 40 mg PO QDAY #30 tablet 12/20/20 06/28/21 06/28/21 Rx Ondansetron [Zofran ODT TAB] 4 mg PO Q8HR PRN #14 tab.rapdis 03/18/21 06/28/21 Unknown Rx Dicyclomine [Bentyl] 20 mg PO QID #20 tablet 08/10/21 Unknown Rx ED Physical Exam - General Limitations: No Limitations General appearance: alert, in no apparent distress - Head Head exam: Present: atraumatic, normocephalic - Eye Eye exam: Present: normal appearance, PERRL, EOMI - ENT ENT exam: Present: mucous membranes moist - Neck Neck exam: Present: normal inspection - Respiratory Respiratory exam: Present: normal lung sounds bilaterally. Absent: respiratory distress, wheezes, rales, rhonchi - Cardiovascular Cardiovascular Exam: Present: regular rate, normal rhythm, normal heart sounds. Absent: systolic murmur, diastolic murmur, rubs, gallop - GI/Abdominal GI/Abdominal exam: Present: soft, normal bowel sounds. Absent: distended, t enderness, guarding, rebound - Rectal Rectal exam: Present: deferred - Extremities Exam Extremities exam: Present: normal inspection - Back Exam Back exam: Present: normal inspection - Neurological Exam Neurological exam: Present: alert, oriented X3 - Psychiatric Psychiatric exam: Present: normal affect, normal mood - Skin Skin exam: Present: warm, dry, intact, normal color. Absent: rash ED Course Vital Signs 08/10/21 08/10/21 16:05 18:33 Pulse Rate 60 Respiratory 12 Rate Blood Pressure 160/72 [Right] O2 Sat by Pulse 99 100 Oximetry ED Medical Decision Making - Lab Data Result diagrams: 08/10/21 18:01 08/10/21 18:01 Lab Results 08/10/21 08/10/21 08/10/21 Range/Units 18:01 18:01 18:01 WBC 2.3 L (4.5-11.0) K/mm3 RBC 4.40 (3.65-5.03) M/mm3 Hgb 10.4 L (11.8-15.2) gm/dl Hct 33.0 L (35.5-45.6) % MCV 75 L (84-94) fl MCH 24 L (28-32) pg MCHC 32 (32-34) % RDW 19.3 H (13.2-15.2) % Plt Count 113 L (140-440) K/mm3 Seg Neutrophils % Basket Hand Braider Sodium 135 L (137-145) mmol/L Potassium 4.8 (3.6-5.0) mmol/L Chloride 94.5 L (98-107) mmol/L Carbon Dioxide 24 (22-30) mmol/L Anion Gap 21 mmol/L BUN 49 H (9-20) mg/dL Creatinine 9.2 H (0.8-1.3) mg/dL Estimated GFR 7 ml/min BUN/Creatinine Ratio 5 % Glucose 94 (75-100) mg/dL Calcium 8.8 (8.4-10.2) mg/dL Total Bilirubin 0.30 (0.1-1.2) mg/dL AST 19 (5-40) units/L ALT 8 (7-56) units/L Alkaline Phosphatase 93 (35-129) units/L Troponin T 0.153 H* (0.00-0.029) ng/mL Total Protein 7.4 (6.3-8.2) g/dL Albumin 4.3 (3.9-5) g/dL Albumin/Globulin Ratio 1.4 % Triglycerides 218 H (2-149) mg/dL Cholesterol 194 (50-199) mg/dL LDL Cholesterol Direct 103 (50-130) mg/dL HDL Cholesterol 37 L (40-59) mg/dL Cholesterol/HDL Ratio 5.24 % Lipase 65 H (13-60) units/L - EKG Data -: EKG Interpreted by Fl - EKG Data 08/10/21 19:31 6 patient is EKG shows a sinus bradycardia rate of 54. Dawson is normal intervals are normal. Q waves in V1 and V2. No ST segment elevations or depressions. Time of interpretation 1818. Compared this with previous EKGs and there is no significant change. - Radiology Data Abdominal series with chest x-ray shows no evidence of fluid overload. Patient has multiple loops of bowel gas but no evidence of any obstruction. - Medical Decision Making Patient is a 66-year-old male who is presenting with fatigue headache and chronic chest and abdomen pain over the last 2 to 3 months. Patient has had negative cardiac work-ups. Did stress to the patient that he needs to follow-up with his primary care physician and not miss dialysis. Patient states he has all of his medications. We will discharge the patient with follow-up with primary care. Critical care attestation.: If time is entered above; I have spent that time in minutes in the direct care of this critically ill patient, excluding procedure time. ED Disposition Clinical Impression: End stage renal disease, Hypertensive urgency, Headache, Chronic pain Disposition: HOME / SELF CARE / HOMELESS Is pt being admited?: No Does the pt Need Aspirin: No Condition: Stable Instructions: Chronic Pain, Adult Referrals: PRIMARY CARE, [Primary Care Provider] - 3-5 Days Time of Disposition: 19:53
[2021-08-10 19:40] LABS: Total Cells Counted 100
[2021-08-10 19:41] LABS: Anisocytosis RARE; Hypochromasia 1+
--- NOTE | 2021-08-10 20:41 | XRay Report ---
CHEST AND ABDOMINAL SERIES HISTORY: Chest and abdominal pain. Chest one view: Heart size is normal. The lungs are clear. Two-view abdomen: Gas is scattered throughout the abdomen in a nonobstructive fashion. No free air or suspicious calcification. Status post previous cholecystectomy. Signer Name: Masoud Pal MD Signed: 08/10/2021 8:36 PM Workstation Name: [id number]
[2021-08-10 22:10] VITALS: BP 133/81
--- NOTE | 2021-08-11 13:05 | Electrocardiograph Report ---
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
== END 2021-08-10 22:30 | disposition home or self-care (01) ==
LOC: ED 16:04
DX: I13.2 Hypertensive heart and chronic kidney disease with heart failure and with stage 5 chronic kidney disease, or end stage renal disease (principal); E11.22 Type 2 diabetes mellitus with diabetic chronic kidney disease; N18.6 End stage renal disease; I50.9 Heart failure, unspecified; Z99.2 Dependence on renal dialysis; F17.200 Nicotine dependence, unspecified, uncomplicated; G89.29 Other chronic pain; I16.0 Hypertensive urgency; Z79.899 Other long term (current) drug therapy
CPT/HCPCS: 36415; 74022; 80053; 80061; 83690; 84484; 85007; 85025; 93005; 96374; 96375; 99284; J1885